=== PATIENT | female | born 1940 | race Caucasian/White ===

== ENCOUNTER 2018-07-10 13:00 | Outpatient (RCR) | payer MEDICARE, OTHER, SELFPAY ==
--- NOTE | 2018-06-11 13:40 | PT.OIE ---
Current Diagnoses Repeated falls (06/10/18) Provider Visit Care Team Role Provider Type Serena Dye MD Attending Provider Non-Staff Primary Care Provider Specialty: [facility] Practice Address: [address] [place] [address], [place], [address] Email: Physical Therapy Initial Evaluation PT-OP-A Visit Information Start: 06/10/18 16:43 Freq: Status: Active Protocol: Document 06/10/18 16:00 (Rec: 06/10/18 16:45 [email or web address]) Out-Patient Physical Therapy Visit Information Visit Information Visit Type Initial Evaluation Visit Note Pt just received fluid injections on B knees yesterday. Pt is unable to recall the type of injections Visit Start Time 16:00 Visit Stop Time 16:45 Total Visit Minutes 45 Visit Number 1 Number of INSULATION MACHINE OPERATOR Visits 0 Evaluation Information Evaluation Date 06/10/18 Precautions Precautions High fall risk PT-OP-B Current Condition Start: 06/10/18 16:43 Freq: Status: Active Protocol: Document 06/10/18 16:00 HH (Rec: 06/10/18 18:16 HH [email or web address]) Current Condition History of Current Condition Onset Date couple years ago Current Complaints frequent falls, Chronic B knee pain History of Current Condition Pt c/o onset of falling since couple years ago. Pt reports it is primarily due to her chronic low back pain and chronic B knee pain. Pt had multiple falls over the past few years. She had 5 falls within the past 5 months and she explained it has been getting worse primarily due to a fall on 08/02/17 who landed on her B knees. Pt started experiencing increased knee pain, weakness since then that this accident caused ongoing episodes of knee buckling. This increases her frequency of falls tremendously by tripping over obstacles or losing balance. Pt had received cortisone shots for pain management but it didnt help. Pt had 2 injections to increased joint fluid at her knees yesterday but she wasnt able to recall the name of it. Pt also stated she tends to feel dizzy or spinning while extending her head, and tends to lose balance if she is multitasking while walking. Pt's orthopedic MD from yesterday visit prescribed her to use 4WW for mobility for fall prevention. Prior Treatments and Tests antiimflammatory injections on B knees, fluid injections on B knees. Treatment Goals Patient/Caregiver Goals 1. To be able to walk her dog 2 miles a day without using AD 2. To strengthen her B knees 3. To be able to walk outside of the house on the uneven surface without AD 4. Not to have a fall again. Prior Functional Status Baseline Function- ADL's Independent Baseline Function- Mobility Independent Baseline Function- Gait pt was able to walk her dog 2 miles per day prior to last summer Baseline Function- Other Pt was able to amb in community without AD very often prior to last summer. Current Functional Impairments (Reported) Functional Limitations- Mobility/Gait Pt is mostly home bound at this point and is a home ambulator. Pt is afraid to walk outside of her house due to uneven ground. Pt still drives as needed. Pt also uses step to for stair negotiation with b rails due to knee pain and decreased balance. Personal Factors Other Personal Factors That May Effect Depression Therapy/Recovery B knee OA [place] memory loss possible vestibular impairment history of falls PT-OP-C Subjective Start: 06/10/18 16:43 Freq: Status: Active Protocol: Document 06/10/18 16:00 (Rec: 06/10/18 18:16 [email or web address]) OP-PT Subjective Patient Comments Patient Comments My balance is pretty bad at this point and often fall. Patient Questionnaires ABC- Activity Specific Balance Confidence Scale ABC Score 35 ABC Functional Impairment 60 to <80% Impaired (Score 21- 40) Dizziness Handicap Inventory DHI Score 80 DHI Functional Impairment 80 to 99% Impaired (Score 80- 99) OP-PT Pain Assessment Location Bilateral Knee Pain Location Details joint line Intensity 7 Scale Used Numeric (1 - 10) Description Acute Frequency Constant Pain Aggravating Factors Activity Exercise Standing Walking Stair Climbing Pain Alleviating Factors Inactivity PT-OP-D Balance Start: 06/10/18 16:43 Freq: Status: Active Protocol: Document 06/10/18 16:00 HH (Rec: 06/10/18 18:17 [email or web address]) OP-PT Balance Assessment Sitting Balance Static Sitting Balance Ability Normal Dynamic Sitting Balance Ability Normal Standing Balance Static Standing Balance Ability Good Dynamic Standing Balance Ability Fair Device Used none Standing Balance Comments Able to stand unsupported with EO/ EC. but excessive/ delayed sway with small perturbations Balance Tests Espino Balance Test Espino Balance Test Score 33 Espino Impairment Rating 40 to 59% Impaired (Score 23- 33) Single Limb Standing Single Limb- Right 5 Single Limb- Left 0 Delaney Fall Scale Copyright Permission Rhett JM, Rhett RM, Emre SJ. Development of a scale to identify the fall- prone patient. Can J Aging 1989;8;366-7. Shaye Delaney (2009). Preventing patient falls. (2nd ed). [place]: Akins. PT-OP-E Functional Tests Start: 06/10/18 16:43 Freq: Status: Active Protocol: Document 06/10/18 16:00 HH (Rec: 06/10/18 18:16 HH [email or web address]) Functional Tests 6 Minute Walk Test Distance 390 Comments pt stopped at 4 mins due to increased B knee pain Dynamic Gait Index (DGI) Score 12 DGI Impairment Rating 40 to <60% Impaired (Score 10- 14) PT-OP-G Mobility & Gait Start: 06/10/18 16:43 Freq: Status: Active Protocol: Document 06/10/18 16:00 HH (Rec: 06/11/18 13:32 HH [email or web address]) OP Gait Assessment Gait Gait Assistance Required: Independent Distance (Feet) 300 Able to Maintain Weight Bearing Status Yes During Gait Assistive Devices Assistive Device None Gait Deviations General Gait Pattern Antalgic Decreased Stride Length Decreased Feet Clearance Factors Limiting Gait Function Factors Limiting Gait Function Decreased Activity Tolerance Decreased Strength Limited Range of Motion Pain Poor Balance Comments Gait Comments Pt tends to stop for talking / multitasking during ambulation She also has uneven stride length with antaglic gait more on the R side due to B knee pain R>L. pt tends to take increased time and appear unsteady for turns. She often shows signs of LOB/ mis-stepping during amb with speed changes. PT-OP-J Posture/Palpation/Skin Start: 06/10/18 16:43 Freq: Status: Active Protocol: Document 06/10/18 16:00 HH (Rec: 06/11/18 13:32 HH [email or web address]) Posture Evaluation Position Standing Head/C-Spine Posture Forward Head Shoulder Posture (L) Rounded (R) Rounded Knee Posture (L) Genu Valgus (R) Genu Valgus (R) Excess Flexion Skin Assessment Other Assessments Skin Assessment Comments varicose veins on R knee laterally and medially PT-OP-M Strength Start: 06/10/18 16:43 Freq: Status: Active Protocol: Document 06/10/18 16:00 (Rec: 06/11/18 13:32 [email or web address]) Hip Strength Hip Manual Muscle Testing Right Flexion (L2) 4+ Good+ Extension (S1) 4+ Good+ Abduction 4 Good Adduction 4+ Good+ Left Flexion (L2) 4+ Good+ Extension (S1) 4+ Good+ Abduction 4 Good Adduction 4+ Good+ Knee Strength Knee Manual Muscle Testing Right Flexion (S2) 3+ Fair+ Extension (L3) 3 Fair Comments pain during resisted extension / flexion Left Flexion (S2) 3+ Fair+ Extension (L3) 3 Fair Comments pain during resisted extension / flexion PT-OP-T Assessment and Plan Start: 06/10/18 16:43 Freq: Status: Active Protocol: Document 06/10/18 16:00 (Rec: 06/11/18 13:32 [email or web address]) Physical Therapy Assessment Rehab Potential Rehabilitation Potential Good Evaluation Complexity Number of Personal Factors/Comorbidities 3 or More Number of Body Systems Impaired 4 or More Clinical Presentation at Evaluation Evolving Impairments Impairments Activity Tolerance Balance Functional Activities Functional Mobility Gait Pain Posture ROM Sensation Soft Tissue Mobility Strength Other Concerns Fall Risk high Barriers to Rehabilitation depression, OA in B knees, chronic back pain, [place], memory loss Goals stair negotiation Impairment use rails with step to pattern Nursing Home Goal (LTG) Pt will be able to use step through pattern to negotiate stairs effectively with / without handrails. LTG Duration 12 weeks Walking distance Impairment unable to walk in the community Presentation Team Member Goal (LTG) pt will be able to walk with her dog 1 mile a day without AD to improve her quality of life LTG Duration 12 weeks ABC balance scale Impairment low ABC balance scale (low confidence level) Presentation Team Member Goal (LTG) pt will increase her confidence regarding her balance for daily activites to 50% (currently at 35%) ESPINO balance Impairment low ESPINO balance score at 33 Presentation Team Member Goal (LTG) pt will be able to increase her ESPINO score to 45/56 to amb safely without assistive device and less likely to fall LTG Duration 12 weeks Assessment Summary Assessment Pt is high complexity with frequent falls and chronic back and bilateral knee pain. Upon assessment, pt has low ESPINO score 33/56, DGI 12/24, Dizziness questionnaire at 80 and ABC balance scale at 35%. She is also only able to amb 390 feet without AD for 6 min walk test who has to stop at 4th min due to increased B knee pain. Pt presents to clinic today with significant B knee pain R>L 6-09/02 post fluid injections as pt unable to recall the name, which makes balance assessment difficult. Pt states her balance issue started years ago but getting signficant worse after she fell on her knees last summer which caused her a lot of pain with buckling episodes. Pt tends to loss her balance with head turns, talking/ multitasking during amb, turning while walking and single leg stance. She also stated she tends to experience spinning sensation with cervical extension. Pt will need cont assessment for next visit for her vestibular system and B knee and trunk ROM. Pt will benefit from skilled physical therapy for B LE strengthening, flexibility training, gait training, and balance training, walking program and possible vestibular rehab. Physical Therapy Plan Frequency and Duration Frequency of Treatment 2x/Week Duration of Treatment 12 weeks Plan of Care Start Date 06/10/18 Plan of Care End Date 09/09/18 Therapeutic Interventions Therapeutic Interventions Aquatic Therapy Balance Training Coordination Training Gait Training Home Exercise Program Joint Mobilizations Manual Therapy Neuromuscular Re-education Patient/Caregiver Education Self-Care/Home Management Soft Tissue Mobilization Therapeutic Activities Therapeutic Exercises Vestibular Rehabilitation Next Visit Focus/Plan Next Note Type Treatment Note Next Visit Plan cont assess pt's overall mobility, vestibular assessment. check pt's knee pain start with gentle ROM/ strengthening as malaika on B LEs, static balance with head turns , multitasking, EO, EC
--- NOTE | 2018-06-11 13:40 | PT.OPPOC ---
Current Diagnoses Repeated falls (06/10/18) Provider Visit Care Team Role Provider Type Serena Dye MD Attending Provider Non-Staff Primary Care Provider Specialty: Family Practice Address: [address] [place] [address], [place], [place], [facility] Email: Plan Of Care PT-OP-T Assessment and Plan Start: 06/10/18 16:43 Freq: Status: Active Protocol: Document 06/10/18 16:00 HH (Rec: 06/11/18 13:32 HH [email or web address]) Physical Therapy Assessment Rehab Potential Rehabilitation Potential Good Evaluation Complexity Number of Personal Factors/Comorbidities 3 or More Number of Body Systems Impaired 4 or More Clinical Presentation at Evaluation Evolving Impairments Impairments Activity Tolerance Balance Functional Activities Functional Mobility Gait Pain Posture ROM Sensation Soft Tissue Mobility Strength Other Concerns Fall Risk high Barriers to Rehabilitation depression, OA in B knees, chronic back pain, [place], memory loss Goals stair negotiation Impairment use rails with step to pattern Half-Way Goal (LTG) Pt will be able to use step through pattern to negotiate stairs effectively with / without handrails. LTG Duration 12 weeks Walking distance Impairment unable to walk in the community Half-Way Goal (LTG) pt will be able to walk with her dog 1 mile a day without AD to improve her quality of life LTG Duration 12 weeks ABC balance scale Impairment low ABC balance scale (low confidence level) Half-Way Goal (LTG) pt will increase her confidence regarding her balance for daily activites to 50% (currently at 35%) ESPINO balance Impairment low ESPINO balance score at 33 Local Telephone Operator Goal (LTG) pt will be able to increase her ESPINO score to 45/56 to amb safely without assistive device and less likely to fall LTG Duration 12 weeks Assessment Summary Assessment Pt is high complexity with frequent falls and chronic back and bilateral knee pain. Upon assessment, pt has low ESPINO score 33/56, DGI 12/24, Dizziness questionnaire at 80 and ABC balance scale at 35%. She is also only able to amb 390 feet without AD for 6 min walk test who has to stop at 4th min due to increased B knee pain. Pt presents to clinic today with significant B knee pain R>L 6-7/10 post fluid injections as pt unable to recall the name, which makes balance assessment difficult. Pt states her balance issue started years ago but getting signficant worse after she fell on her knees last summer which caused her a lot of pain with buckling episodes. Pt tends to loss her balance with head turns, talking/ multitasking during amb, turning while walking and single leg stance. She also stated she tends to experience spinning sensation with cervical extension. Pt will need cont assessment for next visit for her vestibular system and B knee and trunk ROM. Pt will benefit from skilled physical therapy for B LE strengthening, flexibility training, gait training, and balance training, walking program and possible vestibular rehab. Physical Therapy Plan Frequency and Duration Frequency of Treatment 2x/Week Duration of Treatment 12 weeks Plan of Care Start Date 06/10/18 Plan of Care End Date 09/09/18 Therapeutic Interventions Therapeutic Interventions Aquatic Therapy Balance Training Coordination Training Gait Training Home Exercise Program Joint Mobilizations Manual Therapy Neuromuscular Re-education Patient/Caregiver Education Self-Care/Home Management Soft Tissue Mobilization Therapeutic Activities Therapeutic Exercises Vestibular Rehabilitation Next Visit Focus/Plan Next Note Type Treatment Note Next Visit Plan cont assess pt's overall mobility, vestibular assessment. check pt's knee pain start with gentle ROM/ strengthening as malaika on B LEs, static balance with head turns , multitasking, EO, EC Plan of Care Dates Plan of Care Start Date 06/10/18 Plan of Care End Date 09/09/18 Please Sign and Return: I have reviewed this Plan of Care and certify that the skilled therapy services above are required to meet the patient?s needs. Physician Signature Date Printed Name and Credentials Clinical Instructor Signature Printed Name and Credentials
--- NOTE | 2018-06-12 15:28 | PT.OTN ---
Current Diagnoses Repeated falls (06/12/18) Physical Therapy Treatment Note PT-OP-A Visit Information Start: 06/10/18 16:43 Freq: Status: Active Protocol: Document 06/12/18 15:11 SA (Rec: 06/12/18 15:28 SA [email or web address]) Out-Patient Physical Therapy Visit Information Visit Information Visit Type Treatment Note Visit Note Pt reports B knees are worse than back pain. Visit Start Time 13:45 Visit Stop Time 14:30 Total Visit Minutes 45 Visit Number 2 Number of CYTOTECHNOLOGIST SUPERVISOR Visits 1 PT-OP-B Current Condition Start: 06/10/18 16:43 Freq: Status: Active Protocol: Document 06/10/18 16:00 HH (Rec: 06/10/18 18:16 HH [email or web address]) Current Condition History of Current Condition Onset Date couple years ago Current Complaints frequent falls, Chronic B knee pain History of Current Condition Pt c/o onset of falling since couple years ago. Pt reports it is primarily due to her chronic low back pain and chronic B knee pain. Pt had multiple falls over the past few years. She had 5 falls within the past 5 months and she explained it has been getting worse primarily due to a fall on 08/02/17 who landed on her B knees. Pt started experiencing increased knee pain, weakness since then that this accident caused ongoing episodes of knee buckling. This increases her frequency of falls tremendously by tripping over obstacles or losing balance. Pt had received cortisone shots for pain management but it didnt help. Pt had 2 injections to increased joint fluid at her knees yesterday but she wasnt able to recall the name of it. Pt also stated she tends to feel dizzy or spinning while extending her head, and tends to lose balance if she is multitasking while walking. Pt's orthopedic MD from yesterday visit prescribed her to use 4WW for mobility for fall prevention. Prior Treatments and Tests antiimflammatory injections on B knees, fluid injections on B knees. Treatment Goals Patient/Caregiver Goals 1. To be able to walk her dog 2 miles a day without using AD 2. To strengthen her B knees 3. To be able to walk outside of the house on the uneven surface without AD 4. Not to have a fall again. Prior Functional Status Baseline Function- ADL's Independent Baseline Function- Mobility Independent Baseline Function- Gait pt was able to walk her dog 2 miles per day prior to last summer Baseline Function- Other Pt was able to amb in community without AD very often prior to last summer. Current Functional Impairments (Reported) Functional Limitations- Mobility/Gait Pt is mostly home bound at this point and is a home ambulator. Pt is afraid to walk outside of her house due to uneven ground. Pt still drives as needed. Pt also uses step to for stair negotiation with b rails due to knee pain and decreased balance. Personal Factors Other Personal Factors That May Effect Depression Therapy/Recovery B knee OA [place] memory loss possible vestibular impairment history of falls PT-OP-C Subjective Start: 06/10/18 16:43 Freq: Status: Active Protocol: Document 06/12/18 15:11 SA (Rec: 06/12/18 15:28 SA [email or web address]) OP-PT Subjective Patient Comments Patient Comments Pt states her DR perscribed her a walker d/t frequent falls but she has not got it yet, PT-OP-D Balance Start: 06/10/18 16:43 Freq: Status: Active Protocol: Document 06/10/18 16:00 HH (Rec: 06/10/18 18:17 HH [email or web address]) OP-PT Balance Assessment Sitting Balance Static Sitting Balance Ability Normal Dynamic Sitting Balance Ability Normal Standing Balance Static Standing Balance Ability Good Dynamic Standing Balance Ability Fair Device Used none Standing Balance Comments Able to stand unsupported with EO/ EC. but excessive/ delayed sway with small perturbations Balance Tests Barrientos Balance Test Barrientos Balance Test Score 33 Barrientos Impairment Rating 40 to 59% Impaired (Score 23- 33) Single Limb Standing Single Limb- Right 5 Single Limb- Left 0 Delaney Fall Scale Copyright Permission Rhett JM, Rhett RM, Emre SJ. Development of a scale to identify the fall- prone patient. Can J Aging 1989;8;366-7. Shaye Delaney (2009). Preventing patient falls. (2nd ed). [place]: Akins. PT-OP-E Functional Tests Start: 06/10/18 16:43 Freq: Status: Active Protocol: Document 06/10/18 16:00 HH (Rec: 06/10/18 18:16 HH [email or web address]) Functional Tests 6 Minute Walk Test Distance 390 Comments pt stopped at 4 mins due to increased B knee pain Dynamic Gait Index (DGI) Score 12 DGI Impairment Rating 40 to <60% Impaired (Score 10- 14) PT-OP-G Mobility & Gait Start: 06/10/18 16:43 Freq: Status: Active Protocol: Document 06/10/18 16:00 HH (Rec: 06/11/18 13:32 [email or web address]) OP Gait Assessment Gait Gait Assistance Required: Independent Distance (Feet) 300 Able to Maintain Weight Bearing Status Yes During Gait Assistive Devices Assistive Device None Gait Deviations General Gait Pattern Antalgic Decreased Stride Length Decreased Feet Clearance Factors Limiting Gait Function Factors Limiting Gait Function Decreased Activity Tolerance Decreased Strength Limited Range of Motion Pain Poor Balance Comments Gait Comments Pt tends to stop for talking / multitasking during ambulation She also has uneven stride length with antaglic gait more on the R side due to B knee pain R>L. pt tends to take increased time and appear unsteady for turns. She often shows signs of LOB/ mis-stepping during amb with speed changes. PT-OP-J Posture/Palpation/Skin Start: 06/10/18 16:43 Freq: Status: Active Protocol: Document 06/10/18 16:00 HH (Rec: 06/11/18 13:32 [email or web address]) Posture Evaluation Position Standing Head/C-Spine Posture Forward Head Shoulder Posture (L) Rounded (R) Rounded Knee Posture (L) Genu Valgus (R) Genu Valgus (R) Excess Flexion Skin Assessment Other Assessments Skin Assessment Comments varicose veins on R knee laterally and medially PT-OP-M Strength Start: 06/10/18 16:43 Freq: Status: Active Protocol: Document 06/10/18 16:00 HH (Rec: 06/11/18 13:32 [email or web address]) Hip Strength Hip Manual Muscle Testing Right Flexion (L2) 4+ Good+ Extension (S1) 4+ Good+ Abduction 4 Good Adduction 4+ Good+ Left Flexion (L2) 4+ Good+ Extension (S1) 4+ Good+ Abduction 4 Good Adduction 4+ Good+ Knee Strength Knee Manual Muscle Testing Right Flexion (S2) 3+ Fair+ Extension (L3) 3 Fair Comments pain during resisted extension / flexion Left Flexion (S2) 3+ Fair+ Extension (L3) 3 Fair Comments pain during resisted extension / flexion PT-OP-Q Treatments Start: 06/10/18 16:43 Freq: Status: Active Protocol: Document 06/12/18 15:11 SA (Rec: 04/19/19 15:28 [email or web address]) Cardio Equipment Recumbent Elliptical (Biodex) Duration (Minutes) 5 Resistance 2 Therapeutic Exercises Supine Exercises PPT with TrA activation Reps/Minutes 5 x 10 Comments Needs verbal/tactile cues, difficulty activating HS sets/heel digs Side bilateral Reps/Minutes 5 x 10 Gluteal sets Side bilateral Reps/Minutes 5 x 10 Supine SAQs Side bilateral Resistance 0# Equipment Used bolster Reps/Minutes 10x Neuro Re-Education Treatment Balance Activities Lateral stepping Details no resistance Surface level Equipment at bar Reps/Duration 2 lengths Slow march Surface level Equipment at bar Reps/Duration 4 lengths Comments focus on control and alignment SLS Surface level Reps/Duration 3-5 holds 3x each Heel/Toe walking Surface level Equipment at bar Reps/Duration 4 lengths PT-OP-R Modalities Start: 06/10/18 16:43 Freq: Status: Active Protocol: Document 06/12/18 15:11 SA (Rec: 06/12/18 15:28 [email or web address]) Hot Pack/Cold Pack Treatment Cold Pack Location B knees Patient Position Supine Treatment Duration (minutes) 10 Patient Tolerance Good PT-OP-T Assessment and Plan Start: 06/10/18 16:43 Freq: Status: Active Protocol: Document 06/12/18 15:11 SA (Rec: 06/12/18 15:28 [email or web address]) Physical Therapy Assessment Assessment Summary Assessment Initiated gentle LE strengthening and dynamic balance program to improve balance/stability and reduce risk of falls. Pt tolerated well, CP to finish. Physical Therapy Plan Next Visit Focus/Plan Next Note Type Treatment Note Next Visit Plan Assess response to increased activity/exercise, progress balance, gait and strength training as tolerated.
--- NOTE | 2018-06-24 19:12 | PT.OTN ---
Current Diagnoses Repeated falls (06/24/18) Physical Therapy Treatment Note PT-OP-A Visit Information Start: 06/10/18 16:43 Freq: Status: Active Protocol: Document 06/24/18 14:30 HH (Rec: 06/24/18 19:12 HH [email or web address]) Out-Patient Physical Therapy Visit Information Visit Information Visit Type Treatment Note Visit Note pt just had 3rd fluid injections on B knees. Will have her 4th one next week which is the final one as well . Visit Start Time 14:30 Visit Stop Time 15:15 Total Visit Minutes 45 Visit Number 3 Number of DEPUTY COMMISSIONER Visits 0 PT-OP-B Current Condition Start: 06/10/18 16:43 Freq: Status: Active Protocol: Document 06/10/18 16:00 HH (Rec: 06/10/18 18:16 HH [email or web address]) Current Condition History of Current Condition Onset Date couple years ago Current Complaints frequent falls, Chronic B knee pain History of Current Condition Pt c/o onset of falling since couple years ago. Pt reports it is primarily due to her chronic low back pain and chronic B knee pain. Pt had multiple falls over the past few years. She had 5 falls within the past 5 months and she explained it has been getting worse primarily due to a fall on 08/02/17 who landed on her B knees. Pt started experiencing increased knee pain, weakness since then that this accident caused ongoing episodes of knee buckling. This increases her frequency of falls tremendously by tripping over obstacles or losing balance. Pt had received cortisone shots for pain management but it didnt help. Pt had 2 injections to increased joint fluid at her knees yesterday but she wasnt able to recall the name of it. Pt also stated she tends to feel dizzy or spinning while extending her head, and tends to lose balance if she is multitasking while walking. Pt's orthopedic MD from yesterday visit prescribed her to use 4WW for mobility for fall prevention. Prior Treatments and Tests antiimflammatory injections on B knees, fluid injections on B knees. Treatment Goals Patient/Caregiver Goals 1. To be able to walk her dog 2 miles a day without using AD 2. To strengthen her B knees 3. To be able to walk outside of the house on the uneven surface without AD 4. Not to have a fall again. Prior Functional Status Baseline Function- ADL's Independent Baseline Function- Mobility Independent Baseline Function- Gait pt was able to walk her dog 2 miles per day prior to last summer Baseline Function- Other Pt was able to amb in community without AD very often prior to last summer. Current Functional Impairments (Reported) Functional Limitations- Mobility/Gait Pt is mostly home bound at this point and is a home ambulator. Pt is afraid to walk outside of her house due to uneven ground. Pt still drives as needed. Pt also uses step to for stair negotiation with b rails due to knee pain and decreased balance. Personal Factors Other Personal Factors That May Effect Depression Therapy/Recovery B knee OA [place] memory loss possible vestibular impairment history of falls PT-OP-C Subjective Start: 06/10/18 16:43 Freq: Status: Active Protocol: Document 06/24/18 14:30 HH (Rec: 06/24/18 19:12 HH [email or web address]) OP-PT Subjective Patient Comments Patient Comments My knee has been sore today after injection. I also got my walker but i dont think i really need it at this point. Im feeling less dizzy and slightly stronger lately. PT-OP-D Balance Start: 06/10/18 16:43 Freq: Status: Active Protocol: Document 06/10/18 16:00 HH (Rec: 06/10/18 18:17 HH [email or web address]) OP-PT Balance Assessment Sitting Balance Static Sitting Balance Ability Normal Dynamic Sitting Balance Ability Normal Standing Balance Static Standing Balance Ability Good Dynamic Standing Balance Ability Fair Device Used none Standing Balance Comments Able to stand unsupported with EO/ EC. but excessive/ delayed sway with small perturbations Balance Tests Barrientos Balance Test Barrientos Balance Test Score 33 Barrientos Impairment Rating 40 to 59% Impaired (Score 23- 33) Single Limb Standing Single Limb- Right 5 Single Limb- Left 0 Delaney Fall Scale Copyright Permission Rhett FREIRE, Rhett RM, Emre SJ. Development of a scale to identify the fall- prone patient. Can J Aging 1989;8;366-7. Shaye Delaney (2009). Preventing patient falls. (2nd ed). [place]: [employer]. PT-OP-E Functional Tests Start: 06/10/18 16:43 Freq: Status: Active Protocol: Document 06/10/18 16:00 HH (Rec: 06/10/18 18:16 HH [email or web address]) Functional Tests 6 Minute Walk Test Distance 390 Comments pt stopped at 4 mins due to increased B knee pain Dynamic Gait Index (DGI) Score 12 DGI Impairment Rating 40 to <60% Impaired (Score 10- 14) PT-OP-G Mobility & Gait Start: 06/10/18 16:43 Freq: Status: Active Protocol: Document 06/10/18 16:00 HH (Rec: 06/11/18 13:32 [email or web address]) OP Gait Assessment Gait Gait Assistance Required: Independent Distance (Feet) 300 Able to Maintain Weight Bearing Status Yes During Gait Assistive Devices Assistive Device None Gait Deviations General Gait Pattern Antalgic Decreased Stride Length Decreased Feet Clearance Factors Limiting Gait Function Factors Limiting Gait Function Decreased Activity Tolerance Decreased Strength Limited Range of Motion Pain Poor Balance Comments Gait Comments Pt tends to stop for talking / multitasking during ambulation She also has uneven stride length with antaglic gait more on the R side due to B knee pain R>L. pt tends to take increased time and appear unsteady for turns. She often shows signs of LOB/ mis-stepping during amb with speed changes. PT-OP-J Posture/Palpation/Skin Start: 06/10/18 16:43 Freq: Status: Active Protocol: Document 06/10/18 16:00 HH (Rec: 06/11/18 13:32 [email or web address]) Posture Evaluation Position Standing Head/C-Spine Posture Forward Head Shoulder Posture (L) Rounded (R) Rounded Knee Posture (L) Genu Valgus (R) Genu Valgus (R) Excess Flexion Skin Assessment Other Assessments Skin Assessment Comments varicose veins on R knee laterally and medially PT-OP-M Strength Start: 06/10/18 16:43 Freq: Status: Active Protocol: Document 06/10/18 16:00 HH (Rec: 06/11/18 13:32 [email or web address]) Hip Strength Hip Manual Muscle Testing Right Flexion (L2) 4+ Good+ Extension (S1) 4+ Good+ Abduction 4 Good Adduction 4+ Good+ Left Flexion (L2) 4+ Good+ Extension (S1) 4+ Good+ Abduction 4 Good Adduction 4+ Good+ Knee Strength Knee Manual Muscle Testing Right Flexion (S2) 3+ Fair+ Extension (L3) 3 Fair Comments pain during resisted extension / flexion Left Flexion (S2) 3+ Fair+ Extension (L3) 3 Fair Comments pain during resisted extension / flexion PT-OP-Q Treatments Start: 06/10/18 16:43 Freq: Status: Active Protocol: Document 06/24/18 14:30 HH (Rec: 06/24/18 19:12 HH [email or web address]) Cardio Equipment Recumbent Bicycle Duration (Minutes) 6 Resistance 5 Seat Position 5 Gym Equipment Shuttle Recovery B squat 2 Details forefoot push Resistance 35 Shuttle Recovery Platform Stable Reps/Time cues on slow squat, facilitate knee flexion B squat Details heel push off Resistance 50 Shuttle Recovery Platform Stable Reps/Time cues on slow squat Therapeutic Exercises Supine Exercises knee to chest Side bilateral Reps/Minutes 10 x3 Comments PT manual assistance HS sets/heel digs Side bilateral Reps/Minutes 5 x 10 Supine SAQs Side bilateral Resistance 0# Equipment Used towel Reps/Minutes 10 secs hold x 3 Neuro Re-Education Treatment Balance Activities Slow march Surface level Equipment at //bar, yoga warren on floor Reps/Duration 8 round trips Comments focus on control and alignment SLS Surface level Reps/Duration 3-5 holds 3x each PT-OP-R Modalities Start: 06/10/18 16:43 Freq: Status: Active Protocol: Document 06/12/18 15:11 SA (Rec: 06/12/18 15:28 SA [email or web address]) Hot Pack/Cold Pack Treatment Cold Pack Location B knees Patient Position Supine Treatment Duration (minutes) 10 Patient Tolerance Good PT-OP-T Assessment and Plan Start: 06/10/18 16:43 Freq: Status: Active Protocol: Document 06/24/18 14:30 HH (Rec: 06/24/18 19:12 HH [email or web address]) Physical Therapy Assessment Assessment Summary Assessment Pt showed improved B knee flexibility and reduced of symptoms possibly due to her knee injections. Tx focused on LE strengthening with leg press (slow control with heel/ forefoot to facilitate knee flexion end range strength). High knee walking, and marching for single leg balance. Physical Therapy Plan Next Visit Focus/Plan Next Note Type Treatment Note Next Visit Plan Assess response to increased recumbent bike, leg press to POC activity/exercise, progress balance, gait and strength training as tolerated. Single leg balance/ strengthening
--- NOTE | 2018-06-26 14:17 | PT.OTN ---
Current Diagnoses Repeated falls (06/26/18) Physical Therapy Treatment Note PT-OP-A Visit Information Start: 06/10/18 16:43 Freq: Status: Active Protocol: Document 06/26/18 14:11 SA (Rec: 06/26/18 14:17 SA [email or web address]) Out-Patient Physical Therapy Visit Information Visit Information Visit Type Treatment Note Visit Start Time 13:00 Visit Stop Time 13:45 Total Visit Minutes 45 Visit Number 4 Number of AUXILIARY POWERPLANT OPERATOR Visits 1 PT-OP-B Current Condition Start: 06/10/18 16:43 Freq: Status: Active Protocol: Document 06/10/18 16:00 HH (Rec: 06/10/18 18:16 HH [email or web address]) Current Condition History of Current Condition Onset Date couple years ago Current Complaints frequent falls, Chronic B knee pain History of Current Condition Pt c/o onset of falling since couple years ago. Pt reports it is primarily due to her chronic low back pain and chronic B knee pain. Pt had multiple falls over the past few years. She had 5 falls within the past 5 months and she explained it has been getting worse primarily due to a fall on 08/02/17 who landed on her B knees. Pt started experiencing increased knee pain, weakness since then that this accident caused ongoing episodes of knee buckling. This increases her frequency of falls tremendously by tripping over obstacles or losing balance. Pt had received cortisone shots for pain management but it didnt help. Pt had 2 injections to increased joint fluid at her knees yesterday but she wasnt able to recall the name of it. Pt also stated she tends to feel dizzy or spinning while extending her head, and tends to lose balance if she is multitasking while walking. Pt's orthopedic MD from yesterday visit prescribed her to use 4WW for mobility for fall prevention. Prior Treatments and Tests antiimflammatory injections on B knees, fluid injections on B knees. Treatment Goals Patient/Caregiver Goals 1. To be able to walk her dog 2 miles a day without using AD 2. To strengthen her B knees 3. To be able to walk outside of the house on the uneven surface without AD 4. Not to have a fall again. Prior Functional Status Baseline Function- ADL's Independent Baseline Function- Mobility Independent Baseline Function- Gait pt was able to walk her dog 2 miles per day prior to last summer Baseline Function- Other Pt was able to amb in community without AD very often prior to last summer. Current Functional Impairments (Reported) Functional Limitations- Mobility/Gait Pt is mostly home bound at this point and is a home ambulator. Pt is afraid to walk outside of her house due to uneven ground. Pt still drives as needed. Pt also uses step to for stair negotiation with b rails due to knee pain and decreased balance. Personal Factors Other Personal Factors That May Effect Depression Therapy/Recovery B knee OA [place] memory loss possible vestibular impairment history of falls PT-OP-C Subjective Start: 06/10/18 16:43 Freq: Status: Active Protocol: Document 06/26/18 14:11 SA (Rec: 06/26/18 14:17 SA [email or web address]) OP-PT Subjective Patient Comments Patient Comments Pt reports knees are painful today, has not had any benefit from knee injections yet. PT-OP-D Balance Start: 06/10/18 16:43 Freq: Status: Active Protocol: Document 06/10/18 16:00 HH (Rec: 06/10/18 18:17 HH [email or web address]) OP-PT Balance Assessment Sitting Balance Static Sitting Balance Ability Normal Dynamic Sitting Balance Ability Normal Standing Balance Static Standing Balance Ability Good Dynamic Standing Balance Ability Fair Device Used none Standing Balance Comments Able to stand unsupported with EO/ EC. but excessive/ delayed sway with small perturbations Balance Tests Barrientos Balance Test Barrientos Balance Test Score 33 Barrientos Impairment Rating 40 to 59% Impaired (Score 23- 33) Single Limb Standing Single Limb- Right 5 Single Limb- Left 0 Delaney Fall Scale Copyright Permission Rhett FREIRE, Rhett RM, Emre SJ. Development of a scale to identify the fall- prone patient. Can J Aging 1989;8;366-7. Shaye Delaney (2009). Preventing patient falls. (2nd ed). [place]: [employer]. PT-OP-E Functional Tests Start: 06/10/18 16:43 Freq: Status: Active Protocol: Document 06/10/18 16:00 HH (Rec: 06/10/18 18:16 HH [email or web address]) Functional Tests 6 Minute Walk Test Distance 390 Comments pt stopped at 4 mins due to increased B knee pain Dynamic Gait Index (DGI) Score 12 DGI Impairment Rating 40 to <60% Impaired (Score 10- 14) PT-OP-G Mobility & Gait Start: 06/10/18 16:43 Freq: Status: Active Protocol: Document 06/10/18 16:00 HH (Rec: 06/11/18 13:32 [email or web address]) OP Gait Assessment Gait Gait Assistance Required: Independent Distance (Feet) 300 Able to Maintain Weight Bearing Status Yes During Gait Assistive Devices Assistive Device None Gait Deviations General Gait Pattern Antalgic Decreased Stride Length Decreased Feet Clearance Factors Limiting Gait Function Factors Limiting Gait Function Decreased Activity Tolerance Decreased Strength Limited Range of Motion Pain Poor Balance Comments Gait Comments Pt tends to stop for talking / multitasking during ambulation She also has uneven stride length with antaglic gait more on the R side due to B knee pain R>L. pt tends to take increased time and appear unsteady for turns. She often shows signs of LOB/ mis-stepping during amb with speed changes. PT-OP-J Posture/Palpation/Skin Start: 06/10/18 16:43 Freq: Status: Active Protocol: Document 06/10/18 16:00 HH (Rec: 06/11/18 13:32 [email or web address]) Posture Evaluation Position Standing Head/C-Spine Posture Forward Head Shoulder Posture (L) Rounded (R) Rounded Knee Posture (L) Genu Valgus (R) Genu Valgus (R) Excess Flexion Skin Assessment Other Assessments Skin Assessment Comments varicose veins on R knee laterally and medially PT-OP-M Strength Start: 06/10/18 16:43 Freq: Status: Active Protocol: Document 06/10/18 16:00 HH (Rec: 06/11/18 13:32 [email or web address]) Hip Strength Hip Manual Muscle Testing Right Flexion (L2) 4+ Good+ Extension (S1) 4+ Good+ Abduction 4 Good Adduction 4+ Good+ Left Flexion (L2) 4+ Good+ Extension (S1) 4+ Good+ Abduction 4 Good Adduction 4+ Good+ Knee Strength Knee Manual Muscle Testing Right Flexion (S2) 3+ Fair+ Extension (L3) 3 Fair Comments pain during resisted extension / flexion Left Flexion (S2) 3+ Fair+ Extension (L3) 3 Fair Comments pain during resisted extension / flexion PT-OP-Q Treatments Start: 06/10/18 16:43 Freq: Status: Active Protocol: Document 06/26/18 14:11 SA (Rec: 06/26/18 14:17 SA [email or web address]) Cardio Equipment Recumbent Bicycle Duration (Minutes) 6 Resistance 4 Seat Position 5 Gym Equipment Shuttle Recovery B squat 2 Details forefoot push Resistance 35 Shuttle Recovery Platform Stable Reps/Time cues on slow squat, facilitate knee flexion B squat Details heel push off Resistance 50 Shuttle Recovery Platform Stable Reps/Time cues on slow squat Therapeutic Exercises Supine Exercises PPT with TrA activation Reps/Minutes 5 x 10 Comments Needs verbal/tactile cues, difficulty activating HS sets/heel digs Side bilateral Reps/Minutes 5 x 10 Gluteal sets Side bilateral Reps/Minutes 5 x 10 Supine SAQs Side bilateral Resistance 0# Equipment Used towel Reps/Minutes 10 secs hold x 3 Neuro Re-Education Treatment Balance Activities Lateral stepping Details no resistance Surface level Equipment //bars Reps/Duration 2 lengths Slow march Surface level Reps/Duration 8 round trips Comments focus on control and alignment SLS Surface level Reps/Duration 3-5 holds 3x each Heel/Toe walking Surface level Equipment at bar Reps/Duration 4 lengths PT-OP-R Modalities Start: 06/10/18 16:43 Freq: Status: Active Protocol: Document 06/12/18 15:11 (Rec: 06/12/18 15:28 [email or web address]) Hot Pack/Cold Pack Treatment Cold Pack Location B knees Patient Position Supine Treatment Duration (minutes) 10 Patient Tolerance Good PT-OP-T Assessment and Plan Start: 06/10/18 16:43 Freq: Status: Active Protocol: Document 06/26/18 14:11 (Rec: 06/26/18 14:17 [email or web address]) Physical Therapy Assessment Assessment Summary Assessment Pt with more knee pain today but able to complete exercise without increase in pain, somewhat unsteady with gait today, progressing balance training. Physical Therapy Plan Next Visit Focus/Plan Next Note Type Treatment Note Next Visit Plan Continue to progress strength and balance as tolerated.
--- NOTE | 2018-07-01 15:02 | PT.OTN ---
Current Diagnoses Repeated falls (07/01/18) Physical Therapy Treatment Note PT-OP-A Visit Information Start: 06/10/18 16:43 Freq: Status: Active Protocol: Document 07/01/18 13:45 HH (Rec: 07/01/18 15:02 [email or web address]) Out-Patient Physical Therapy Visit Information Visit Information Visit Type Treatment Note Visit Start Time 13:45 Visit Stop Time 14:35 Total Visit Minutes 50 Visit Number 5 Number of REFLESHER Visits 0 PT-OP-B Current Condition Start: 06/10/18 16:43 Freq: Status: Active Protocol: Document 06/10/18 16:00 HH (Rec: 06/10/18 18:16 HH [email or web address]) Current Condition History of Current Condition Onset Date couple years ago Current Complaints frequent falls, Chronic B knee pain History of Current Condition Pt c/o onset of falling since couple years ago. Pt reports it is primarily due to her chronic low back pain and chronic B knee pain. Pt had multiple falls over the past few years. She had 5 falls within the past 5 months and she explained it has been getting worse primarily due to a fall on 08/02/17 who landed on her B knees. Pt started experiencing increased knee pain, weakness since then that this accident caused ongoing episodes of knee buckling. This increases her frequency of falls tremendously by tripping over obstacles or losing balance. Pt had received cortisone shots for pain management but it didnt help. Pt had 2 injections to increased joint fluid at her knees yesterday but she wasnt able to recall the name of it. Pt also stated she tends to feel dizzy or spinning while extending her head, and tends to lose balance if she is multitasking while walking. Pt's orthopedic MD from yesterday visit prescribed her to use 4WW for mobility for fall prevention. Prior Treatments and Tests antiimflammatory injections on B knees, fluid injections on B knees. Treatment Goals Patient/Caregiver Goals 1. To be able to walk her dog 2 miles a day without using AD 2. To strengthen her B knees 3. To be able to walk outside of the house on the uneven surface without AD 4. Not to have a fall again. Prior Functional Status Baseline Function- ADL's Independent Baseline Function- Mobility Independent Baseline Function- Gait pt was able to walk her dog 2 miles per day prior to last summer Baseline Function- Other Pt was able to amb in community without AD very often prior to last summer. Current Functional Impairments (Reported) Functional Limitations- Mobility/Gait Pt is mostly home bound at this point and is a home ambulator. Pt is afraid to walk outside of her house due to uneven ground. Pt still drives as needed. Pt also uses step to for stair negotiation with b rails due to knee pain and decreased balance. Personal Factors Other Personal Factors That May Effect Depression Therapy/Recovery B knee OA [place] memory loss possible vestibular impairment history of falls PT-OP-C Subjective Start: 06/10/18 16:43 Freq: Status: Active Protocol: Document 07/01/18 13:45 HH (Rec: 07/01/18 15:02 HH [email or web address]) OP-PT Subjective Patient Comments Patient Comments soreness R>L. Pt had her last injections (4th) on Friday. Pt was told by MD that she could take it again 6 months as needed. PT-OP-D Balance Start: 06/10/18 16:43 Freq: Status: Active Protocol: Document 06/10/18 16:00 HH (Rec: 06/10/18 18:17 [email or web address]) OP-PT Balance Assessment Sitting Balance Static Sitting Balance Ability Normal Dynamic Sitting Balance Ability Normal Standing Balance Static Standing Balance Ability Good Dynamic Standing Balance Ability Fair Device Used none Standing Balance Comments Able to stand unsupported with EO/ EC. but excessive/ delayed sway with small perturbations Balance Tests Barrientos Balance Test Barrientos Balance Test Score 33 Barrientos Impairment Rating 40 to 59% Impaired (Score 23- 33) Single Limb Standing Single Limb- Right 5 Single Limb- Left 0 Delaney Fall Scale Copyright Permission Rhett JM, Rhett RM, Emre SJ. Development of a scale to identify the fall- prone patient. Can J Aging 1989;8;366-7. Shaye Delaney (2009). Preventing patient falls. (2nd ed). [place]: Akins. PT-OP-E Functional Tests Start: 06/10/18 16:43 Freq: Status: Active Protocol: Document 06/10/18 16:00 HH (Rec: 06/10/18 18:16 HH [email or web address]) Functional Tests 6 Minute Walk Test Distance 390 Comments pt stopped at 4 mins due to increased B knee pain Dynamic Gait Index (DGI) Score 12 DGI Impairment Rating 40 to <60% Impaired (Score 10- 14) PT-OP-G Mobility & Gait Start: 06/10/18 16:43 Freq: Status: Active Protocol: Document 06/10/18 16:00 HH (Rec: 06/11/18 13:32 [email or web address]) OP Gait Assessment Gait Gait Assistance Required: Independent Distance (Feet) 300 Able to Maintain Weight Bearing Status Yes During Gait Assistive Devices Assistive Device None Gait Deviations General Gait Pattern Antalgic Decreased Stride Length Decreased Feet Clearance Factors Limiting Gait Function Factors Limiting Gait Function Decreased Activity Tolerance Decreased Strength Limited Range of Motion Pain Poor Balance Comments Gait Comments Pt tends to stop for talking / multitasking during ambulation She also has uneven stride length with antaglic gait more on the R side due to B knee pain R>L. pt tends to take increased time and appear unsteady for turns. She often shows signs of LOB/ mis-stepping during amb with speed changes. PT-OP-J Posture/Palpation/Skin Start: 06/10/18 16:43 Freq: Status: Active Protocol: Document 06/10/18 16:00 HH (Rec: 06/11/18 13:32 [email or web address]) Posture Evaluation Position Standing Head/C-Spine Posture Forward Head Shoulder Posture (L) Rounded (R) Rounded Knee Posture (L) Genu Valgus (R) Genu Valgus (R) Excess Flexion Skin Assessment Other Assessments Skin Assessment Comments varicose veins on R knee laterally and medially PT-OP-M Strength Start: 06/10/18 16:43 Freq: Status: Active Protocol: Document 06/10/18 16:00 HH (Rec: 06/11/18 13:32 [email or web address]) Hip Strength Hip Manual Muscle Testing Right Flexion (L2) 4+ Good+ Extension (S1) 4+ Good+ Abduction 4 Good Adduction 4+ Good+ Left Flexion (L2) 4+ Good+ Extension (S1) 4+ Good+ Abduction 4 Good Adduction 4+ Good+ Knee Strength Knee Manual Muscle Testing Right Flexion (S2) 3+ Fair+ Extension (L3) 3 Fair Comments pain during resisted extension / flexion Left Flexion (S2) 3+ Fair+ Extension (L3) 3 Fair Comments pain during resisted extension / flexion PT-OP-Q Treatments Start: 06/10/18 16:43 Freq: Status: Active Protocol: Document 07/01/18 13:45 HH (Rec: 05/08/19 15:02 HH [email or web address]) Cardio Equipment Recumbent Bicycle Duration (Minutes) 8 Resistance 4 Seat Position 5 Gym Equipment Shuttle Recovery B squat 2 Details wide feet and hip ER Resistance 50-100# Shuttle Recovery Platform Stable Reps/Time cues on slow squat, facilitate knee flexion Therapeutic Exercises Supine Exercises Gluteal sets Side bilateral Reps/Minutes 5 x 10 Supine SAQs Side bilateral Resistance 0# Equipment Used bolster Reps/Minutes 10 secs hold x 6 x3 Neuro Re-Education Treatment Balance Activities slow marching Details high knee walking Surface level Equipment next to grab bar Reps/Duration 5 mins hurdles Details forward and lateral Equipment hurdles Reps/Duration 10 mins Comments step over taran Slow march Details CGA and without support Surface level Reps/Duration 4 round trips Comments focus on control and alignment PT-OP-R Modalities Start: 06/10/18 16:43 Freq: Status: Active Protocol: Document 06/12/18 15:11 SA (Rec: 06/12/18 15:28 SA [email or web address]) Hot Pack/Cold Pack Treatment Cold Pack Location B knees Patient Position Supine Treatment Duration (minutes) 10 Patient Tolerance Good PT-OP-T Assessment and Plan Start: 06/10/18 16:43 Freq: Status: Active Protocol: Document 07/01/18 13:45 (Rec: 07/01/18 15:02 [email or web address]) Physical Therapy Assessment Assessment Summary Assessment Pt malaika tx well todayu did not c/o increase of B knee pain. Forcused on B LE VMO strengthenging (attempted VMO leg press with WBOS) and single leg balance activities. Physical Therapy Plan Next Visit Focus/Plan Next Note Type Treatment Note Next Visit Plan Continue to progress strength and balance as tolerated. vmo strengthening
--- NOTE | 2018-07-03 15:48 | PT.OTN ---
Current Diagnoses Repeated falls (07/03/18) Physical Therapy Treatment Note PT-OP-A Visit Information Start: 06/10/18 16:43 Freq: Status: Active Protocol: Document 07/03/18 15:38 SA (Rec: 07/03/18 15:48 SA [email or web address]) Out-Patient Physical Therapy Visit Information Visit Information Visit Type Treatment Note Visit Start Time 13:00 Visit Stop Time 13:45 Total Visit Minutes 45 Visit Number 6 Number of ENGINEERING INSTRUCTOR Visits 1 PT-OP-B Current Condition Start: 06/10/18 16:43 Freq: Status: Active Protocol: Document 06/10/18 16:00 HH (Rec: 06/10/18 18:16 HH [email or web address]) Current Condition History of Current Condition Onset Date couple years ago Current Complaints frequent falls, Chronic B knee pain History of Current Condition Pt c/o onset of falling since couple years ago. Pt reports it is primarily due to her chronic low back pain and chronic B knee pain. Pt had multiple falls over the past few years. She had 5 falls within the past 5 months and she explained it has been getting worse primarily due to a fall on 08/02/17 who landed on her B knees. Pt started experiencing increased knee pain, weakness since then that this accident caused ongoing episodes of knee buckling. This increases her frequency of falls tremendously by tripping over obstacles or losing balance. Pt had received cortisone shots for pain management but it didnt help. Pt had 2 injections to increased joint fluid at her knees yesterday but she wasnt able to recall the name of it. Pt also stated she tends to feel dizzy or spinning while extending her head, and tends to lose balance if she is multitasking while walking. Pt's orthopedic MD from yesterday visit prescribed her to use 4WW for mobility for fall prevention. Prior Treatments and Tests antiimflammatory injections on B knees, fluid injections on B knees. Treatment Goals Patient/Caregiver Goals 1. To be able to walk her dog 2 miles a day without using AD 2. To strengthen her B knees 3. To be able to walk outside of the house on the uneven surface without AD 4. Not to have a fall again. Prior Functional Status Baseline Function- ADL's Independent Baseline Function- Mobility Independent Baseline Function- Gait pt was able to walk her dog 2 miles per day prior to last summer Baseline Function- Other Pt was able to amb in community without AD very often prior to last summer. Current Functional Impairments (Reported) Functional Limitations- Mobility/Gait Pt is mostly home bound at this point and is a home ambulator. Pt is afraid to walk outside of her house due to uneven ground. Pt still drives as needed. Pt also uses step to for stair negotiation with b rails due to knee pain and decreased balance. Personal Factors Other Personal Factors That May Effect Depression Therapy/Recovery B knee OA KOI memory loss possible vestibular impairment history of falls PT-OP-C Subjective Start: 06/10/18 16:43 Freq: Status: Active Protocol: Document 07/03/18 15:38 SA (Rec: 07/03/18 15:48 SA [email or web address]) OP-PT Subjective Patient Comments Patient Comments Pt reports being sore in LEs after last visit but understands that is part of strengthening. Still no pain relief from injections. PT-OP-D Balance Start: 06/10/18 16:43 Freq: Status: Active Protocol: Document 06/10/18 16:00 HH (Rec: 06/10/18 18:17 HH [email or web address]) OP-PT Balance Assessment Sitting Balance Static Sitting Balance Ability Normal Dynamic Sitting Balance Ability Normal Standing Balance Static Standing Balance Ability Good Dynamic Standing Balance Ability Fair Device Used none Standing Balance Comments Able to stand unsupported with EO/ EC. but excessive/ delayed sway with small perturbations Balance Tests Barrientos Balance Test Barrientos Balance Test Score 33 Barrientos Impairment Rating 40 to 59% Impaired (Score 23- 33) Single Limb Standing Single Limb- Right 5 Single Limb- Left 0 Delaney Fall Scale Copyright Permission Rhett JM, Rhett RM, Emre SJ. Development of a scale to identify the fall- prone patient. Can J Aging 1989;8;366-7. Shaye Delaney (2009). Preventing patient falls. (2nd ed). [place]: Akins. PT-OP-E Functional Tests Start: 06/10/18 16:43 Freq: Status: Active Protocol: Document 06/10/18 16:00 HH (Rec: 06/10/18 18:16 HH [email or web address]) Functional Tests 6 Minute Walk Test Distance 390 Comments pt stopped at 4 mins due to increased B knee pain Dynamic Gait Index (DGI) Score 12 DGI Impairment Rating 40 to <60% Impaired (Score 10- 14) PT-OP-G Mobility & Gait Start: 06/10/18 16:43 Freq: Status: Active Protocol: Document 06/10/18 16:00 HH (Rec: 06/11/18 13:32 [email or web address]) OP Gait Assessment Gait Gait Assistance Required: Independent Distance (Feet) 300 Able to Maintain Weight Bearing Status Yes During Gait Assistive Devices Assistive Device None Gait Deviations General Gait Pattern Antalgic Decreased Stride Length Decreased Feet Clearance Factors Limiting Gait Function Factors Limiting Gait Function Decreased Activity Tolerance Decreased Strength Limited Range of Motion Pain Poor Balance Comments Gait Comments Pt tends to stop for talking / multitasking during ambulation She also has uneven stride length with antaglic gait more on the R side due to B knee pain R>L. pt tends to take increased time and appear unsteady for turns. She often shows signs of LOB/ mis-stepping during amb with speed changes. PT-OP-J Posture/Palpation/Skin Start: 06/10/18 16:43 Freq: Status: Active Protocol: Document 06/10/18 16:00 HH (Rec: 06/11/18 13:32 [email or web address]) Posture Evaluation Position Standing Head/C-Spine Posture Forward Head Shoulder Posture (L) Rounded (R) Rounded Knee Posture (L) Genu Valgus (R) Genu Valgus (R) Excess Flexion Skin Assessment Other Assessments Skin Assessment Comments varicose veins on R knee laterally and medially PT-OP-M Strength Start: 06/10/18 16:43 Freq: Status: Active Protocol: Document 06/10/18 16:00 HH (Rec: 06/11/18 13:32 [email or web address]) Hip Strength Hip Manual Muscle Testing Right Flexion (L2) 4+ Good+ Extension (S1) 4+ Good+ Abduction 4 Good Adduction 4+ Good+ Left Flexion (L2) 4+ Good+ Extension (S1) 4+ Good+ Abduction 4 Good Adduction 4+ Good+ Knee Strength Knee Manual Muscle Testing Right Flexion (S2) 3+ Fair+ Extension (L3) 3 Fair Comments pain during resisted extension / flexion Left Flexion (S2) 3+ Fair+ Extension (L3) 3 Fair Comments pain during resisted extension / flexion PT-OP-Q Treatments Start: 06/10/18 16:43 Freq: Status: Active Protocol: Document 07/03/18 15:38 SA (Rec: 07/03/18 15:48 SA [email or web address]) Cardio Equipment Recumbent Bicycle Duration (Minutes) 8 Resistance 5 Seat Position 5 Gym Equipment Shuttle Recovery B squat 2 Details wide feet and hip ER Resistance 50-100# Shuttle Recovery Platform Stable Reps/Time cues on slow squat, facilitate knee flexion B squat Details heel push off Resistance 50 Shuttle Recovery Platform Stable Reps/Time cues on slow squat Therapeutic Exercises Supine Exercises HS sets/heel digs Side bilateral Reps/Minutes 5 x 10 Supine SAQs Side bilateral Resistance 0# Equipment Used bolster Reps/Minutes 10 secs hold x 6 x3 Neuro Re-Education Treatment Balance Activities slow marching Details high knee walking Surface level Equipment next to grab bar Reps/Duration 5 mins hurdles Details forward and lateral Equipment hurdles Reps/Duration 10 mins Comments step over taran Lateral stepping Details no resistance Surface level Equipment //bars Reps/Duration 2 lengths SLS Surface level Reps/Duration 3-5 holds 3x each Heel/Toe walking Surface level Equipment at bar Reps/Duration 4 lengths PT-OP-R Modalities Start: 06/10/18 16:43 Freq: Status: Active Protocol: Document 06/12/18 15:11 SA (Rec: 06/12/18 15:28 SA [email or web address]) Hot Pack/Cold Pack Treatment Cold Pack Location B knees Patient Position Supine Treatment Duration (minutes) 10 Patient Tolerance Good PT-OP-T Assessment and Plan Start: 06/10/18 16:43 Freq: Status: Active Protocol: Document 07/03/18 15:38 SA (Rec: 07/03/18 15:48 SA [email or web address]) Physical Therapy Assessment Assessment Summary Assessment Focus on balance and LE strengthening with some R intermittent knee pain that has been her basline. Physical Therapy Plan Next Visit Focus/Plan Next Note Type Treatment Note Next Visit Plan Cont to progress LE strength and dynamic balance as tolerated, VMO progression.
--- NOTE | 2018-07-08 17:58 | PT.OTN ---
Current Diagnoses Repeated falls (07/08/18) Physical Therapy Treatment Note PT-OP-A Visit Information Start: 06/10/18 16:43 Freq: Status: Active Protocol: Document 07/08/18 13:45 HH (Rec: 07/08/18 17:58 HH [email or web address]) Out-Patient Physical Therapy Visit Information Visit Information Visit Type Treatment Note Visit Start Time 13:45 Visit Stop Time 14:30 Total Visit Minutes 45 Visit Number 7 Number of MARKET ANALYST Visits 0 PT-OP-B Current Condition Start: 06/10/18 16:43 Freq: Status: Active Protocol: Document 06/10/18 16:00 HH (Rec: 06/10/18 18:16 HH [email or web address]) Current Condition History of Current Condition Onset Date couple years ago Current Complaints frequent falls, Chronic B knee pain History of Current Condition Pt c/o onset of falling since couple years ago. Pt reports it is primarily due to her chronic low back pain and chronic B knee pain. Pt had multiple falls over the past few years. She had 5 falls within the past 5 months and she explained it has been getting worse primarily due to a fall on 08/02/17 who landed on her B knees. Pt started experiencing increased knee pain, weakness since then that this accident caused ongoing episodes of knee buckling. This increases her frequency of falls tremendously by tripping over obstacles or losing balance. Pt had received cortisone shots for pain management but it didnt help. Pt had 2 injections to increased joint fluid at her knees yesterday but she wasnt able to recall the name of it. Pt also stated she tends to feel dizzy or spinning while extending her head, and tends to lose balance if she is multitasking while walking. Pt's orthopedic MD from yesterday visit prescribed her to use 4WW for mobility for fall prevention. Prior Treatments and Tests antiimflammatory injections on B knees, fluid injections on B knees. Treatment Goals Patient/Caregiver Goals 1. To be able to walk her dog 2 miles a day without using AD 2. To strengthen her B knees 3. To be able to walk outside of the house on the uneven surface without AD 4. Not to have a fall again. Prior Functional Status Baseline Function- ADL's Independent Baseline Function- Mobility Independent Baseline Function- Gait pt was able to walk her dog 2 miles per day prior to last summer Baseline Function- Other Pt was able to amb in community without AD very often prior to last summer. Current Functional Impairments (Reported) Functional Limitations- Mobility/Gait Pt is mostly home bound at this point and is a home ambulator. Pt is afraid to walk outside of her house due to uneven ground. Pt still drives as needed. Pt also uses step to for stair negotiation with b rails due to knee pain and decreased balance. Personal Factors Other Personal Factors That May Effect Depression Therapy/Recovery B knee OA [place] memory loss possible vestibular impairment history of falls PT-OP-C Subjective Start: 06/10/18 16:43 Freq: Status: Active Protocol: Document 07/08/18 13:45 HH (Rec: 07/08/18 17:58 HH [email or web address]) OP-PT Subjective Patient Comments Patient Comments c/o same soreness R knee >L. PT-OP-D Balance Start: 06/10/18 16:43 Freq: Status: Active Protocol: Document 06/10/18 16:00 HH (Rec: 06/10/18 18:17 HH [email or web address]) OP-PT Balance Assessment Sitting Balance Static Sitting Balance Ability Normal Dynamic Sitting Balance Ability Normal Standing Balance Static Standing Balance Ability Good Dynamic Standing Balance Ability Fair Device Used none Standing Balance Comments Able to stand unsupported with EO/ EC. but excessive/ delayed sway with small perturbations Balance Tests Barrientos Balance Test Barrientos Balance Test Score 33 Barrientos Impairment Rating 40 to 59% Impaired (Score 23- 33) Single Limb Standing Single Limb- Right 5 Single Limb- Left 0 Delaney Fall Scale Copyright Permission Rhett JM, Rhett RM, Emre SJ. Development of a scale to identify the fall- prone patient. Can J Aging 1989;8;366-7. Shaye Delaney (2009). Preventing patient falls. (2nd ed). [place]: Akins. PT-OP-E Functional Tests Start: 06/10/18 16:43 Freq: Status: Active Protocol: Document 06/10/18 16:00 HH (Rec: 06/10/18 18:16 HH [email or web address]) Functional Tests 6 Minute Walk Test Distance 390 Comments pt stopped at 4 mins due to increased B knee pain Dynamic Gait Index (DGI) Score 12 DGI Impairment Rating 40 to <60% Impaired (Score 10- 14) PT-OP-G Mobility & Gait Start: 06/10/18 16:43 Freq: Status: Active Protocol: Document 06/10/18 16:00 HH (Rec: 06/11/18 13:32 HH [email or web address]) OP Gait Assessment Gait Gait Assistance Required: Independent Distance (Feet) 300 Able to Maintain Weight Bearing Status Yes During Gait Assistive Devices Assistive Device None Gait Deviations General Gait Pattern Antalgic Decreased Stride Length Decreased Feet Clearance Factors Limiting Gait Function Factors Limiting Gait Function Decreased Activity Tolerance Decreased Strength Limited Range of Motion Pain Poor Balance Comments Gait Comments Pt tends to stop for talking / multitasking during ambulation She also has uneven stride length with antaglic gait more on the R side due to B knee pain R>L. pt tends to take increased time and appear unsteady for turns. She often shows signs of LOB/ mis-stepping during amb with speed changes. PT-OP-J Posture/Palpation/Skin Start: 06/10/18 16:43 Freq: Status: Active Protocol: Document 06/10/18 16:00 HH (Rec: 06/11/18 13:32 [email or web address]) Posture Evaluation Position Standing Head/C-Spine Posture Forward Head Shoulder Posture (L) Rounded (R) Rounded Knee Posture (L) Genu Valgus (R) Genu Valgus (R) Excess Flexion Skin Assessment Other Assessments Skin Assessment Comments varicose veins on R knee laterally and medially PT-OP-M Strength Start: 06/10/18 16:43 Freq: Status: Active Protocol: Document 06/10/18 16:00 HH (Rec: 06/11/18 13:32 [email or web address]) Hip Strength Hip Manual Muscle Testing Right Flexion (L2) 4+ Good+ Extension (S1) 4+ Good+ Abduction 4 Good Adduction 4+ Good+ Left Flexion (L2) 4+ Good+ Extension (S1) 4+ Good+ Abduction 4 Good Adduction 4+ Good+ Knee Strength Knee Manual Muscle Testing Right Flexion (S2) 3+ Fair+ Extension (L3) 3 Fair Comments pain during resisted extension / flexion Left Flexion (S2) 3+ Fair+ Extension (L3) 3 Fair Comments pain during resisted extension / flexion PT-OP-Q Treatments Start: 06/10/18 16:43 Freq: Status: Active Protocol: Document 07/08/18 13:45 HH (Rec: 07/08/18 17:58 HH [email or web address]) Cardio Equipment Recumbent Bicycle Duration (Minutes) 8 Resistance 5 Seat Position 5 Gym Equipment Shuttle Recovery B squat 2 Details feet at bottom of platform Resistance 50-100# Shuttle Recovery Platform Stable Reps/Time facilitate knee flexion B squat Details heel push off Resistance 50- 100# Shuttle Recovery Platform Stable Reps/Time cues on slow squat Therapeutic Exercises Sitting Exercises lateral lunges Side bilateral Equipment Used wall bar Reps/Minutes 5 mins Comments lateral lunge with wall bar lunge to wall Side bilateral Equipment Used 5 inch step and wall bar Reps/Minutes 10 mins Comments slow lunges Manual Therapy Treatment Soft Tissue Mobilization B knee Mobilization Type Cross-Friction Strumming Sustained Pressure Trigger Point Release Intensity/Depth Moderate Body Position Prone Comments distal to proximal direction. PT-OP-R Modalities Start: 06/10/18 16:43 Freq: Status: Active Protocol: Document 06/12/18 15:11 SA (Rec: 06/12/18 15:28 SA [email or web address]) Hot Pack/Cold Pack Treatment Cold Pack Location B knees Patient Position Supine Treatment Duration (minutes) 10 Patient Tolerance Good PT-OP-T Assessment and Plan Start: 06/10/18 16:43 Freq: Status: Active Protocol: Document 07/08/18 13:45 HH (Rec: 07/08/18 17:58 HH [email or web address]) Physical Therapy Assessment Assessment Summary Assessment Focused on single leg balance and strengthening today. Pt has improved end ranged knee strength from doing leg press with different feet position. Demonstration of floor recovery has shown to pt with pillow under knees. will attempt floor recovery and stair training next session. Physical Therapy Plan Next Visit Focus/Plan Next Note Type Progress Note Next Visit Plan will attempt floor recovery and stair training next session. progress LE stength and dynamic balance
--- NOTE | 2018-07-10 14:13 | PT.OTN ---
Current Diagnoses Repeated falls (07/10/18) Physical Therapy Treatment Note PT-OP-A Visit Information Start: 06/10/18 16:43 Freq: Status: Active Protocol: Document 07/10/18 14:00 SA (Rec: 07/10/18 14:13 SA [email or web address]) Out-Patient Physical Therapy Visit Information Visit Information Visit Type Treatment Note Visit Start Time 13:00 Visit Stop Time 13:46 Total Visit Minutes 46 Visit Number 8 Number of COOLING ROOM ATTENDANT Visits 1 PT-OP-B Current Condition Start: 06/10/18 16:43 Freq: Status: Active Protocol: Document 06/10/18 16:00 HH (Rec: 06/10/18 18:16 HH [email or web address]) Current Condition History of Current Condition Onset Date couple years ago Current Complaints frequent falls, Chronic B knee pain History of Current Condition Pt c/o onset of falling since couple years ago. Pt reports it is primarily due to her chronic low back pain and chronic B knee pain. Pt had multiple falls over the past few years. She had 5 falls within the past 5 months and she explained it has been getting worse primarily due to a fall on 08/02/17 who landed on her B knees. Pt started experiencing increased knee pain, weakness since then that this accident caused ongoing episodes of knee buckling. This increases her frequency of falls tremendously by tripping over obstacles or losing balance. Pt had received cortisone shots for pain management but it didnt help. Pt had 2 injections to increased joint fluid at her knees yesterday but she wasnt able to recall the name of it. Pt also stated she tends to feel dizzy or spinning while extending her head, and tends to lose balance if she is multitasking while walking. Pt's orthopedic MD from yesterday visit prescribed her to use 4WW for mobility for fall prevention. Prior Treatments and Tests antiimflammatory injections on B knees, fluid injections on B knees. Treatment Goals Patient/Caregiver Goals 1. To be able to walk her dog 2 miles a day without using AD 2. To strengthen her B knees 3. To be able to walk outside of the house on the uneven surface without AD 4. Not to have a fall again. Prior Functional Status Baseline Function- ADL's Independent Baseline Function- Mobility Independent Baseline Function- Gait pt was able to walk her dog 2 miles per day prior to last summer Baseline Function- Other Pt was able to amb in community without AD very often prior to last summer. Current Functional Impairments (Reported) Functional Limitations- Mobility/Gait Pt is mostly home bound at this point and is a home ambulator. Pt is afraid to walk outside of her house due to uneven ground. Pt still drives as needed. Pt also uses step to for stair negotiation with b rails due to knee pain and decreased balance. Personal Factors Other Personal Factors That May Effect Depression Therapy/Recovery B knee OA [place] memory loss possible vestibular impairment history of falls PT-OP-C Subjective Start: 06/10/18 16:43 Freq: Status: Active Protocol: Document 07/10/18 14:00 SA (Rec: 07/10/18 14:13 SA [email or web address]) OP-PT Subjective Patient Comments Patient Comments Pt with c/o B knee soreness/ pain R>L. Agreeable to attempt fall recovery today. PT-OP-D Balance Start: 06/10/18 16:43 Freq: Status: Active Protocol: Document 06/10/18 16:00 HH (Rec: 06/10/18 18:17 HH [email or web address]) OP-PT Balance Assessment Sitting Balance Static Sitting Balance Ability Normal Dynamic Sitting Balance Ability Normal Standing Balance Static Standing Balance Ability Good Dynamic Standing Balance Ability Fair Device Used none Standing Balance Comments Able to stand unsupported with EO/ EC. but excessive/ delayed sway with small perturbations Balance Tests Barrientos Balance Test Barrientos Balance Test Score 33 Barrientos Impairment Rating 40 to 59% Impaired (Score 23- 33) Single Limb Standing Single Limb- Right 5 Single Limb- Left 0 Delaney Fall Scale Copyright Permission Rhett JM, Rhett RM, Emre SJ. Development of a scale to identify the fall- prone patient. Can J Aging 1989;8;366-7. Shaye Delaney (2009). Preventing patient falls. (2nd ed). [place]: Akins. PT-OP-E Functional Tests Start: 06/10/18 16:43 Freq: Status: Active Protocol: Document 06/10/18 16:00 HH (Rec: 06/10/18 18:16 HH [email or web address]) Functional Tests 6 Minute Walk Test Distance 390 Comments pt stopped at 4 mins due to increased B knee pain Dynamic Gait Index (DGI) Score 12 DGI Impairment Rating 40 to <60% Impaired (Score 10- 14) PT-OP-G Mobility & Gait Start: 04/17/19 16:43 Freq: Status: Active Protocol: Document 06/10/18 16:00 HH (Rec: 06/11/18 13:32 [email or web address]) OP Gait Assessment Gait Gait Assistance Required: Independent Distance (Feet) 300 Able to Maintain Weight Bearing Status Yes During Gait Assistive Devices Assistive Device None Gait Deviations General Gait Pattern Antalgic Decreased Stride Length Decreased Feet Clearance Factors Limiting Gait Function Factors Limiting Gait Function Decreased Activity Tolerance Decreased Strength Limited Range of Motion Pain Poor Balance Comments Gait Comments Pt tends to stop for talking / multitasking during ambulation She also has uneven stride length with antaglic gait more on the R side due to B knee pain R>L. pt tends to take increased time and appear unsteady for turns. She often shows signs of LOB/ mis-stepping during amb with speed changes. PT-OP-J Posture/Palpation/Skin Start: 06/10/18 16:43 Freq: Status: Active Protocol: Document 06/10/18 16:00 HH (Rec: 06/11/18 13:32 [email or web address]) Posture Evaluation Position Standing Head/C-Spine Posture Forward Head Shoulder Posture (L) Rounded (R) Rounded Knee Posture (L) Genu Valgus (R) Genu Valgus (R) Excess Flexion Skin Assessment Other Assessments Skin Assessment Comments varicose veins on R knee laterally and medially PT-OP-M Strength Start: 06/10/18 16:43 Freq: Status: Active Protocol: Document 06/10/18 16:00 HH (Rec: 06/11/18 13:32 [email or web address]) Hip Strength Hip Manual Muscle Testing Right Flexion (L2) 4+ Good+ Extension (S1) 4+ Good+ Abduction 4 Good Adduction 4+ Good+ Left Flexion (L2) 4+ Good+ Extension (S1) 4+ Good+ Abduction 4 Good Adduction 4+ Good+ Knee Strength Knee Manual Muscle Testing Right Flexion (S2) 3+ Fair+ Extension (L3) 3 Fair Comments pain during resisted extension / flexion Left Flexion (S2) 3+ Fair+ Extension (L3) 3 Fair Comments pain during resisted extension / flexion PT-OP-Q Treatments Start: 06/10/18 16:43 Freq: Status: Active Protocol: Document 07/10/18 14:00 SA (Rec: 07/10/18 14:13 SA [email or web address]) Cardio Equipment Recumbent Elliptical (Biodex) Duration (Minutes) 7 Resistance 4 Gym Equipment Shuttle Recovery B squat 2 Details feet at bottom of platform Resistance 50-100# Reps/Time facilitate knee flexion B squat Details heel push off Shuttle Recovery Platform Stable Reps/Time cues on slow squat Therapeutic Exercises Supine Exercises Gluteal sets Side bilateral Reps/Minutes 5 x 10 Comments in standing Sitting Exercises lateral lunges Side bilateral Equipment Used wall bar Reps/Minutes 5 mins Comments lateral lunge with wall bar lunge to wall Side bilateral Equipment Used 5 inch step and wall bar Reps/Minutes 5 mins Comments slow lunges Therapeutic Activity Therapeutic Activity Stair training Name stair training Reps/Minutes 4x Comments Cues for leading up with stronger leg, glut contraction and TKE. Fall Recovery Name fall recovery on mat Comments Education/training for transition from supine position to standing with use of chair for support, pt able to complete with CGA-Min A and Mod cues with most difficulty with movement from half kneel to full stand. Needs stable object for UEs to pull up with .Completed 2x. PT-OP-R Modalities Start: 06/10/18 16:43 Freq: Status: Active Protocol: Document 06/12/18 15:11 SA (Rec: 06/12/18 15:28 SA [email or web address]) Hot Pack/Cold Pack Treatment Cold Pack Location B knees Patient Position Supine Treatment Duration (minutes) 10 Patient Tolerance Good PT-OP-T Assessment and Plan Start: 06/10/18 16:43 Freq: Status: Active Protocol: Document 07/10/18 14:00 SA (Rec: 07/10/18 14:13 [email or web address]) Physical Therapy Assessment Assessment Summary Assessment Focused on functional tasks today of stair climb and fall recovery, pt receptive to education and felt more confident with fall recovery after 2 successful transitions from supine to standing. Physical Therapy Plan Next Visit Focus/Plan Next Note Type Treatment Note Next Visit Plan Cont to progress LE strengthening and balance program, re-visit fall recovery and stair training as needed.
--- NOTE | 2018-07-13 13:28 | PT.OPDS ---
Current Diagnoses Repeated falls (07/10/18) Provider Visit Care Team Role Provider Type Serena Dye MD Attending Provider Non-Staff Primary Care Provider Specialty: Family Practice Address: [address] [place] [address], [place], [address] Email: Visit Number Visit Number 8 Discharge Summary PT-OP-B Current Condition Start: 06/10/18 16:43 Freq: Status: Active Protocol: Document 06/10/18 16:00 (Rec: 06/10/18 18:16 [email or web address]) Current Condition History of Current Condition Onset Date couple years ago Current Complaints frequent falls, Chronic B knee pain History of Current Condition Pt c/o onset of falling since couple years ago. Pt reports it is primarily due to her chronic low back pain and chronic B knee pain. Pt had multiple falls over the past few years. She had 5 falls within the past 5 months and she explained it has been getting worse primarily due to a fall on 08/02/17 who landed on her B knees. Pt started experiencing increased knee pain, weakness since then that this accident caused ongoing episodes of knee buckling. This increases her frequency of falls tremendously by tripping over obstacles or losing balance. Pt had received cortisone shots for pain management but it didnt help. Pt had 2 injections to increased joint fluid at her knees yesterday but she wasnt able to recall the name of it. Pt also stated she tends to feel dizzy or spinning while extending her head, and tends to lose balance if she is multitasking while walking. Pt's orthopedic MD from yesterday visit prescribed her to use 4WW for mobility for fall prevention. Prior Treatments and Tests antiimflammatory injections on B knees, fluid injections on B knees. Treatment Goals Patient/Caregiver Goals 1. To be able to walk her dog 2 miles a day without using AD 2. To strengthen her B knees 3. To be able to walk outside of the house on the uneven surface without AD 4. Not to have a fall again. Prior Functional Status Baseline Function- ADL's Independent Baseline Function- Mobility Independent Baseline Function- Gait pt was able to walk her dog 2 miles per day prior to last summer Baseline Function- Other Pt was able to amb in community without AD very often prior to last summer. Current Functional Impairments (Reported) Functional Limitations- Mobility/Gait Pt is mostly home bound at this point and is a home ambulator. Pt is afraid to walk outside of her house due to uneven ground. Pt still drives as needed. Pt also uses step to for stair negotiation with b rails due to knee pain and decreased balance. Personal Factors Other Personal Factors That May Effect Depression Therapy/Recovery B knee OA [place] memory loss possible vestibular impairment history of falls PT-OP-C Subjective Start: 06/10/18 16:43 Freq: Status: Active Protocol: Document 07/10/18 14:00 SA (Rec: 07/10/18 14:13 SA [email or web address]) OP-PT Subjective Patient Comments Patient Comments Pt with c/o B knee soreness/ pain R>L. Agreeable to attempt fall recovery today. PT-OP-D Balance Start: 06/10/18 16:43 Freq: Status: Active Protocol: Document 06/10/18 16:00 HH (Rec: 06/10/18 18:17 HH [email or web address]) OP-PT Balance Assessment Sitting Balance Static Sitting Balance Ability Normal Dynamic Sitting Balance Ability Normal Standing Balance Static Standing Balance Ability Good Dynamic Standing Balance Ability Fair Device Used none Standing Balance Comments Able to stand unsupported with EO/ EC. but excessive/ delayed sway with small perturbations Balance Tests Barrientos Balance Test Barrientos Balance Test Score 33 Barrientos Impairment Rating 40 to 59% Impaired (Score 23- 33) Single Limb Standing Single Limb- Right 5 Single Limb- Left 0 Delaney Fall Scale Copyright Permission Rhett FREIRE, Rhett RM, Emre SJ. Development of a scale to identify the fall- prone patient. Can J Aging 1989;8;366-7. Shaye Delaney (2009). Preventing patient falls. (2nd ed). [place]: Akins. PT-OP-E Functional Tests Start: 06/10/18 16:43 Freq: Status: Active Protocol: Document 06/10/18 16:00 HH (Rec: 06/10/18 18:16 HH [email or web address]) Functional Tests 6 Minute Walk Test Distance 390 Comments pt stopped at 4 mins due to increased B knee pain Dynamic Gait Index (DGI) Score 12 DGI Impairment Rating 40 to <60% Impaired (Score 10- 14) PT-OP-G Mobility & Gait Start: 06/10/18 16:43 Freq: Status: Active Protocol: Document 06/10/18 16:00 HH (Rec: 06/11/18 13:32 [email or web address]) OP Gait Assessment Gait Gait Assistance Required: Independent Distance (Feet) 300 Able to Maintain Weight Bearing Status Yes During Gait Assistive Devices Assistive Device None Gait Deviations General Gait Pattern Antalgic Decreased Stride Length Decreased Feet Clearance Factors Limiting Gait Function Factors Limiting Gait Function Decreased Activity Tolerance Decreased Strength Limited Range of Motion Pain Poor Balance Comments Gait Comments Pt tends to stop for talking / multitasking during ambulation She also has uneven stride length with antaglic gait more on the R side due to B knee pain R>L. pt tends to take increased time and appear unsteady for turns. She often shows signs of LOB/ mis-stepping during amb with speed changes. PT-OP-J Posture/Palpation/Skin Start: 06/10/18 16:43 Freq: Status: Active Protocol: Document 06/10/18 16:00 (Rec: 06/11/18 13:32 [email or web address]) Posture Evaluation Position Standing Head/C-Spine Posture Forward Head Shoulder Posture (L) Rounded (R) Rounded Knee Posture (L) Genu Valgus (R) Genu Valgus (R) Excess Flexion Skin Assessment Other Assessments Skin Assessment Comments varicose veins on R knee laterally and medially PT-OP-M Strength Start: 06/10/18 16:43 Freq: Status: Active Protocol: Document 06/10/18 16:00 HH (Rec: 06/11/18 13:32 [email or web address]) Hip Strength Hip Manual Muscle Testing Right Flexion (L2) 4+ Good+ Extension (S1) 4+ Good+ Abduction 4 Good Adduction 4+ Good+ Left Flexion (L2) 4+ Good+ Extension (S1) 4+ Good+ Abduction 4 Good Adduction 4+ Good+ Knee Strength Knee Manual Muscle Testing Right Flexion (S2) 3+ Fair+ Extension (L3) 3 Fair Comments pain during resisted extension / flexion Left Flexion (S2) 3+ Fair+ Extension (L3) 3 Fair Comments pain during resisted extension / flexion PT-OP-T Assessment and Plan Start: 06/10/18 16:43 Freq: Status: Active Protocol: Document 07/13/18 13:26 (Rec: 07/13/18 13:28 [email or web address]) Physical Therapy Plan Discharge Physical Therapy Discharge Reasons Patient Request Discharge Comments Pt requested to be d/c from PT via phone call today due to continous B knee pain with increased swelling. Pt states her injection has not been helping her at all.
== END 2018-07-13 17:37 | disposition home or self-care (01) ==
LOC: PHYS 13:00
PROVIDERS: PCP Family Medicine; Visit Provider Family Medicine
DX: R29.6 Repeated falls (principal)
CPT/HCPCS: 97110; 97112; 97140; 97163; 97530

== ENCOUNTER → 2019-03-02 09:07 | Outpatient (CLI) | payer MEDICARE, OTHER, SELFPAY ==
[2019-03-02 09:57] LABS: Add Manual Diff / Slide Review NO; Basophils Absolute Auto 100 /uL (0-100); Basophils Percent Auto 0.9 % (0-2); Eosinophils Absolute Auto 100 /uL (0-450); Eosinophils Percent Auto 0.9 % (2-4); Hematocrit 35.8 % (36-46); Hemoglobin 11.9 g/dL (12.0-16.0); Lymphocytes Absolute Auto 1700 /uL (1100-4500); Lymphocytes Percent Auto 21.8 % (25-40); Mean Corpuscular HGB Conc 33.3 % (30-36); Monocytes Absolute Auto 700 /uL (0-900); Monocytes Percent Auto 9.2 % (3-14); Neutrophils Absolute Auto 5100 /uL (1500-7000); Neutrophils Percent Auto 67.2 % (50-75); Platelet Count 498 X10^3/uL (150-400); Red Blood Cell Count 4.26 X10^6/uL (4.0-5.2); Red Cell Distribution Width 14.4 % (11.6-14.8); White Blood Cell Count 7.6 X10^3/uL (4.5-11.0)
[2019-03-02 10:03] LABS: Alanine Aminotransferase 17 IU/L (<35); Albumin 4.2 g/dL (3.5-5.0); Albumin Globulin Ratio 1.6 (1.0-2.8); Alkaline Phosphatase 68 U/L (38-126); Aspartate Aminotransferase 26 IU/L (14-36); BUN Creatinine Ratio 21.3 (6-22); Bilirubin Total 0.4 mg/dL (0.2-1.3); Blood Urea Nitrogen 17 mg/dL (7-17); Calcium 9.3 mg/dL (8.4-10.2); Carbon Dioxide 30 mmol/L (22-32); Chloride 102 mmol/L (98-107); Cholesterol 169 mg/dL (140-199); Estimated Glomerular Filt Rate > 60.0 mL/min (>60); Globulin 2.7 g/dL (1.7-4.1); Glucose 99 mg/dL (80-110); HDL Cholesterol 70 mg/dL (40-60); HEMOLYSIS < 15 (0-50); LDL Cholesterol Calculated 88 mg/dL (<100); Potassium 4.4 mmol/L (3.4-5.1); Sodium 138 mmol/L (137-145); Total Protein 6.9 g/dL (6.3-8.2); Triglycerides 54 mg/dL (35-150)
[2019-03-02 11:13] LABS: TSH w/ Reflex to FT4 0.54 uIU/mL (0.47-4.68)
== END ==
PROVIDERS: PCP Family Medicine; Visit Provider Physician Assistant
DX: E78.5 Hyperlipidemia, unspecified (principal); E03.9 Hypothyroidism, unspecified
CPT/HCPCS: 36415; 80053; 80061; 84443; 85025

== ENCOUNTER → 2019-08-18 09:11 | Outpatient (CLI) | payer MEDICARE, OTHER, SELFPAY ==
[2019-08-18 10:11] LABS: Add Manual Diff / Slide Review NO; Basophils Absolute Auto 100 /uL (0-100); Basophils Percent Auto 0.8 % (0-2); Eosinophils Absolute Auto 100 /uL (0-450); Eosinophils Percent Auto 1.9 % (2-4); Hematocrit 32.1 % (36-46); Hemoglobin 10.6 g/dL (12.0-16.0); Lymphocytes Absolute Auto 1700 /uL (1100-4500); Lymphocytes Percent Auto 26.8 % (25-40); Mean Corpuscular HGB Conc 33.1 % (30-36); Mean Corpuscular Hemoglobin 25.8 PG (26-34); Monocytes Absolute Auto 800 /uL (0-900); Monocytes Percent Auto 12.8 % (3-14); Neutrophils Absolute Auto 3800 /uL (1500-7000); Neutrophils Percent Auto 57.7 % (50-75); Platelet Count 464 X10^3/uL (150-400); Red Blood Cell Count 4.12 X10^6/uL (4.0-5.2); Red Cell Distribution Width 15.9 % (11.6-14.8); White Blood Cell Count 6.5 X10^3/uL (4.5-11.0)
[2019-08-18 10:37] LABS: Alanine Aminotransferase 14 IU/L (<35); Albumin 3.9 g/dL (3.5-5.0); Albumin Globulin Ratio 1.5 (1.0-2.8); Alkaline Phosphatase 70 U/L (38-126); Aspartate Aminotransferase 24 IU/L (14-36); BUN Creatinine Ratio 22.4 (6-22); Bilirubin Total 0.4 mg/dL (0.2-1.3); Blood Urea Nitrogen 17 mg/dL (7-17); Calcium 9.2 mg/dL (8.4-10.2); Carbon Dioxide 30 mmol/L (22-32); Chloride 98 mmol/L (98-107); Cholesterol 182 mg/dL (140-199); Estimated Glomerular Filt Rate > 60.0 mL/min (>60); Globulin 2.6 g/dL (1.7-4.1); Glucose 96 mg/dL (80-110); HDL Cholesterol 81 mg/dL (40-60); HEMOLYSIS < 15 (0-50); LDL Cholesterol Calculated 90 mg/dL (<100); Potassium 4.9 mmol/L (3.4-5.1); Sodium 133 mmol/L (137-145); Total Protein 6.5 g/dL (6.3-8.2); Triglycerides 54 mg/dL (35-150)
[2019-08-18 10:44] LABS: NT-proBNP (BNP-Adult 18+) 340 pg/mL (<450)
[2019-08-18 11:03] LABS: C-Reactive Protein Quant < 0.5 mg/dL (<1.0)
[2019-08-18 11:15] LABS: HEMOLYSIS < 15 (0-50); Iron 58 ug/dL (37-170)
[2019-08-18 11:25] LABS: Percent Iron Saturation 13 % (15-50); Total Iron Binding Capacity 430 ug/dL (265-497); Transferrin 349 mg/dL (206-381)
[2019-08-18 11:28] LABS: Ferritin 9 ng/mL (11-264)
[2019-08-18 11:46] LABS: TSH w/ Reflex to FT4 0.58 uIU/mL (0.47-4.68)
[2019-08-18 13:31] LABS: Erythrocyte Sedimentation Rate 8 MM/HR (0-20)
== END ==
PROVIDERS: PCP Physician Assistant; Referring Provider Physician Assistant; Visit Provider Physician Assistant
DX: M54.5 Low back pain (principal); K59.1 Functional diarrhea; R06.02 Shortness of breath; E03.9 Hypothyroidism, unspecified; G89.4 Chronic pain syndrome; D50.8 Other iron deficiency anemias; E78.5 Hyperlipidemia, unspecified
CPT/HCPCS: 36415; 80053; 80061; 82728; 83540; 83550; 83880; 84443; 85025; 85651; 86140

== ENCOUNTER → 2019-08-23 14:29 | Outpatient (CLI) | payer MEDICARE, OTHER, SELFPAY ==
--- NOTE | 2019-08-23 14:48 | DI.ECHO.S_ITS ---
Echocardiogram Report + + :Name: KIM OVERTON Study Date: 08/23/2019 Height: 64 in : :[facility] Weight: 154 lb : : Gender: Female BSA: 1.8 m2 : :: 1940 Age: 79 yrs BP: 170/74 mmHg: :Reason For Study: SOB, EDEMA : : Performed By: Shireen Wheat : :Referring: NII CRAMER : + + Interpretation Summary The ejection fraction is estimated to be 60-65%. There is trace tricuspid regurgitation. The right ventricular systolic pressure is estimated to be at least 35 mmHg based on an estimated right atrial pressure of 3 mm Hg. Procedure: A two-dimensional transthoracic echocardiogram with color flow and Doppler was performed. The study quality was technically adequate. There is no prior echocardiogram noted for this patient. The patient was in normal sinus rhythm during the exam. The patient had occasional PVCs during the exam. Left Ventricle: The left ventricle is normal in size, wall thickness, and systolic function without any focal wall motion abnormalities. There is no ventricular septal defect visualized. The ejection fraction is estimated to be 60-65%. Diastolic parameters suggest probable normal left ventricular diastolic function and normal filling pressures. Right Ventricle: The right ventricle is normal in size and function. Atria: The left atrium is mildly dilated. Right atrial size is normal. There is no Doppler evidence for an interatrial shunt. Mitral Valve: The mitral valve is normal in structure and function. There is trace mitral regurgitation. Aortic Valve: The aortic valve is trileaflet. The aortic valve opens well. No aortic regurgitation is present. Tricuspid Valve: The tricuspid valve is normal in structure and function. There is trace tricuspid regurgitation. The right ventricular systolic pressure is estimated to be at least 35 mmHg based on an estimated right atrial pressure of 3 mm Hg. Pulmonic Valve: The pulmonic valve is not well seen, but is grossly normal. There is a trace or physiologic amount of pulmonic regurgitation. Great Vessels: The aortic root is normal size. The ascending aorta is normal in size. The aortic arch is normal in size. The IVC is of normal diameter and collapses greater than 50% with a sniff. This suggests a low right atrial pressure of 3 mm Hg. Pericardium/ Pleura There is no pericardial effusion. MMode/2D Measurements & Calculations LVIDd: 4.6 cm LVOT diam: 2.0 cm LVIDs: 2.7 cm Ao root diam: 2.8 cm FS: 42.4 % Aortic Jxn: 2.4 cm EPSS: 0.18 cm asc Aorta Diam: 2.8 cm IVSd: 0.65 cm Ao Arch Diam (Prox Trans): 2.6 cm LVPWd: 0.93 cm LV perez. diameter/BSA (cm/m^2): 2.7 LV sys. diameter/BSA (cm/m^2): 1.5 LA A2 area: 20.3 cm2 RA long axis: 5.1 cm LA A4 area: 20.8 cm2 RA area: 15.6 cm2 LA length (vol): 5.2 cm RA vol: 40.3 ml LA vol: 69.8 ml RA : 23.0 ml/m2 LA vol index: 39.9 ml/m2 IVC diam: 1.7 cm RVD1 (basal): 3.4 cm RVD2 (mid): 2.1 cm TAPSE: 3.3 cm Doppler Measurements & Calculations Ao V2 max: 144.9 cm/sec LVOT Max Sixto: 120.0 cm/sec Ao V2 mean: 102.6 cm/sec LV V1 max P.8 mmHg Ao max P.4 mmHg LV V1 VTI: 29.0 cm Ao mean P.8 mmHg JENNIFER(I,D): 2.4 cm2 Ao V2 VTI: 37.2 cm JENNIFER(V,D): 2.5 cm2 sev ratio: 0.78 JENNIFER indexed to BSA (cm^2/m^2): 1.4 MV E max sixto: 92.0 cm/sec TR max sixto: 282.1 cm/sec MV A max sixto: 103.2 cm/sec TR max P.8 mmHg MV E/A: 0.89 PA V2 max: 77.0 cm/sec Med Peak E' Sixto: 7.3 cm/sec PA V2 mean: 56.8 cm/sec E/E' med: 12.6 PA mean P.4 mmHg Lat Peak E' Sixto: 8.7 cm/sec PA Accel Time: 0.12 sec E/E' lat: 10.5 E/e' average: 11.6 MV dec time: 0.26 sec MV P1/2t: 77.1 msec MV P1/2t max sixto: 92.2 cm/sec SV(LVOT): 88.9 ml MVA(P1/2t): 2.9 cm2 Reading Physician:12:01 PM
== END ==
PROVIDERS: PCP Physician Assistant; Referring Provider Physician Assistant; Visit Provider Physician Assistant
DX: R06.02 Shortness of breath (principal); R60.9 Edema, unspecified
CPT/HCPCS: 93306

== ENCOUNTER → 2019-09-07 11:01 | Outpatient (CLI) | payer MEDICARE, OTHER, SELFPAY ==
--- NOTE | 2019-09-07 | DI.MRI.S_ITS ---
PROCEDURE: MR LUMBAR SPINE WO CON INDICATIONS: Chronic pain syndrome TECHNIQUE: Noncontrast sagittal T1 spin echo and T2 fast echo, sagittal STIR, axial T1 and T2 fast spin echo through the lumbar spine. In cases with scoliosis, additional coronal T2 fast spin echo may be performed. COMPARISON: [facility], CR, XR LUMBAR SPINE 2-3V, 09/07/2019, 11:40. FINDINGS: Image quality: Excellent. Alignment and Curvature: There is mild L2-L3 and L3-L4 retrolisthesis. There is trace L1-L2 retrolisthesis. There is approximately 16? of convex left lower lumbar spine scoliosis. Bone Marrow: Reactive endplate changes noted adjacent to the L1-L2, L2-L3, L3-L4 and L4-L5 discs. No acute vertebral body compression fractures. Spinal Cord: Conus medullaris terminates at the L1 level. Visualized cord demonstrates normal signal and size. Paraspinous Soft Tissues: No paravertebral masses. L1-L2: Loss of disc signal and height. Moderate, diffuse disc bulge and mild bilateral facet hypertrophy. Mild narrowing of the central canal. Mild right and moderate left neural foraminal narrowing. No neural compression. L2-L3: Loss of disc signal and height. Moderate, diffuse disc bulge. Cqlg-qo-pzynrdir bilateral facet hypertrophy. Mild to moderate narrowing of the central canal. Moderate bilateral neural foraminal narrowing. No neural compression. L3-L4: Loss of disc signal and height. Mild, diffuse disc bulge and cmav-da-nrvqgnyb bilateral facet hypertrophy. Mild to moderate narrowing of the central canal. Severe right and mild left neural foraminal narrowing with compression of the exiting right L3 nerve root. L4-L5: Loss of disc signal and height. Mild, diffuse disc bulge. Moderate bilateral facet hypertrophy. Mild to moderate narrowing of the central canal. Dwte-xk-zghhabbw right and moderate left neural foraminal narrowing. No neural compression. L5-S1: Loss of disc signal and slight loss of disc height. Moderate, diffuse disc bulge. Moderate bilateral facet hypertrophy. Mild narrowing of the central canal. Moderate right and severe left neural foraminal narrowing with compression of the exiting left L5 nerve root. IMPRESSION: 1. Convex left scoliosis. 2. Grade 1 L1-L2, L2-L3 and L3-L4 degenerative spondylolisthesis. 3. Multilevel degenerative disc disease. 4. Multilevel facet arthropathy. 5. No significant central canal narrowing. 6. Severe right L3-L4 neural foraminal narrowing with compression of the exiting right L3 nerve root. Severe left L5-S1 neural foraminal narrowing with compression of the exiting left L5 nerve root. Dictated by: Estefania Piedra MD, PhD on 09/07/2019 at 14:19 Approved by: Estefania Piedra MD, PhD on 09/07/2019 at 14:30
--- NOTE | 2019-09-07 | DI.RAD.S_ITS ---
PROCEDURE: XR LUMBAR SPINE 2-3V INDICATIONS: LOW BACK PAIN/SI JOINT DYSFUNCTION/RADICULOPATHY TECHNIQUE: 3 views of the lumbar spine were acquired. COMPARISON: None. FINDINGS: Bones: 5 prh-tom-wakdxfz vertebrae are present. Convex right curvature of the thoracolumbar spine is noted. There is mild L1-L2, L2-L3 and L3-L4 retrolisthesis. No vertebral body compression fractures. No suspicious bony lesions. Severe L1-L2, L2-L3 and L3-L4 degenerative disc disease. Moderate L4-L5 and L5-S1 degenerative disc disease. Moderate L4-L5 and L5-S1 facet arthropathy. Soft tissues: Overlying bowel gas pattern is normal. No suspicious soft tissue calcifications. IMPRESSION: 1. Multilevel degenerative disease. 2. Multilevel facet arthropathy. 3. No fracture. No acute osseous lesion. If symptoms and/or clinical suspicion for pathology persists, evaluation with MRI may be helpful for further assessment. Dictated by: Estefania Piedra MD, PhD on 09/07/2019 at 17:58 Approved by: Estefania Piedra MD, PhD on 09/07/2019 at 18:00
--- NOTE | 2019-09-07 11:15 | DI.RAD.S_ITS ---
PROCEDURE: XR SACROILIAC JOINT MIN 3V INDICATIONS: SI JOINT DYSFUNCTION TECHNIQUE: 3 views of the sacroiliac joints were acquired. COMPARISON: None. FINDINGS: Bones: No bony erosions or ankylosis. Mild osteoarthritic degenerative changes noted in the inferior margins of the SI joints bilaterally. No suspicious bony lesions. No fractures. Soft tissues: Overlying bowel gas pattern is normal. No suspicious soft tissue densities. IMPRESSION: 1. Mild bilateral sacroiliac joint osteoarthritis. 2. No erosive changes or ankylosis. Dictated by: Estefania Piedra MD, PhD on 09/07/2019 at 17:58 Approved by: Estefania Piedra MD, PhD on 09/07/2019 at 17:58
== END ==
PROVIDERS: PCP Physician Assistant; Referring Provider Physician Assistant; Visit Provider Physician Assistant
DX: M51.16 Intervertebral disc disorders with radiculopathy, lumbar region (principal); M51.17 Intervertebral disc disorders with radiculopathy, lumbosacral region; M47.26 Other spondylosis with radiculopathy, lumbar region; M47.27 Other spondylosis with radiculopathy, lumbosacral region; M48.061 Spinal stenosis, lumbar region without neurogenic claudication; M48.07 Spinal stenosis, lumbosacral region; M54.5 Low back pain; M53.3 Sacrococcygeal disorders, not elsewhere classified; M43.16 Spondylolisthesis, lumbar region; M41.86 Other forms of scoliosis, lumbar region; G89.4 Chronic pain syndrome
CPT/HCPCS: 72100; 72148; 72202

== ENCOUNTER → 2020-01-24 15:13 | Outpatient (ROUT) | payer MEDICARE, OTHER, SELFPAY ==
[2020-01-24 15:38] LABS: Add Manual Diff / Slide Review NO; Basophils Absolute Auto 100 /uL (0-100); Basophils Percent Auto 0.7 % (0-2); Eosinophils Absolute Auto 100 /uL (0-450); Eosinophils Percent Auto 0.7 % (2-4); Hematocrit 33.5 % (36-46); Hemoglobin 10.8 g/dL (12.0-16.0); Lymphocytes Absolute Auto 2000 /uL (1100-4500); Lymphocytes Percent Auto 18.8 % (25-40); Mean Corpuscular HGB Conc 32.2 % (30-36); Mean Corpuscular Hemoglobin 25.3 PG (26-34); Mean Corpuscular Volume 78.6 fL (80-100); Monocytes Absolute Auto 1200 /uL (0-900); Monocytes Percent Auto 11.8 % (3-14); Neutrophils Absolute Auto 7100 /uL (1500-7000); Platelet Count 470 X10^3/uL (150-400); Red Blood Cell Count 4.26 X10^6/uL (4.0-5.2); Red Cell Distribution Width 16.5 % (11.6-14.8); White Blood Cell Count 10.5 X10^3/uL (4.5-11.0)
[2020-01-24 15:41] LABS: HEMOLYSIS < 15 (0-50); Iron 12 ug/dL (37-170)
[2020-01-24 15:45] LABS: Alanine Aminotransferase 19 IU/L (<35); Albumin Globulin Ratio 1.4 (1.0-2.8); Alkaline Phosphatase 81 U/L (38-126); Aspartate Aminotransferase 24 IU/L (14-36); BUN Creatinine Ratio 19.4 (6-22); Bilirubin Total 0.5 mg/dL (0.2-1.3); Blood Urea Nitrogen 12 mg/dL (7-17); C-Reactive Protein Quant 5.3 mg/dL (<1.0); Calcium 9.2 mg/dL (8.4-10.2); Carbon Dioxide 33 mmol/L (22-32); Chloride 99 mmol/L (98-107); Estimated Glomerular Filt Rate > 60.0 mL/min (>60); Globulin 2.8 g/dL (1.7-4.1); Glucose 153 mg/dL (80-110); HEMOLYSIS < 15 (0-50); Potassium 4.3 mmol/L (3.4-5.1); Sodium 136 mmol/L (137-145); Total Protein 6.8 g/dL (6.3-8.2)
[2020-01-24 15:53] LABS: Percent Iron Saturation 3 % (15-50); Total Iron Binding Capacity 383 ug/dL (265-497); Transferrin 302 mg/dL (206-381)
[2020-01-24 15:58] LABS: Erythrocyte Sedimentation Rate 30 MM/HR (0-20)
[2020-01-24 16:13] LABS: TSH w/ Reflex to FT4 3.85 uIU/mL (0.47-4.68)
[2020-01-24 23:18] LABS: Ferritin 19 ng/mL (11-264)
== END ==
PROVIDERS: PCP Physician Assistant; Visit Provider Physician Assistant
DX: K14.6 Glossodynia (principal); E03.9 Hypothyroidism, unspecified; R61 Generalized hyperhidrosis; R10.84 Generalized abdominal pain; E61.1 Iron deficiency
CPT/HCPCS: 80053; 82728; 83540; 83550; 84443; 85025; 85651; 86140

== ENCOUNTER → 2020-01-31 13:08 | Outpatient (CLI) | payer MEDICARE, OTHER, SELFPAY ==
--- NOTE | 2020-01-31 | DI.RAD.S_ITS ---
PROCEDURE: XR CHEST 2V INDICATIONS: ABNORMAL WEIGHT LOSS TECHNIQUE: 2 views of the chest were acquired. COMPARISON: [facility], CR, XR LUMBAR SPINE 2-3V, 09/07/2019, 11:40. FINDINGS: Surgical changes and devices: None. Lungs and pleura: Lungs are clear. No pleural effusions or pneumothorax. Mediastinum: Mediastinal contours are normal. Heart size is normal. Bones and chest wall: Lateral curvature of the spine and discogenic changes. IMPRESSION: No acute disease. Dictated by: Chilo Barrett M.D. on 01/31/2020 at 14:26 Approved by: Chilo Barrett M.D. on 01/31/2020 at 14:27
[2020-01-31 14:00] LABS: Add Manual Diff / Slide Review NO; Basophils Absolute Auto 100 /uL (0-100); Basophils Percent Auto 0.8 % (0-2); Eosinophils Absolute Auto 200 /uL (0-450); Hematocrit 32.7 % (36-46); Hemoglobin 10.3 g/dL (12.0-16.0); Lymphocytes Absolute Auto 2600 /uL (1100-4500); Lymphocytes Percent Auto 17.2 % (25-40); Mean Corpuscular HGB Conc 31.4 % (30-36); Mean Corpuscular Hemoglobin 24.4 PG (26-34); Mean Corpuscular Volume 77.8 fL (80-100); Monocytes Absolute Auto 1300 /uL (0-900); Monocytes Percent Auto 8.8 % (3-14); Neutrophils Absolute Auto 10900 /uL (1500-7000); Neutrophils Percent Auto 72.2 % (50-75); Platelet Count 582 X10^3/uL (150-400); Red Blood Cell Count 4.21 X10^6/uL (4.0-5.2); Red Cell Distribution Width 16.4 % (11.6-14.8); White Blood Cell Count 15.1 X10^3/uL (4.5-11.0)
[2020-01-31 14:36] LABS: HEMOLYSIS < 15 (0-50); Iron 23 ug/dL (37-170)
[2020-01-31 14:47] LABS: Percent Iron Saturation 6 % (15-50); Total Iron Binding Capacity 379 ug/dL (265-497); Transferrin 293 mg/dL (206-381)
[2020-01-31 15:12] LABS: Ferritin 9 ng/mL (11-264)
== END ==
PROVIDERS: PCP Physician Assistant; Referring Provider Physician Assistant; Visit Provider Physician Assistant
DX: R63.4 Abnormal weight loss (principal); E61.1 Iron deficiency
CPT/HCPCS: 36415; 71046; 82728; 83540; 83550; 85025

== ENCOUNTER → 2020-02-02 09:09 | Outpatient (CLI) | payer MEDICARE, OTHER, SELFPAY ==
[2020-02-02 11:55] LABS: Bacteria Urine None Seen; RBC Urine None Seen (0-5/HPF); WBC Urine None Seen (0-5/HPF)
[2020-02-02 12:08] LABS: Appearance Urine UA CLEAR; Bilirubin Urine UA NEGATIVE (NEGATIVE); Color Urine UA YELLOW; Glucose Urine UA NEGATIVE (Negative); Ketones Urine UA NEGATIVE (NEGATIVE); Leukocyte Esterase Urine UA NEGATIVE (NEGATIVE); Nitrite Urine UA NEGATIVE (Negative); Occult Blood Urine UA NEGATIVE (Negative); Protein Urine UA NEGATIVE (Negative); Specific Gravity Urine UA <=1.005 (1.000-1.035); Urobilinogen Urine UA 0.2 E.U./dL (0.2)
[2020-02-02 12:16] LABS: Culture Indicated Urine Cult Not Indicated; Urine Comments Microscopic Normal
== END ==
PROVIDERS: PCP Physician Assistant; Referring Provider Internal Medicine Hematology & Oncology; Visit Provider Internal Medicine Hematology & Oncology
DX: Z13.9 Encounter for screening, unspecified (principal)
CPT/HCPCS: 81001

== ENCOUNTER 2020-02-21 16:33 | Emergency (ER) | payer MEDICARE, OTHER, SELFPAY ==
[2020-02-21] VITALS (9 sets, daily range): BP systolic 185–226; BP diastolic 77–95; PULSE 76–91; RESP 16–31; TEMP 36.4; O2SAT 97–100
--- NOTE | 2020-02-21 17:00 | DI.RAD.S_ITS ---
PROCEDURE: XR CHEST 1V INDICATIONS: chest pain TECHNIQUE: One view of the chest was acquired. COMPARISON: None. FINDINGS: Surgical changes and devices: None. Lungs and pleura: Lungs are clear. No pleural effusions or pneumothorax. Mediastinum: Mediastinal contours appear normal. Heart size is normal. Bones and chest wall: No suspicious bony lesions. Overlying soft tissues appear unremarkable. IMPRESSION: No acute process demonstrated. Dictated by: Robel Wheeler M.D. on 02/21/2020 at 17:22 Approved by: Robel Wheeler M.D. on 02/21/2020 at 17:23
--- NOTE | 2020-02-21 17:22 | ED_ITS ---
HPI - General Adult General Chief complaint: Hypertension Stated complaint: High blood pressure post iron infusion Time Seen by Provider: 02/21/20 17:09 Source: patient Mode of arrival: Ambulatory Limitations: no limitations History of Present Illness HPI narrative: 80-year-old female nonsmoker with a history of hyperlipidemia and iron deficiency anemia presents with her sister and a chief complaint of elevated blood pressure since completing her iron infusion this afternoon. She was recently or for by Hematology for iron infusions and had no trouble with the previous 3 infusions but today developed blood pressure upon completion. Her pressures have been as high as 220s and are down to back to a 5 on her arrival. She denies any headache or blurred vision. She denies any chest pain shortness of breath. She denies any dizziness, weakness or lightheadedness. She is otherwise well and free of early Onset (ago): hour(s) Exacerbating factors: none Associated symptoms: denies other symptoms Related Data Home Medications Medication Instructions Recorded Confirmed aspirin 81 mg PO DAILY 02/14/20 02/14/20 atorvastatin 10 mg PO QPM 02/14/20 02/14/20 duloxetine 60 mg PO BID 02/14/20 02/14/20 gabapentin 600 mg PO BID 02/14/20 02/14/20 hydrocortisone 1 applic TOPICAL BID 02/14/20 02/14/20 levothyroxine 88 mcg PO DAILY 02/14/20 02/14/20 lidocaine HCl [Lidocaine Viscous] 02/14/20 methocarbamol 750 mg PO Q6HR 02/14/20 02/14/20 montelukast [Singulair] 10 mg PO DAILY 02/14/20 02/14/20 omeprazole 40 mg PO BID 02/14/20 02/14/20 oxycodone-acetaminophen 2 tab PO Q6H PRN 02/14/20 02/14/20 Previous Rx's Medication Instructions Recorded amlodipine 5 mg PO DAILY #7 tab 02/21/20 Allergies Allergy/AdvReac Type Severity Reaction Status Date / Time amitriptyline Allergy Verified 02/14/20 12:23 bupropion [From Wellbutrin] Allergy Verified 02/14/20 12:23 lisinopril Allergy Verified 02/14/20 12:23 nystatin Allergy Verified 02/10/20 11:49 Penicillins Allergy Verified 02/10/20 11:49 venlafaxine [From Effexor] Allergy Verified 02/14/20 12:23 Review of Systems Constitutional Constitutional: Denies chills, Denies fatigue, Denies fever(s), Denies frequent falls, Denies lethargy and Denies weakness Eyes Eyes: Denies change in vision, Denies eye discharge, Denies irritation and Denies loss of vision ENT Ears, Nose, Mouth, and Throat: Denies change in voice, Denies dizziness, Denies neck pain, Denies sore throat and Denies throat swelling Cardiovascular Cardiovascular: Denies chest pain, Denies irregular heart rhythm, Denies lightheadedness, Denies palpitations, Denies dyspnea, Denies dyspnea on exertion and Denies orthopnea Respiratory Respiratory: Denies cough, Denies dyspnea, Denies dyspnea on exertion and Denies wheezing Gastrointestinal Gastrointestinal: Denies abdominal pain, Denies change in bowel habits, Denies diarrhea, Denies nausea and Denies vomiting Musculoskeletal Musculoskeletal: Denies neck pain and Denies numbness Integumentary/Breasts Skin/Breast: Denies pruritus, Denies erythema, Denies rash and Denies wounds Neurologic Neurologic: Denies behavioral changes, Denies confusion, Denies dizziness, Denies frequent falls, Denies loss of vision, Denies numbness and Denies weakness Psychiatric Psychiatric: Denies anxiety, Denies behavioral changes, Denies confusion, Denies depression, Denies homicidal ideation and Denies suicidal ideation Endocrine Endocrine: Denies fatigue, Denies flushing and Denies palpitations Hematologic/Lymphatic Hematologic/Lymphatic: Denies easy bruising Allergic/Immunologic Allergic/Immunologic: Denies urticaria, Denies throat swelling and Denies wheezing Patient History Medical History Depression GERD (gastroesophageal reflux disease) Hyperlipidemia Hypothyroidism Surgical History H/O right knee surgery H/O tubal ligation Family History Unknown Breast cancer Social History Smoking Status: Former smoker substance use type: does not use Smoking Status: Former smoker alcohol intake frequency: other Exam Narrative Exam Narrative: GEN: AOx3 and in mild distress EYES: Pupils are equal, round, and reactive to light and accommodation. Extraocc ular muscles are intact bilaterally. There is no subconjunctival hemorrhage or exudate. CHEST: Lungs are clear to auscultation bilaterally and free of wheezes, rales, or rhonchi. Heart rate is regular rhythm, there are no murmurs, clicks, rubs, or gallops. There is no chest wall tenderness. ABD: Abdomen is soft and nontender. There is no guarding or rebound. Bowel sounds are normal in all 4 quadrants. There is no mass or organomegaly. EXT: Full painless ROM of all extremities with no loss of sensation or strength. SKIN: Warm, pink, and dry. No erythema or rash Initial Vital Signs Initial Vital Signs: Vital Signs Temperature 97.6 F 02/21/20 16:50 Pulse Rate 90 02/21/20 16:50 Respiratory Rate 22 02/21/20 16:50 Blood Pressure 226/95 H 02/21/20 16:50 Pulse Oximetry 97 02/21/20 16:50 Course Orders Ordered: ED Orders 02/21/20 17:00 XR chest 1V Stat 02/21/20 17:06 EKG-12 Lead Stat 02/21/20 17:25 Complete Blood Count AUTO DIFF Stat Comprehensive Metabolic Panel Stat Lipase Stat Partial Thromboplastin Time Stat Prothrombin Time INR Stat Troponin & CK Cardiac Panel Stat Discontinued Medications Amlodipine Besylate (Amlodipine 5 Mg Tablet) 5 mg PO NOW ONE Stop: 02/21/20 18:54 Last Admin: 02/21/20 19:02 Dose: 5 mg Documented by: TOÑA Consultations Consultation #1: discussed with Dr. Montes (operations research group manager for PCP). She recommends amlodipine 5 mg daily, close follow-up in the clinic. Vital Signs Vital signs: Vital Signs - 8 hr 02/21/20 16:50 02/21/20 17:18 02/21/20 17:29 Temperature 97.6 F Pulse Rate 90 82 82 Respiratory Rate 22 20 Blood Pressure 226/95 H 218/88 H Pulse Oximetry 97 02/21/20 17:30 02/21/20 18:00 02/21/20 18:06 Temperature Pulse Rate 82 81 90 Respiratory Rate 28 H Blood Pressure 208/87 H Pulse Oximetry 100 02/21/20 18:30 02/21/20 19:00 Temperature Pulse Rate 76 91 H Respiratory Rate 26 H 31 H Blood Pressure Pulse Oximetry Medical Decision Making Lab Data Result diagrams: 02/21/20 17:25 02/21/20 17:25 Labs: Lab Results 02/21/20 02/21/20 02/21/20 Range/Units 17:25 17:25 17:25 WBC 14.2 H (4.5-11.0) X10^3/uL RBC 4.24 (4.0-5.2) X10^6/uL Hgb 10.8 L (12.0-16.0) g/dL Hct 33.6 L (36-46) % MCV 79.3 L (80-100) fL MCH 25.6 L (26-34) PG MCHC 32.3 (30-36) % RDW 17.7 H (11.6-14.8) % Plt Count 516 H (150-400) X10^3/uL Neut % (Auto) 73.7 (50-75) % Lymph % (Auto) 16.0 L (25-40) % [place] % (Auto) 9.0 (3-14) % Eos % (Auto) 0.5 L (2-4) % Baso % (Auto) 0.8 (0-2) % Neut # (Auto) 34759 H (7710-5426) /uL Lymph # (Auto) 2300 (0923-9799) /uL [place] # (Auto) 1300 H (0-900) /uL Eos # (Auto) 100 (0-450) /uL Baso # (Auto) 100 (0-100) /uL PT 10.8 (10.1-12.7) SECONDS INR 0.9 (0.9-1.3) APTT 34 (26.4-36.2) SECONDS Sodium 136 L (137-145) mmol/L Potassium 3.6 (3.4-5.1) mmol/L Chloride 102 (98-107) mmol/L Carbon Dioxide 31 (22-32) mmol/L BUN 10 (7-17) mg/dL Creatinine 0.72 (0.52-1.04) mg/dL Estimated GFR > 60.0 (>60) mL/min BUN/Creatinine Ratio 13.9 (6-22) Glucose 100 (80-110) mg/dL Calcium 8.8 (8.4-10.2) mg/dL Total Bilirubin 0.3 (0.2-1.3) mg/dL AST 31 (14-36) IU/L ALT 18 (<35) IU/L Alkaline Phosphatase 88 (38-126) U/L Total Creatine Kinase 54 (30-135) U/L CK-MB (CK-2) TNP CK-MB (CK-2) Rel Index TNP Troponin I < 0.012 (0.01-0.034) ng/mL Total Protein 6.8 (6.3-8.2) g/dL Albumin 3.7 (3.5-5.0) g/dL Globulin 3.1 (1.7-4.1) g/dL Albumin/Globulin Ratio 1.2 (1.0-2.8) Lipase 49 (23-300) U/L Discharge Plan Departure Patient Disposition: Home Clinical Impression: Hypertension Qualifiers: Hypertension type: unspecified secondary hypertension Qualified Code(s): I15.9 - Secondary hypertension, unspecified Iron deficiency anemia Qualifiers: Iron deficiency anemia type: unspecified iron deficiency Qualified Code(s): D50.9 - Iron deficiency anemia, unspecified Instructions: DI for High Blood Pressure Activity Restrictions/Additional Instructions: *You have been diagnosed with [high blood pressure, likely a consequence of your iron infusion] *What to do: *Take medications as directed *Follow up with your primary care provider in 2-3 days, call for an appointment. Let them know you were seen in the Emergency Department and that we ask that you be seen in follow up *Return to ER if you should have any new, worsening or concerning symptoms Prescriptions: New amlodipine 5 mg tablet 5 mg PO DAILY Qty: 7 RF: 0 No Action atorvastatin 10 mg Tablet 10 mg PO QPM RF: 0 omeprazole 40 mg Capsule,Delayed Release(Dr/Ec) 40 mg PO BID RF: 0 levothyroxine 88 mcg Tablet 88 mcg PO DAILY RF: 0 methocarbamol 750 mg Tablet 750 mg PO Q6HR RF: 0 oxycodone-acetaminophen 10-325 mg Tablet 2 tab PO Q6H PRN (Reason: Pain (Scale Score 1-3)) RF: 0 Lidocaine Viscous 2 % Solution RF: 0 hydrocortisone 2.5 % Cream 1 applic TOPICAL BID RF: 0 montelukast [Singulair] 10 mg Tablet 10 mg PO DAILY RF: 0 aspirin 81 mg Tablet 81 mg PO DAILY RF: 0 duloxetine 60 mg Capsule,Delayed Release(Dr/Ec) 60 mg PO BID RF: 0 gabapentin 300 mg Tablet 600 mg PO BID RF: 0 Referrals: Bernie Swartz PA-C [Primary Care Provider] -
--- NOTE | 2020-02-21 17:32 | PC.NURSE ---
patient received 4th Iron infusion today. After infusion BP high, told to go home and monitor BP. Continued to climb at home. Patient denies chest pain, SOB. Patient reports due to other health issues she has not been eating or drinking well. Patient has multiple mouth sores that have prevented her from good intake.
[2020-02-21 17:38] LABS: Add Manual Diff / Slide Review NO; Basophils Absolute Auto 100 /uL (0-100); Basophils Percent Auto 0.8 % (0-2); Eosinophils Absolute Auto 100 /uL (0-450); Eosinophils Percent Auto 0.5 % (2-4); Hematocrit 33.6 % (36-46); Hemoglobin 10.8 g/dL (12.0-16.0); Lymphocytes Absolute Auto 2300 /uL (1100-4500); Mean Corpuscular HGB Conc 32.3 % (30-36); Mean Corpuscular Hemoglobin 25.6 PG (26-34); Mean Corpuscular Volume 79.3 fL (80-100); Monocytes Absolute Auto 1300 /uL (0-900); Neutrophils Absolute Auto 10500 /uL (1500-7000); Neutrophils Percent Auto 73.7 % (50-75); Platelet Count 516 X10^3/uL (150-400); Red Blood Cell Count 4.24 X10^6/uL (4.0-5.2); Red Cell Distribution Width 17.7 % (11.6-14.8); White Blood Cell Count 14.2 X10^3/uL (4.5-11.0)
[2020-02-21 17:43] LABS: INR 0.9 (0.9-1.3); Prothrombin Time 10.8 SECONDS (10.1-12.7)
[2020-02-21 17:46] LABS: PTT Partial Thromboplastin Tim 34 SECONDS (26.4-36.2)
[2020-02-21 17:51] LABS: Alanine Aminotransferase 18 IU/L (<35); Albumin 3.7 g/dL (3.5-5.0); Albumin Globulin Ratio 1.2 (1.0-2.8); Alkaline Phosphatase 88 U/L (38-126); Aspartate Aminotransferase 31 IU/L (14-36); BUN Creatinine Ratio 13.9 (6-22); Bilirubin Total 0.3 mg/dL (0.2-1.3); Blood Urea Nitrogen 10 mg/dL (7-17); Calcium 8.8 mg/dL (8.4-10.2); Carbon Dioxide 31 mmol/L (22-32); Chloride 102 mmol/L (98-107); Creatine Kinase 54 U/L (30-135); Estimated Glomerular Filt Rate > 60.0 mL/min (>60); Globulin 3.1 g/dL (1.7-4.1); Glucose 100 mg/dL (80-110); HEMOLYSIS < 15 (0-50); Lipase 49 U/L (23-300); Potassium 3.6 mmol/L (3.4-5.1); Sodium 136 mmol/L (137-145); Total Protein 6.8 g/dL (6.3-8.2)
[2020-02-21 18:02] LABS: Troponin I < 0.012 ng/mL (0.01-0.034)
[2020-02-21] MEDS: AMLODIPINE 5 MG TABLET PO (19:02)
== END 2020-02-21 19:43 | disposition home or self-care (01) ==
PROVIDERS: Emergency Provider Emergency Medicine; PCP Physician Assistant
DX: I10 Essential (primary) hypertension (principal); D50.9 Iron deficiency anemia, unspecified; R07.9 Chest pain, unspecified; E78.5 Hyperlipidemia, unspecified; E03.9 Hypothyroidism, unspecified
CPT/HCPCS: 36415; 71045; 80053; 82550; 83690; 84484; 85025; 85610; 85730; 93005; 96365; 99283; 99284; J1756

== ENCOUNTER → 2020-02-28 13:15 | Outpatient (CLI) | payer MEDICARE, OTHER, SELFPAY ==
[2020-02-28 14:31] LABS: COVID19 -Nasal RAPID Negative (Negative)
== END ==
PROVIDERS: PCP Physician Assistant; Visit Provider Physician Assistant
DX: Z01.812 Encounter for preprocedural laboratory examination (principal); Z20.822 Contact with and (suspected) exposure to COVID-19
CPT/HCPCS: 87635; C9803

== ENCOUNTER 2020-03-01 13:56 | Day surgery (SDC) | payer MEDICARE, OTHER, SELFPAY ==
--- NOTE | 2020-03-01 | PATH_ITS ---
[facility] Accession Number: [id number] . 01 Material submitted: . PART A: gastrointestinal site - BODY ANTRUM PART B: colon - RANDOM BIOPSIES PART C: colon - DESCENDING POLYP . 01 Clinical history: . A. H. PYLORI B. MICROSCOPIC COLITIS . 02 Diagnosis: A. Stomach, Antrum and Body, Biopsy: Antral and body-type mucosa with mild chronic gastritis. Negative for Helicobacter by immunohistochemistry. Negative for intestinal metaplasia. Negative for dysplasia and malignancy. . B. Random Colon, Biopsies: Colonic mucosa with no diagnostic abnormality. Negative for active, chronic, and microscopic colitis. Negative for dysplasia and malignancy. . C. Descending Colon, Polyp, Biopsy: Colonic mucosa with no diagnostic abnormality, consistent with polypoid redundancy. Additional levels were examined. Negative for dysplasia and malignancy. [facility] 03/06/2020 1353 Local . 02 Electronically signed: . Emma Dorantes MD, Pathologist NPI- [id number] . 01 Gross description: . Part A: BODY ANTRUM: Received in formalin are 3 fragment(s) of davis, soft tissue measuring 0.1 x 0.1 x 0.1 cm to 0.3 x 0.3 x 0.2 cm submitted entirely in 1 cassette(s) Part B: RANDOM BIOPSIES: Received in formalin are multiple fragment(s) of davis, soft tissue measuring 0.1 x 0.1 x 0.1 cm to 0.3 x 0.3 x 0.3 cm submitted entirely in 1 cassette(s) Part C: DESCENDING POLYP: Received in formalin is 1 fragment(s) of davis, soft tissue measuring 0.3 x 0.3 x 0.3 cm submitted entirely in 1 cassette(s) /[facility] 03/02/2020 1913 Local . 02 Microscopic: . A. An immunohistochemical stain was performed to evaluate for Helicobacter organisms and is negative. The control stain showed appropriate reactivity. . C. Additional levels were examined. . * This test was developed and its performance characteristics determined by [facility]. It has not been cleared or approved by the U.S. Food and Drug Administration. The FDA has determined that such clearance or approval is not necessary. This test is used for clinical purposes. It should not be regarded as investigational or for research. . 02 Pathologist provided ICD-10: R19.4 . 02 CPT . 593595, 535914, 260464, [id number] Performed at: 01 [facility] [address] [place] [address], [place], [place] [id number] MD Boaz Cornell MD Phone: [phone] Performed [facility]: 02 [facility] [address] [place], [place] [id number] MD Emma Dorantes MD Phone: [phone]
--- NOTE | 2020-03-01 10:03 | PM.HP.1 ---
History of Present Illness History of Present Illness [place] [facility] [place]: 72-year-old female seen on 01/06/2020 due to esophageal dysphagia and changes in bowel habit. Please refer to that office note for further details. She has no new changes in her symptoms since that office visit Patient History Medical History (Updated 03/01/20 @ 14:24 by Jagruti Uribe, RN) Abdominal pain Arthritis Back pain Change in bowel habits Constipation Depression Diarrhea Early satiety Edema Esophageal dysphagia GERD (gastroesophageal reflux disease) Heartburn Hyperlipidemia Hypothyroidism Joint stiffness Muscle pain Vaginal itching Surgical History (Updated 03/01/20 @ 14:12 by Jagruti Uribe, RN) H/O right knee surgery H/O tubal ligation History of bilateral tubal ligation History of colonoscopy History of esophagogastroduodenoscopy (EGD) Family & Social History Family History Unknown Breast cancer Meds Home Medications and Allergies Home Medications Medication Instructions Recorded Confirmed Type aspirin 81 mg PO DAILY 02/14/20 03/01/20 History atorvastatin 10 mg PO QPM 02/14/20 03/01/20 History duloxetine 60 mg PO BID 02/14/20 03/01/20 History gabapentin 600 mg PO BID 02/14/20 03/01/20 History hydrocortisone 1 applic TOPICAL BID 02/14/20 03/01/20 History levothyroxine 88 mcg PO DAILY 02/14/20 03/01/20 History lidocaine HCl [Lidocaine Viscous] See Rx Instructions .ROUTE .COMPLEX 02/14/20 03/01/20 History methocarbamol 750 mg PO Q6HR 02/14/20 03/01/20 History montelukast [Singulair] 10 mg PO DAILY 02/14/20 03/01/20 History omeprazole 40 mg PO BID 02/14/20 03/01/20 History oxycodone-acetaminophen 2 tab PO Q6H PRN 02/14/20 03/01/20 History amlodipine 5 mg PO DAILY #7 tab 02/21/20 03/01/20 Rx hyoscyamine sulfate 0.125 mg PO PRN PRN 03/01/20 03/01/20 History Allergies Allergy/AdvReac Type Severity Reaction Status Date / Time cyclobenzaprine Allergy Unknown Verified 03/01/20 14:25 [From Flexeril] amitriptyline Allergy Verified 03/01/20 14:25 bupropion [From Wellbutrin] Allergy Verified 03/01/20 14:25 lisinopril Allergy Verified 03/01/20 14:25 nystatin Allergy Verified 03/01/20 14:25 Penicillins Allergy Verified 03/01/20 14:25 venlafaxine [From Effexor] Allergy Verified 03/01/20 14:25 Exam Narrative Exam Narrative: General: Patient is well developed, not in apparent distress Cardiovascular: Regular rate and rhythm, no murmurs, rubs, or gallops; no evidence of edema; no palpable abdominal aortic aneurysm Gastrointestinal: Normoactive bowel sounds, soft, nontender, nondistended, no rebound tenderness, no hepatosplenomegaly, no evidence of hernia Assessment & Plan Assessment & Plan narrative: 72-year-old female with esophageal dysphagia and changes in bowel habits who is here for further evaluation by means of EGD and colonoscopy Regarding the procedure(s), the risks and potential complications, benefits, and alternatives (including not doing the procedure) were discussed with the patient. The risks include but are not limited to bleeding, splenic injury, infection, perforation which may require surgical intervention, missed lesions, and adverse reactions to sedative medicines. After a question and answer period, the patient agreed to proceed with the procedure(s) and gives informed consent.
[2020-03-01 14:32] VITALS: BP 173/81; PULSE 103; RESP 18; TEMP 36.2; O2SAT 98; BMI 28.8
[2020-03-01] MEDS: SODIUM CHLORIDE 0.9% 1,000 ML 70 ML IV (14:41)
--- NOTE | 2020-03-01 14:54 | P.OP.ENDO_ITS ---
Operative Date/Time/Diagnoses Date of procedure: 03/01/20 Procedure Notes Procedure in detail: Surgeon: Blaise Hale MD Procedure: Esophagogastroduodenoscopy with biopsy and colonoscopy with polypectomy and biopsies Preoperative diagnosis: Esophageal dysphagia, change in bowel habits Postoperative diagnosis: No etiology found for esophageal dysphagia; Gastric erythema; descending colon polyp; left-sided diverticulosis; grade 1 internal hemorrhoids Medications: Monitored anesthesia care due to history of chronic narcotic use Preanesthesia Assessment An H and P was performed/updated and the Px?s ASA class is 3. The procedure was discussed in detail with the patient. The potential risks and complications including infection, bleeding, missed lesions, perforation, need for surgery in case of perforation, prolonged hospital stay, and were explained. A brief question and answer period was allotted and once all questions were answered, informed consent was obtained. The patient was brought back to the procedure room and placed on standard monitoring. The patient?s vital signs were monitored continuously throughout the entire procedure. Prior to starting, a timeout was performed to confirm the patient?s identity, allergies, medications, and procedure. Procedure in detail The patient was placed in left lateral decubitus position and a bite block was inserted. The tip of the upper endoscope was placed into the mouth and advanced without difficulty under direct visualization into the esophagus. Esophagus: The esophageal mucosa appeared normal with no evidence of mechanical obstruction such as stenosis or mass. As such, no dilation was performed Stomach: Patchy erythema in the antrum, biopsies were taken for H pylori using cold forceps with minimal bleeding. Retroflexion in the stomach revealed no lesions in the cardia or fundus Duodenum: The visualized duodenal mucosa was normal up to the 2nd portion of the duodenum After the upper endoscopy, preparations were made for the colonoscopy. Once adequate sedation was obtained a AMITA was performed. The digital rectal examination did not reveal any palpable lesions. The tip of the colonoscope was placed in the anal canal and advanced without difficulty all the way to the cecum which was identified by the appendiceal orifice and the ileocecal valve. The terminal ileum was intubated to a distance of 5 cm from the ileocecal valve and the mucosa appeared normal. The colonoscope was then brought back to the cecum and careful examination of all meredith of the colon was performed with irrigation of any residual stool. The colonic mucosa appeared normal throughout the entire colon. Random colon biopsies were taken from the right left colon check for microscopic colitis. This was done by means of cold Jumbo forceps with minimal bleeding. In the descending colon, there was note of a 2 mm sessile polyp which was removed by cold Jumbo forceps. Resection retrieval was complete with minimal bleeding In the descending colon and sigmoid colon, there was note of multiple medium- sized diverticula Retroflexion was performed in the rectum which revealed grade 1 internal hemorrhoids The patient tolerated the procedure well and will be brought back to the recovery area to be discharged once criteria are met. The prep was judged to be good and adequate to identify polyps less than 5 mm. The withdrawal time was 9 minutes. Complications There were no complications and estimated blood loss was minimal. Recommendations Resume previous diet We will order an esophageal manometry and barium esophagram with 12.5 mm pill to further evaluate your esophageal symptoms Continue outpatient medications Follow-up pathology results Repeat colonoscopy in 5 or 7 years if the polyp is an adenoma Call our office ([facility] [place] [facility]) to schedule follow-up with An emergency contact number was given to the patient for any complications related to the procedure
[2020-03-01 15:21] VITALS: BP 127/58; PULSE 104; RESP 17; TEMP 36.6; O2SAT 100
[2020-03-01 15:26] VITALS: BP 148/69; PULSE 103; RESP 19; O2SAT 100
[2020-03-01] MEDS: OXYCODONE/ACETAMINOPHEN 5/325 TABLET 1 TAB PO ×2 (15:35→15:55)
[2020-03-01 15:36] VITALS: BP 187/87; PULSE 98; RESP 17; O2SAT 100
[2020-03-01 15:43] VITALS: BP 189/92; PULSE 98; RESP 16; TEMP 36.6; O2SAT 100
[2020-03-01 16:16] VITALS: BP 165/85; PULSE 87; RESP 16; TEMP 36.4; O2SAT 99
== END 2020-03-01 16:16 | disposition home or self-care (01) ==
PROVIDERS: PCP Physician Assistant; Referring Provider Internal Medicine Gastroenterology; Visit Provider Internal Medicine Gastroenterology
PROC: 0DJ08ZZ Inspection of Upper Intestinal Tract, Via Natural or Artificial Opening Endoscopic (ICD-10-PCS; CPT 43235; principal; 2020-03-01 14:00)
PROC: 0DJD8ZZ Inspection of Lower Intestinal Tract, Via Natural or Artificial Opening Endoscopic (ICD-10-PCS; CPT 45378; 2020-03-01 14:00)
DX: R19.4 Change in bowel habit (principal); R13.14 Dysphagia, pharyngoesophageal phase; K57.30 Diverticulosis of large intestine without perforation or abscess without bleeding; L53.8 Other specified erythematous conditions; K64.0 First degree hemorrhoids; K63.5 Polyp of colon; K29.50 Unspecified chronic gastritis without bleeding
CPT/HCPCS: 45380; 43239; J2405; J2704; J3010

== ENCOUNTER → 2020-04-26 09:06 | Outpatient (CLI) | payer MEDICARE, OTHER, SELFPAY ==
[2020-04-26 10:17] LABS: HEMOLYSIS < 15 (0-50); Iron 76 ug/dL (37-170)
[2020-04-26 10:18] LABS: Add Manual Diff / Slide Review NO; Basophils Absolute Auto 0 /uL (0-100); Basophils Percent Auto 0.3 % (0-2); Eosinophils Absolute Auto 100 /uL (0-450); Eosinophils Percent Auto 0.5 % (2-4); Hematocrit 35.2 % (36-46); Hemoglobin 11.3 g/dL (12.0-16.0); Lymphocytes Absolute Auto 2000 /uL (1100-4500); Lymphocytes Percent Auto 17.3 % (25-40); Mean Corpuscular HGB Conc 32.2 % (30-36); Mean Corpuscular Hemoglobin 26.3 PG (26-34); Mean Corpuscular Volume 81.9 fL (80-100); Monocytes Absolute Auto 800 /uL (0-900); Monocytes Percent Auto 6.7 % (3-14); Neutrophils Absolute Auto 8900 /uL (1500-7000); Neutrophils Percent Auto 75.2 % (50-75); Platelet Count 537 X10^3/uL (150-400); Red Cell Distribution Width 17.3 % (11.6-14.8); White Blood Cell Count 11.8 X10^3/uL (4.5-11.0)
[2020-04-26 10:21] LABS: Alanine Aminotransferase 19 IU/L (<35); Albumin Globulin Ratio 1.6 (1.0-2.8); Alkaline Phosphatase 99 U/L (38-126); Aspartate Aminotransferase 18 IU/L (14-36); BUN Creatinine Ratio 20.8 (6-22); Bilirubin Total 0.2 mg/dL (0.2-1.3); Blood Urea Nitrogen 15 mg/dL (7-17); C-Reactive Protein Quant 3.9 mg/dL (<1.0); Calcium 8.9 mg/dL (8.4-10.2); Carbon Dioxide 28 mmol/L (22-32); Chloride 93 mmol/L (98-107); Estimated Glomerular Filt Rate > 60.0 mL/min (>60); Globulin 2.5 g/dL (1.7-4.1); Glucose 108 mg/dL (80-110); HEMOLYSIS < 15 (0-50); Potassium 5.2 mmol/L (3.4-5.1); Sodium 128 mmol/L (137-145); Total Protein 6.5 g/dL (6.3-8.2)
[2020-04-26 10:28] LABS: Percent Iron Saturation 24 % (15-50); Total Iron Binding Capacity 313 ug/dL (265-497); Transferrin 230 mg/dL (206-381)
[2020-04-26 10:49] LABS: Erythrocyte Sedimentation Rate 13 MM/HR (0-20)
[2020-04-26 10:50] LABS: TSH w/ Reflex to FT4 0.26 uIU/mL (0.47-4.68)
[2020-04-26 10:54] LABS: Ferritin 76 ng/mL (11-264)
[2020-04-26 11:55] LABS: Free T4, Direct Thyroxine 1.71 ng/dL (0.78-2.19)
[2020-04-27 13:28] LABS: SS A Ro Sjogrens Antibody < 0.2 AI (0.0-0.9); SS B La Sjogrens Antibody < 0.2 AI (0.0-0.9)
[2020-04-27 17:36] LABS: DNA (DS) Antibody <1 IU/mL (0-9)
[2020-04-28 14:39] LABS: ANA Screen, IFA Negative (.)
[2020-05-10 13:50] LABS: Cardiolipin IgA Negative
== END ==
PROVIDERS: PCP Physician Assistant; Referring Provider Physician Assistant; Visit Provider Physician Assistant
DX: E03.9 Hypothyroidism, unspecified (principal); R61 Generalized hyperhidrosis; E61.1 Iron deficiency; D72.829 Elevated white blood cell count, unspecified; M25.50 Pain in unspecified joint; R68.83 Chills (without fever); G89.29 Other chronic pain
CPT/HCPCS: 36415; 80053; 82728; 83520; 83540; 83550; 84439; 84443; 85025; 85651; 86038; 86140; 86147; 86225; 86235

== ENCOUNTER → 2020-05-03 09:06 | Outpatient (CLI) | payer MEDICARE, OTHER, SELFPAY ==
[2020-05-03 11:12] LABS: BUN Creatinine Ratio 23.7 (6-22); Blood Urea Nitrogen 18 mg/dL (7-17); Carbon Dioxide 34 mmol/L (22-32); Chloride 96 mmol/L (98-107); Estimated Glomerular Filt Rate > 60.0 mL/min (>60); Glucose 104 mg/dL (80-110); HEMOLYSIS < 15 (0-50); Potassium 4.9 mmol/L (3.4-5.1); Sodium 133 mmol/L (137-145)
== END ==
PROVIDERS: PCP Physician Assistant; Referring Provider Physician Assistant; Visit Provider Physician Assistant
DX: E87.1 Hypo-osmolality and hyponatremia (principal)
CPT/HCPCS: 36415; 80048

== ENCOUNTER → 2020-05-22 18:29 | Outpatient (ROUT) | payer MEDICARE, OTHER, SELFPAY ==
[2020-05-22 19:06] LABS: Add Manual Diff / Slide Review NO; Basophils Absolute Auto 100 /uL (0-100); Basophils Percent Auto 0.5 % (0-2); Eosinophils Absolute Auto 100 /uL (0-450); Eosinophils Percent Auto 0.9 % (2-4); Hematocrit 34.5 % (36-46); Hemoglobin 11.4 g/dL (12.0-16.0); Lymphocytes Absolute Auto 1900 /uL (1100-4500); Lymphocytes Percent Auto 18.2 % (25-40); Mean Corpuscular HGB Conc 33.1 % (30-36); Mean Corpuscular Hemoglobin 27.5 PG (26-34); Mean Corpuscular Volume 83.3 fL (80-100); Monocytes Absolute Auto 900 /uL (0-900); Monocytes Percent Auto 8.6 % (3-14); Neutrophils Absolute Auto 7500 /uL (1500-7000); Neutrophils Percent Auto 71.8 % (50-75); Platelet Count 546 X10^3/uL (150-400); Red Blood Cell Count 4.14 X10^6/uL (4.0-5.2); Red Cell Distribution Width 15.7 % (11.6-14.8); White Blood Cell Count 10.5 X10^3/uL (4.5-11.0)
[2020-05-22 19:15] LABS: HEMOLYSIS < 15 (0-50); Iron 34 ug/dL (37-170)
[2020-05-22 19:20] LABS: Alanine Aminotransferase 20 IU/L (<35); Albumin 4.4 g/dL (3.5-5.0); Albumin Globulin Ratio 1.6 (1.0-2.8); Alkaline Phosphatase 102 U/L (38-126); Aspartate Aminotransferase 26 IU/L (14-36); Bilirubin Total 0.4 mg/dL (0.2-1.3); Blood Urea Nitrogen 17 mg/dL (7-17); C-Reactive Protein Quant 1.4 mg/dL (<1.0); Calcium 9.6 mg/dL (8.4-10.2); Carbon Dioxide 28 mmol/L (22-32); Chloride 93 mmol/L (98-107); Estimated Glomerular Filt Rate > 60.0 mL/min (>60); Globulin 2.7 g/dL (1.7-4.1); Glucose 98 mg/dL (80-110); HEMOLYSIS 15 (0-50); Potassium 4.7 mmol/L (3.4-5.1); Sodium 128 mmol/L (137-145); Total Protein 7.1 g/dL (6.3-8.2)
[2020-05-22 19:22] LABS: Erythrocyte Sedimentation Rate 13 MM/HR (0-20)
[2020-05-22 19:26] LABS: Percent Iron Saturation 11 % (15-50); Total Iron Binding Capacity 314 ug/dL (265-497); Transferrin 269 mg/dL (206-381)
[2020-05-22 19:48] LABS: TSH w/ Reflex to FT4 0.34 uIU/mL (0.47-4.68)
[2020-05-22 19:51] LABS: Ferritin 64 ng/mL (11-264)
[2020-05-22 20:35] LABS: Free T4, Direct Thyroxine 1.73 ng/dL (0.78-2.19)
[2020-05-24 12:39] LABS: Albumin 3.5 g/dL (2.9-4.4); Alpha-1-Globulin 0.3 g/dL (0.0-0.4); Alpha-2-Globulin 0.9 g/dL (0.4-1.0); Gamma Globulin 0.9 g/dL (0.4-1.8); Globulin Total 3.1 g/dL (2.2-3.9); Protein, Total 6.6 g/dL (6.0-8.5)
== END ==
PROVIDERS: PCP Physician Assistant; Visit Provider Physician Assistant
DX: E87.1 Hypo-osmolality and hyponatremia (principal); D72.829 Elevated white blood cell count, unspecified; R61 Generalized hyperhidrosis; R79.82 Elevated C-reactive protein (CRP)
CPT/HCPCS: 80053; 82728; 83540; 83550; 84155; 84165; 84439; 84443; 85025; 85651; 86140

== ENCOUNTER → 2020-06-01 09:00 | Outpatient (CLI) | payer MEDICARE, OTHER, SELFPAY ==
--- NOTE | 2020-06-01 09:23 | DI.CT.S_ITS ---
PROCEDURE: CT CHEST ABD PEL W CON INDICATIONS: generalized hyperhidrosis TECHNIQUE: After the administration of oral and intravenous contrast, 5 mm thick sections acquired from the lung apices to the symphysis. 5 mm coronal and sagittal reformats were performed, with additional 7 mm coronal MIP reformats through the lungs. For radiation dose reduction, the following was used: automated exposure control, adjustment of mA and/or kV according to patient size. COMPARISON: None. FINDINGS: Image quality: Excellent. CHEST: Lungs and pleura: There are right middle lobe scars and atelectasis. Mild subtle ground-glass infiltrates bilaterally. No pleural effusions or pneumothorax. Central and peripheral airways appear patent and normal in caliber. Mediastinum: Heart size is normal. Mild coronary artery calcification. No pericardial effusion. No mediastinal or hilar adenopathy by size criteria. Thoracic aorta and central pulmonary arteries are normal in size. Esophagus is mildly distended and filled with contrast. There is a moderate-sized hiatal hernia. Chest wall: No axillary or supraclavicular adenopathy by size criteria. Numerous small axillary lymph nodes are present bilaterally. Thyroid gland is normal. ABDOMEN: Solid organs: Tiny indeterminate hepatic hypodensities in segment 4 most likely liver cysts. Liver is normal in size and enhancement. Gallbladder is atrophic. Biliary system is non dilated. Pancreas enhances normally. Spleen is normal in size and enhancement. No adrenal nodules. Kidneys demonstrate normal size and enhancement, without hydronephrosis. Peritoneum and bowel: There are scattered colonic diverticula. There is mild segmental thickening of the sigmoid colon suggesting mild diverticulitis. Bowel loops demonstrate normal wall thickness and caliber. There is a large amount of stool in colon. Normal appendix. No free fluid or air. Nodes and vessels: No retroperitoneal or mesenteric adenopathy by size criteria. Aorta and inferior vena cava are normal in size. Miscellaneous: No ventral hernias. PELVIS: Genitourinary: Uterus is normal. Ovaries are not well seen. No pathological free-fluid in pelvis. Bladder wall thickness is normal. Miscellaneous: No inguinal hernias or adenopathy. Bones: No suspicious bony lesions. No vertebral body compression fractures. There is moderate levoscoliosis. 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 IMPRESSION: 1. Mild subtle ground-glass infiltrates are present bilaterally suggesting pneumonia or pneumonitis. There are right middle lobe scars and atelectasis. 2. Numerous small axillary lymph nodes are present bilaterally, most likely reactive. Recommend clinical correlation and follow-up. 3. Diverticulosis. There is mild segmental thickening of sigmoid colon suggesting mild diverticulitis. Recommend clinical correlation. 4. A large amount of stool in colon. 5. Moderate-sized hiatal hernia. The esophagus is mildly distended and filled with fluid, likely secondary to gastroesophageal reflux. 6. Scoliosis and severe degenerative changes in lumbar spine. Dictated by: Carolin Butler M.D. on 06/01/2020 at 14:32 Transcribed by: KIRBY on 06/01/2020 at 14:38 Approved by: Carolin Butler M.D. on 06/01/2020 at 17:40
== END ==
PROVIDERS: PCP Physician Assistant; Referring Provider Physician Assistant; Visit Provider Physician Assistant
DX: R61 Generalized hyperhidrosis (principal); K57.30 Diverticulosis of large intestine without perforation or abscess without bleeding; K44.9 Diaphragmatic hernia without obstruction or gangrene; M41.86 Other forms of scoliosis, lumbar region
CPT/HCPCS: 71260; 74177

== ENCOUNTER → 2020-06-22 13:11 | Outpatient (CLI) | payer MEDICARE, OTHER, SELFPAY ==
[2020-06-22 15:01] LABS: Add Manual Diff / Slide Review NO; Basophils Absolute Auto 100 /uL (0-100); Basophils Percent Auto 0.5 % (0-2); Eosinophils Absolute Auto 100 /uL (0-450); Eosinophils Percent Auto 0.5 % (2-4); Hematocrit 33.8 % (36-46); Hemoglobin 10.9 g/dL (12.0-16.0); Lymphocytes Absolute Auto 2100 /uL (1100-4500); Mean Corpuscular HGB Conc 32.2 % (30-36); Mean Corpuscular Hemoglobin 26.8 PG (26-34); Mean Corpuscular Volume 83.4 fL (80-100); Monocytes Absolute Auto 1000 /uL (0-900); Monocytes Percent Auto 7.5 % (3-14); Neutrophils Absolute Auto 9800 /uL (1500-7000); Neutrophils Percent Auto 75.5 % (50-75); Platelet Count 639 X10^3/uL (150-400); Red Blood Cell Count 4.06 X10^6/uL (4.0-5.2); Red Cell Distribution Width 15.5 % (11.6-14.8)
[2020-06-22 15:37] LABS: Alanine Aminotransferase 20 IU/L (<35); Aspartate Aminotransferase 34 IU/L (14-36)
== END ==
PROVIDERS: PCP Physician Assistant; Referring Provider Dentist; Visit Provider Dentist
DX: K13.4 Granuloma and granuloma-like lesions of oral mucosa (principal)
CPT/HCPCS: 36415; 84450; 84460; 85025

== ENCOUNTER → 2020-07-20 10:36 | Outpatient (CLI) | payer MEDICARE, OTHER, SELFPAY ==
[2020-07-20 11:16] LABS: Add Manual Diff / Slide Review NO; Basophils Absolute Auto 100 /uL (0-100); Basophils Percent Auto 0.5 % (0-2); Eosinophils Absolute Auto 200 /uL (0-450); Lymphocytes Absolute Auto 2100 /uL (1100-4500); Lymphocytes Percent Auto 13.3 % (25-40); Mean Corpuscular HGB Conc 32.4 % (30-36); Mean Corpuscular Hemoglobin 28.8 PG (26-34); Mean Corpuscular Volume 88.8 fL (80-100); Monocytes Absolute Auto 1000 /uL (0-900); Monocytes Percent Auto 6.2 % (3-14); Neutrophils Absolute Auto 12300 /uL (1500-7000); Platelet Count 660 X10^3/uL (150-400); Red Blood Cell Count 3.49 X10^6/uL (4.0-5.2); Red Cell Distribution Width 17.4 % (11.6-14.8); White Blood Cell Count 15.5 X10^3/uL (4.5-11.0)
[2020-07-20 11:28] LABS: Alanine Aminotransferase 14 IU/L (<35); Albumin 4.1 g/dL (3.5-5.0); Albumin Globulin Ratio 1.4 (1.0-2.8); Alkaline Phosphatase 93 U/L (38-126); Aspartate Aminotransferase 37 IU/L (14-36); BUN Creatinine Ratio 27.7 (6-22); Bilirubin Total 0.4 mg/dL (0.2-1.3); Blood Urea Nitrogen 18 mg/dL (7-17); Carbon Dioxide 26 mmol/L (22-32); Chloride 97 mmol/L (98-107); Estimated Glomerular Filt Rate > 60.0 mL/min (>60); Globulin 2.9 g/dL (1.7-4.1); Glucose 100 mg/dL (80-110); HEMOLYSIS < 15 (0-50); Potassium 4.5 mmol/L (3.4-5.1); Sodium 131 mmol/L (137-145)
[2020-07-20 11:33] LABS: Alanine Aminotransferase 14 IU/L (<35); Aspartate Aminotransferase 27 IU/L (14-36)
[2020-07-20 11:38] LABS: HEMOLYSIS < 15 (0-50); Iron 42 ug/dL (37-170)
[2020-07-20 11:48] LABS: Percent Iron Saturation 14 % (15-50); Total Iron Binding Capacity 304 ug/dL (265-497); Transferrin 249 mg/dL (206-381)
[2020-07-20 12:01] LABS: Ferritin 135 ng/mL (11-264)
[2020-07-20 12:12] LABS: TSH w/ Reflex to FT4 1.45 uIU/mL (0.47-4.68)
[2020-07-22 03:37] LABS: SS A Ro Sjogrens Antibody < 0.2 AI (0.0-0.9); SS B La Sjogrens Antibody < 0.2 AI (0.0-0.9)
[2020-07-22 23:37] LABS: Glucose-6-Phosphate Dehydrogen 378 (127-427)
== END ==
PROVIDERS: Internal Medicine Hematology & Oncology; PCP Physician Assistant; Referring Provider Physician Assistant; Visit Provider Physician Assistant
DX: I10 Essential (primary) hypertension (principal); K13.4 Granuloma and granuloma-like lesions of oral mucosa; E78.5 Hyperlipidemia, unspecified; E03.9 Hypothyroidism, unspecified; D50.9 Iron deficiency anemia, unspecified
CPT/HCPCS: 36415; 80053; 82728; 82955; 83540; 83550; 84443; 84450; 84460; 85025; 85041; 86235

== ENCOUNTER → 2020-09-05 13:24 | Outpatient (CLI) | payer MEDICARE, OTHER, SELFPAY ==
[2020-09-05 13:54] LABS: Add Manual Diff / Slide Review NO; Basophils Absolute Auto 100 /uL (0-100); Basophils Percent Auto 0.9 % (0-2); Eosinophils Absolute Auto 0 /uL (0-450); Eosinophils Percent Auto 0.4 % (2-4); Hematocrit 35.1 % (36-46); Hemoglobin 11.3 g/dL (12.0-16.0); Lymphocytes Absolute Auto 1900 /uL (1100-4500); Lymphocytes Percent Auto 18.2 % (25-40); Mean Corpuscular HGB Conc 32.2 % (30-36); Mean Corpuscular Hemoglobin 28.8 PG (26-34); Mean Corpuscular Volume 89.5 fL (80-100); Monocytes Absolute Auto 500 /uL (0-900); Monocytes Percent Auto 4.9 % (3-14); Neutrophils Absolute Auto 7900 /uL (1500-7000); Neutrophils Percent Auto 75.6 % (50-75); Platelet Count 551 X10^3/uL (150-400); Red Blood Cell Count 3.92 X10^6/uL (4.0-5.2); Red Cell Distribution Width 14.2 % (11.6-14.8); White Blood Cell Count 10.4 X10^3/uL (4.5-11.0)
[2020-09-05 14:10] LABS: Alanine Aminotransferase 16 IU/L (<35); Albumin 4.1 g/dL (3.5-5.0); Albumin Globulin Ratio 1.5 (1.0-2.8); Alkaline Phosphatase 76 U/L (38-126); Aspartate Aminotransferase 24 IU/L (14-36); BUN Creatinine Ratio 15.5 (6-22); Bilirubin Total 0.4 mg/dL (0.2-1.3); Blood Urea Nitrogen 9 mg/dL (7-17); Carbon Dioxide 25 mmol/L (22-32); Chloride 97 mmol/L (98-107); Estimated Glomerular Filt Rate > 60.0 mL/min (>60); Globulin 2.8 g/dL (1.7-4.1); Glucose 98 mg/dL (80-110); HEMOLYSIS < 15 (0-50); Potassium 4.1 mmol/L (3.4-5.1); Sodium 130 mmol/L (137-145); Total Protein 6.9 g/dL (6.3-8.2)
[2020-09-05 14:34] LABS: HEMOLYSIS < 15 (0-50); Iron 29 ug/dL (37-170)
[2020-09-05 14:45] LABS: Ferritin 85 ng/mL (11-264); Percent Iron Saturation 11 % (15-50); Total Iron Binding Capacity 262 ug/dL (265-497); Transferrin 209 mg/dL (206-381)
[2020-09-06 16:44] LABS: SS A Ro Sjogrens Antibody < 0.2 AI (0.0-0.9); SS B La Sjogrens Antibody < 0.2 AI (0.0-0.9)
[2020-09-08 12:07] LABS: Glucose-6-Phosphate Dehydrogen 417 (127-427)
== END ==
PROVIDERS: Internal Medicine Hematology & Oncology; PCP Physician Assistant; Referring Provider Dentist; Visit Provider Dentist
DX: K13.4 Granuloma and granuloma-like lesions of oral mucosa (principal); D50.9 Iron deficiency anemia, unspecified
CPT/HCPCS: 36415; 80053; 82728; 82955; 83540; 83550; 85025; 85041; 86235

== ENCOUNTER → 2020-10-04 10:06 | Outpatient (CLI) | payer MEDICARE, OTHER, SELFPAY ==
[2020-10-04 11:23] LABS: Add Manual Diff / Slide Review NO; Basophils Absolute Auto 0 /uL (0-100); Basophils Percent Auto 0.6 % (0-2); Eosinophils Absolute Auto 0 /uL (0-450); Eosinophils Percent Auto 0.6 % (2-4); Hematocrit 31.6 % (36-46); Hemoglobin 10.7 g/dL (12.0-16.0); Lymphocytes Absolute Auto 1600 /uL (1100-4500); Lymphocytes Percent Auto 18.9 % (25-40); Mean Corpuscular HGB Conc 33.9 % (30-36); Mean Corpuscular Hemoglobin 30.1 PG (26-34); Mean Corpuscular Volume 88.7 fL (80-100); Monocytes Absolute Auto 500 /uL (0-900); Monocytes Percent Auto 6.2 % (3-14); Neutrophils Absolute Auto 6400 /uL (1500-7000); Neutrophils Percent Auto 73.7 % (50-75); Platelet Count 531 X10^3/uL (150-400); Red Blood Cell Count 3.56 X10^6/uL (4.0-5.2); Red Cell Distribution Width 14.8 % (11.6-14.8); White Blood Cell Count 8.6 X10^3/uL (4.5-11.0)
[2020-10-04 11:53] LABS: Alanine Aminotransferase 13 IU/L (<35); Aspartate Aminotransferase 23 IU/L (14-36)
== END ==
PROVIDERS: PCP Physician Assistant; Referring Provider Dentist; Visit Provider Dentist
DX: K12.1 Other forms of stomatitis (principal); K13.4 Granuloma and granuloma-like lesions of oral mucosa; R68.2 Dry mouth, unspecified
CPT/HCPCS: 36415; 84450; 84460; 85025

== ENCOUNTER → 2020-12-20 08:26 | Outpatient (CLI) | payer MEDICARE, OTHER, SELFPAY | PROVIDERS: PCP Physician Assistant; Referring Provider Dentist; Visit Provider Dentist | DX: K13.29 Other disturbances of oral epithelium, including tongue (principal); R68.2 Dry mouth, unspecified | CPT/HCPCS: 36415; 83519; 86255 ==

== ENCOUNTER → 2021-04-13 13:30 | Outpatient (CLI) | payer MEDICARE, OTHER, SELFPAY ==
[2021-04-13 15:27] LABS: Add Manual Diff / Slide Review NO; Basophils Absolute Auto 0 /uL (0-100); Basophils Percent Auto 0.3 % (0-2); Eosinophils Absolute Auto 100 /uL (0-450); Eosinophils Percent Auto 0.7 % (2-4); Hematocrit 33.1 % (36-46); Hemoglobin 11.4 g/dL (12.0-16.0); Lymphocytes Absolute Auto 1300 /uL (1100-4500); Mean Corpuscular HGB Conc 34.4 % (30-36); Mean Corpuscular Hemoglobin 33.1 PG (26-34); Mean Corpuscular Volume 96.2 fL (80-100); Monocytes Absolute Auto 800 /uL (0-900); Monocytes Percent Auto 9.6 % (3-14); Neutrophils Absolute Auto 6400 /uL (1500-7000); Neutrophils Percent Auto 74.4 % (50-75); Platelet Count 376 X10^3/uL (150-400); Red Blood Cell Count 3.44 X10^6/uL (4.0-5.2); Red Cell Distribution Width 13.7 % (11.6-14.8); White Blood Cell Count 8.6 X10^3/uL (4.5-11.0)
[2021-04-13 15:30] LABS: Alanine Aminotransferase 18 IU/L (<35); Albumin Globulin Ratio 1.5 (1.0-2.8); Alkaline Phosphatase 58 U/L (38-126); Aspartate Aminotransferase 27 IU/L (14-36); BUN Creatinine Ratio 20.2 (6-22); Bilirubin Total 0.4 mg/dL (0.2-1.3); Bilirubin Unconjugated 0.2 mg/dL (0.0-1.1); Blood Urea Nitrogen 17 mg/dL (7-17); Calcium 8.8 mg/dL (8.4-10.2); Carbon Dioxide 30 mmol/L (22-32); Chloride 99 mmol/L (98-107); Cholesterol 151 mg/dL (140-199); Estimated Glomerular Filt Rate > 60.0 mL/min (>60); Globulin 2.6 g/dL (1.7-4.1); Glucose 104 mg/dL (80-110); HDL Cholesterol 66 mg/dL (40-60); HEMOLYSIS < 15 (0-50); LDL Cholesterol Calculated 72 mg/dL (<100); Sodium 134 mmol/L (137-145); Total Protein 6.6 g/dL (6.3-8.2); Triglycerides 63 mg/dL (35-150)
[2021-04-14 08:35] LABS: RPR Screen Non Reactive (Non Reactive); Rubeola Measles IgG < 13.5 AU/mL (Immune >16.4)
[2021-04-14 12:16] LABS: Mumps Virus IgG Antibody 17.2 AU/mL (Immune >10.9)
[2021-04-14 20:02] LABS: Deamidated Gliadin Ab IgA 2 units (0-19); Deamidated Gliadin Ab IgG 1 units (0-19); Immunoglobulin A,Qn 127 mg/dL (64-422); t-Transglutaminase IgA <2 U/mL (0-3)
[2021-04-16 17:56] LABS: HIV 1 & 2 Ab/Ag 4th Gen Combo NEGATIVE (NEGATIVE); Hepatitis B Surface Antigen NEGATIVE s/c (NEGATIVE); Rubella Antibody IgG 90.3 IU/mL (>15)
== END ==
PROVIDERS: PCP Physician Assistant; Referring Provider Dentist; Visit Provider Dentist
DX: K13.29 Other disturbances of oral epithelium, including tongue (principal); R68.2 Dry mouth, unspecified
CPT/HCPCS: 36415; 80053; 80061; 80076; 82784; 83516; 85025; 86592; 86735; 86762; 86765; 86850; 86900; 86901; 87340; 87389

== ENCOUNTER → 2021-07-11 08:39 | Outpatient (CLI) | payer MEDICARE, OTHER, SELFPAY ==
[2021-07-11 10:04] LABS: TSH w/ Reflex to FT4 4.22 uIU/mL (0.47-4.68)
== END ==
PROVIDERS: PCP Physician Assistant; Referring Provider Physician Assistant; Visit Provider Physician Assistant
DX: E03.9 Hypothyroidism, unspecified (principal)
CPT/HCPCS: 36415; 84443

== ENCOUNTER 2021-08-16 13:38 | Emergency (ER) | payer MEDICARE, OTHER, SELFPAY ==
[2021-08-16] VITALS (11 sets, daily range): BP systolic 147–167; BP diastolic 67–96; PULSE 90–103; RESP 17–38; TEMP 36; O2SAT 99–100; BMI 25.7
[2021-08-16 14:07] LABS: Add Manual Diff / Slide Review NO; Basophils Absolute Auto 0 /uL (0-100); Basophils Percent Auto 0.3 % (0-2); Eosinophils Absolute Auto 0 /uL (0-450); Hematocrit 37.8 % (36-46); Hemoglobin 12.7 g/dL (12.0-16.0); Lymphocytes Absolute Auto 1200 /uL (1100-4500); Mean Corpuscular HGB Conc 33.6 % (30-36); Mean Corpuscular Hemoglobin 30.5 PG (26-34); Mean Corpuscular Volume 90.6 fL (80-100); Monocytes Absolute Auto 800 /uL (0-900); Monocytes Percent Auto 6.5 % (3-14); Neutrophils Absolute Auto 10300 /uL (1500-7000); Neutrophils Percent Auto 83.2 % (50-75); Platelet Count 469 X10^3/uL (150-400); Red Blood Cell Count 4.17 X10^6/uL (4.0-5.2); White Blood Cell Count 12.3 X10^3/uL (4.5-11.0)
[2021-08-16 14:25] LABS: Alanine Aminotransferase 19 IU/L (<35); Albumin 4.4 g/dL (3.5-5.0); Albumin Globulin Ratio 1.5 (1.0-2.8); Alkaline Phosphatase 66 U/L (38-126); Aspartate Aminotransferase 30 IU/L (14-36); BUN Creatinine Ratio 15.4 (6-22); Bilirubin Total 0.5 mg/dL (0.2-1.3); Blood Urea Nitrogen 8 mg/dL (7-17); Carbon Dioxide 26 mmol/L (22-32); Chloride 100 mmol/L (98-107); Creatine Kinase 67 U/L (30-135); Estimated Glomerular Filt Rate > 60 mL/min (>60); Glucose 145 mg/dL (80-110); HEMOLYSIS 35 (0-50); Lipase 42 U/L (23-300); Potassium 3.9 mmol/L (3.4-5.1); Sodium 135 mmol/L (137-145); Total Protein 7.4 g/dL (6.3-8.2)
[2021-08-16 14:36] LABS: Troponin I < 0.012 ng/mL (0.01-0.034)
--- NOTE | 2021-08-16 14:46 | ED_ITS ---
HPI - General Adult General Chief complaint: Dizziness Stated complaint: Low sodium levels- sent by Bernie Swartz Time Seen by Provider: 08/16/21 13:49 Source: patient Mode of arrival: Wheelchair Limitations: no limitations History of Present Illness HPI narrative: 81-year-old female who 5 days ago started to not feel very well. She describes fatigue and weakness. She saw her primary doctor earlier this week. Was started on hydroxyzine to take at night. She had blood drawn at the time as well. Afterwards she thought that her symptoms have worsened. She has also had diarrhea since the end of last week. No blood in his stool. Has had a history of irritable bowel in the past. She has been taking all of her medications as directed. She denies chest pain, shortness of breath, abdominal pain, urinary symptoms, rashes. No falls. She received a phone call today from her primary doctor telling her that her labs resulted in that her sodium was low. Then the patient stated that she thought that she was told that may be her thyroid levels were low. She was instructed to come to the emergency department. Related Data Home Medications Medication Instructions Recorded Confirmed aspirin 81 mg tablet 81 mg PO DAILY 02/14/20 05/21/21 atorvastatin 10 mg tablet 10 mg PO QPM 02/14/20 05/21/21 duloxetine 60 mg capsule,delayed 60 mg PO BID 02/14/20 05/21/21 release gabapentin 300 mg tablet 300 mg PO BID 02/14/20 05/21/21 hydrocortisone 2.5 % topical cream 1 applic topical BID 02/14/20 05/21/21 levothyroxine 88 mcg tablet 75 mcg PO DAILY 02/14/20 05/21/21 methocarbamol 750 mg tablet 750 mg PO Q6HR 02/14/20 05/21/21 oxycodone-acetaminophen 10 mg-325 2 tab PO Q6H PRN Pain (Scale Score 02/14/20 05/21/21 mg tablet 1-3) hyoscyamine sulfate 0.125 mg tablet 0.125 mg PO PRN PRN Unlisted 03/01/20 05/21/21 cevimeline 30 mg capsule 1 cap PO TID 06/05/20 05/21/21 amlodipine 5 mg tablet 10 mg PO DAILY 09/18/20 05/21/21 losartan 25 mg tablet 25 mg PO DAILY 09/18/20 05/21/21 medroxyprogesterone 5 mg tablet 5 mg PO DAILY 09/18/20 05/21/21 (Provera) pantoprazole 40 mg tablet,delayed 40 mg PO DAILY 12/11/20 05/21/21 release hydroxychloroquine 100 mg tablet 100 mg PO BID 02/08/21 05/21/21 estradiol 0.5 mg tablet 0.5 mg PO DAILY 05/21/21 05/21/21 Allergies Allergy/AdvReac Type Severity Reaction Status Date / Time cyclobenzaprine Allergy Unknown Verified 08/16/21 13:41 [From Flexeril] amitriptyline Allergy Verified 08/16/21 13:41 bupropion [From Wellbutrin] Allergy Verified 08/16/21 13:41 lisinopril Allergy Verified 08/16/21 13:41 nystatin Allergy Verified 08/16/21 13:41 Penicillins Allergy Verified 08/16/21 13:41 venlafaxine [From Effexor] Allergy Verified 08/16/21 13:41 Review of Systems Review of Systems ROS Unobtainable: All systems reviewed & are unremarkable except as noted in HPI and below Patient History Medical History Abdominal pain Arthritis Back pain Change in bowel habits Constipation Depression Diarrhea Early satiety Edema Esophageal dysphagia GERD (gastroesophageal reflux disease) Heartburn Hyperlipidemia Hypothyroidism Joint stiffness Muscle pain Vaginal itching Surgical History (Updated 03/27/20 @ 11:01 by Zhang Romero MD) H/O right knee surgery H/O tubal ligation History of bilateral tubal ligation History of colonoscopy History of esophagogastroduodenoscopy (EGD) Family History Unknown Breast cancer Social History household members: other Smoking Status: Former smoker alcohol intake: never substance use type: does not use Smoking Status: Former smoker alcohol intake frequency: holidays/special occasions only Substance Use Type: does not use Exam Initial Vital Signs Initial Vital Signs: Vital Signs Temperature 96.8 F L 08/16/21 13:41 Pulse Rate 93 H 08/16/21 13:41 Respiratory Rate 17 08/16/21 13:41 Blood Pressure 148/67 H 08/16/21 13:41 Pulse Oximetry 100 08/16/21 13:41 Oxygen Delivery Method 08/16/21 13:41 Const General: cooperative and comfortable HENMT Head: normal to inspection and normocephalic Resp Effort & Inspection: normal respiratory effort Auscultation: clear to auscultation bilaterally Cardio Rate: regular rate Rhythm: regular rhythm GI Inspection: normal to inspection Palpation: soft and No tender Skin General: no rashes or lesions noted Neuro General: patient alert, patient awake, patient oriented x3 and moves all extremities Speech: speech normal Extrem General: normal to inspection and capillary refill normal Psych Appearance: grossly normal and well kempt Scores GCS [place] coma scale eye opening: Spontaneous [place] coma scale verbal response: Orientated [place] coma scale motor response: Obey commands [place] coma scale total score: 15 Course Orders Ordered: ED Orders 08/16/21 13:56 Complete Blood Count AUTO DIFF Stat Comprehensive Metabolic Panel Stat Lipase Stat TSH [Thyroid Stimulating Hormone] Stat Troponin & CK Cardiac Panel Stat EKG-12 Lead Stat 08/16/21 14:52 Covid-19 + FLU A/B by PCR Stat 08/16/21 15:50 Urine Culture Stat Urine Microscopic Stat Discontinued Medications Sodium Chloride (Normal Saline 0.9%) 1,000 mls @ 500 mls/hr IV BOLUS ONE Stop: 08/16/21 16:45 Last Admin: 08/16/21 14:55 Dose: 500 mls/hr Documented By: CAN Vital Signs Vital signs: Vital Signs - 8 hr 08/16/21 13:41 08/16/21 13:49 08/16/21 13:51 Temperature 96.8 F L Pulse Rate 93 H 103 H 96 H Respiratory Rate 17 38 H 31 H Blood Pressure 148/67 H Pulse Oximetry 100 100 Oxygen Delivery Method Room Air 08/16/21 13:51 08/16/21 14:00 08/16/21 14:00 Temperature Pulse Rate 90 Respiratory Rate 32 H Blood Pressure 147/74 H 157/69 H Pulse Oximetry 100 Oxygen Delivery Method 08/16/21 14:30 08/16/21 14:31 08/16/21 14:31 Temperature Pulse Rate 96 H 103 H Respiratory Rate Blood Pressure 164/75 H Pulse Oximetry 100 99 Oxygen Delivery Method 08/16/21 15:00 08/16/21 15:01 08/16/21 15:01 Temperature Pulse Rate 92 H 92 H Respiratory Rate Blood Pressure 156/96 H Pulse Oximetry 100 100 Oxygen Delivery Method 08/16/21 15:30 08/16/21 15:30 08/16/21 16:00 Temperature Pulse Rate 94 H 97 H Respiratory Rate Blood Pressure 167/85 H Pulse Oximetry 99 100 Oxygen Delivery Method 08/16/21 16:30 Temperature Pulse Rate 103 H Respiratory Rate Blood Pressure Pulse Oximetry 99 Oxygen Delivery Method Medical Decision Making Medical Records Medical records reviewed: Yes I reviewed the patient's medical records. Lab Data Lab results reviewed: Yes I reviewed the patient's lab results. Result diagrams: 08/16/21 13:56 08/16/21 13:56 Labs: Lab Results 08/16/21 08/16/21 08/16/21 Range/Units 13:56 13:56 13:56 WBC 12.3 H (4.5-11.0) X10^3/uL RBC 4.17 (4.0-5.2) X10^6/uL Hgb 12.7 (12.0-16.0) g/dL Hct 37.8 (36-46) % MCV 90.6 (80-100) fL MCH 30.5 (26-34) PG MCHC 33.6 (30-36) % RDW 13.0 (11.6-14.8) % Plt Count 469 H (150-400) X10^3/uL Neut % (Auto) 83.2 H (50-75) % Lymph % (Auto) 10.0 L (25-40) % Nance % (Auto) 6.5 (3-14) % Eos % (Auto) 0.0 L (2-4) % Baso % (Auto) 0.3 (0-2) % Neut # (Auto) 22155 H (1148-8758) /uL Lymph # (Auto) 1200 (1001-2398) /uL Nance # (Auto) 800 (0-900) /uL Eos # (Auto) 0 (0-450) /uL Baso # (Auto) 0 (0-100) /uL Sodium 135 L (137-145) mmol/L Potassium 3.9 (3.4-5.1) mmol/L Chloride 100 (98-107) mmol/L Carbon Dioxide 26 (22-32) mmol/L BUN 8 (7-17) mg/dL Creatinine 0.52 (0.52-1.04) mg/dL Estimated GFR > 60 (>60) mL/min BUN/Creatinine Ratio 15.4 (6-22) Glucose 145 H (80-110) mg/dL Calcium 9.0 (8.4-10.2) mg/dL Total Bilirubin 0.5 (0.2-1.3) mg/dL AST 30 (14-36) IU/L ALT 19 (<35) IU/L Alkaline Phosphatase 66 (38-126) U/L Total Creatine Kinase 67 (30-135) U/L CK-MB (CK-2) TNP CK-MB (CK-2) Rel Index TNP Troponin I < 0.012 (0.01-0.034) ng/mL Total Protein 7.4 (6.3-8.2) g/dL Albumin 4.4 (3.5-5.0) g/dL Globulin 3.0 (1.7-4.1) g/dL Albumin/Globulin Ratio 1.5 (1.0-2.8) Lipase 42 (23-300) U/L TSH 1.68 (0.47-4.68) uIU/mL Urine RBC (0-5/HPF) Urine WBC (0-5/HPF) Ur Squamous Epith Cells (0-5/HPF) Urine Bacteria (None) Ur Culture Indicated? SARS-CoV-2 (PCR) (Negative) Influenza A (RT-PCR) (NEGATIVE) Influenza B (RT-PCR) (NEGATIVE) 08/16/21 08/16/21 Range/Units 14:52 15:50 WBC (4.5-11.0) X10^3/uL RBC (4.0-5.2) X10^6/uL Hgb (12.0-16.0) g/dL Hct (36-46) % MCV (80-100) fL MCH (26-34) PG MCHC (30-36) % RDW (11.6-14.8) % Plt Count (150-400) X10^3/uL Neut % (Auto) (50-75) % Lymph % (Auto) (25-40) % Nance % (Auto) (3-14) % Eos % (Auto) (2-4) % Baso % (Auto) (0-2) % Neut # (Auto) (0619-8865) /uL Lymph # (Auto) (8617-5460) /uL Nance # (Auto) (0-900) /uL Eos # (Auto) (0-450) /uL Baso # (Auto) (0-100) /uL Sodium (137-145) mmol/L Potassium (3.4-5.1) mmol/L Chloride (98-107) mmol/L Carbon Dioxide (22-32) mmol/L BUN (7-17) mg/dL Creatinine (0.52-1.04) mg/dL Estimated GFR (>60) mL/min BUN/Creatinine Ratio (6-22) Glucose (80-110) mg/dL Calcium (8.4-10.2) mg/dL Total Bilirubin (0.2-1.3) mg/dL AST (14-36) IU/L ALT (<35) IU/L Alkaline Phosphatase (38-126) U/L Total Creatine Kinase (30-135) U/L CK-MB (CK-2) CK-MB (CK-2) Rel Index Troponin I (0.01-0.034) ng/mL Total Protein (6.3-8.2) g/dL Albumin (3.5-5.0) g/dL Globulin (1.7-4.1) g/dL Albumin/Globulin Ratio (1.0-2.8) Lipase (23-300) U/L TSH (0.47-4.68) uIU/mL Urine RBC 0-1/hpf (0-5/HPF) Urine WBC 5-10/hpf H (0-5/HPF) Ur Squamous Epith Cells 0-1 /hpf (0-5/HPF) Urine Bacteria None seen (None) Ur Culture Indicated? Specimen cultured SARS-CoV-2 (PCR) Negative (Negative) Influenza A (RT-PCR) Flu a negative (NEGATIVE) Influenza B (RT-PCR) Flu b negative (NEGATIVE) Urine Dip Bedside Urine Glucose Negative Bedside Urine Bilirubin - Negative Bedside Urine Ketone +/- 5 Urine Specific [place] 1.005 Bedside Urine Occult Blood - Negative Bedside Urine pH 8.5 Bedside Urine Protein +/- 15 Bedside Urine Urobilinogen - Negative Bedside Urine Nitrite - Negative Bedside Urine Leukocytes +/- 15 Esterase Point of care testing: Urine Dip Bedside Urine Glucose Negative Bedside Urine Bilirubin - Negative Bedside Urine Ketone +/- 5 Urine Specific [place] 1.005 Bedside Urine Occult Blood - Negative Bedside Urine pH 8.5 Bedside Urine Protein +/- 15 Bedside Urine Urobilinogen - Negative Bedside Urine Nitrite - Negative Bedside Urine Leukocytes +/- 15 Esterase ECG Data Attestation: I personally reviewed and interpreted this ECG as follows: Interpretation: Sinus rhythm Ventricular rate 94 Sinus rhythm at Frequent PVCs Normal QRS Normal QTC No ST T wave changes MDM Narrative Medical decision making narrative: Initially we did not have the patient's out patient's labs available to review. Her sodium today and her thyroid level today are unremarkable. There is no signs of any infection. She does have leukocytosis but she is also having diarrhea and there is no other indication of any infection. Her COVID is negative. Flu is negative. Low suspicion for pneumonia given her presentation. We were able to obtain her outpatient labs and her sodium was 129. It does appear that her symptoms have worsened after starting the Vistaril. This could potentially be some issues with her presenting symptoms. No indication for antibiotics. No indication for admission the hospital. Will have her stop the visceral and see if this does not improve. She is also feeling better after fluids. She was given return precautions and follow-up instructions. She expressed understanding and agreement. Discharge Plan Departure Patient Disposition: Home Clinical Impression: Fatigue Instructions: DI for Fatigue Activity Restrictions/Additional Instructions: I do recommend that you stop taking the hydroxyzine/Vistaril as this seems to be associated with a worsening of your symptoms and it certainly can make you very drowsy and fatigued. Continue the rest of your medications as directed. Contact your primary doctor for a follow-up. Return to the emergency department for any new or worsening symptoms. Prescriptions: No Action atorvastatin 10 mg Tablet 10 mg PO QPM levothyroxine 88 mcg Tablet 75 mcg PO DAILY methocarbamol 750 mg Tablet 750 mg PO Q6HR oxycodone-acetaminophen 10-325 mg Tablet 2 tab PO Q6H PRN (Reason: Pain (Scale Score 1-3)) hydrocortisone 2.5 % Cream 1 applic TOPICAL BID aspirin 81 mg Tablet 81 mg PO DAILY duloxetine 60 mg Capsule,Delayed Release(Dr/Ec) 60 mg PO BID gabapentin 300 mg Tablet 300 mg PO BID cevimeline 30 mg Capsule 1 cap PO TID medroxyprogesterone [Provera] 5 mg Tablet 5 mg PO DAILY losartan 25 mg Tablet 25 mg PO DAILY amlodipine 5 mg tablet 10 mg PO DAILY pantoprazole 40 mg Tablet,Delayed Release (Dr/Ec) 40 mg PO DAILY hydroxychloroquine 100 mg Tablet 100 mg PO BID estradiol 0.5 mg Tablet 0.5 mg PO DAILY Rx Instructions: off 5 days; repeat cycle hyoscyamine sulfate 0.125 mg Tablet 0.125 mg PO PRN PRN (Reason: Unlisted) Referrals: Bernie Swartz PA-C [Primary Care Provider] - Visit Report Forms: Patient Portal/API
[2021-08-16] MEDS: SODIUM CHLORIDE 0.9% 1,000 ML 500 ML IV (14:55)
[2021-08-16 15:28] LABS: Thyroid Stimulating Hormone 1.68 uIU/mL (0.47-4.68)
[2021-08-16 15:36] LABS: Influenza A - CEPHEID Flu A NEGATIVE (NEGATIVE); Influenza B - CEPHEID Flu B NEGATIVE (NEGATIVE)
[2021-08-16 15:44] LABS: COVID-19 CEPHEID PCR (VTM/NP) Negative (Negative)
[2021-08-16 16:24] LABS: Bacteria Urine None Seen; RBC Urine 0-1/HPF (0-5/HPF); Squamous Epithelial Cell Urine 0-1 /HPF (0-5/HPF); WBC Urine 5-10/HPF (0-5/HPF)
[2021-08-16 16:25] LABS: Culture Indicated Urine Specimen Cultured
== END 2021-08-16 16:58 | disposition home or self-care (01) ==
PROVIDERS: Emergency Provider Emergency Medicine; PCP Physician Assistant
DX: R53.83 Other fatigue (principal); R19.7 Diarrhea, unspecified; Z20.822 Contact with and (suspected) exposure to COVID-19
CPT/HCPCS: 36415; 80053; 81003; 81015; 82550; 83690; 84443; 84484; 85025; 87086; 87635; 93005; 99284; C9803

== ENCOUNTER 2021-08-17 11:21 | Emergency (ER) | payer MEDICARE, OTHER, SELFPAY ==
[2021-08-17] VITALS (10 sets, daily range): BP systolic 140–187; BP diastolic 60–80; PULSE 83–93; RESP 16–18; TEMP 36.4; O2SAT 96–100; BMI 25.2
--- NOTE | 2021-08-17 11:35 | DI.RAD.S_ITS ---
PROCEDURE: XR CHEST 1V INDICATIONS: chest pain TECHNIQUE: One view of the chest was acquired. COMPARISON: [facility], CR, XR CHEST 1V, 02/21/2020, 17:09. FINDINGS: Surgical changes and devices: None. Lungs and pleura: Lungs are clear. No pleural effusions or pneumothorax. Mediastinum: Mediastinal contours appear normal. Heart size is normal. Bones and chest wall: No suspicious bony lesions. Overlying soft tissues appear unremarkable. IMPRESSION: Stable radiographic evaluation of the chest without acute cardiopulmonary abnormalities or focal airspace disease. Dictated by: Austin Downey M.D. on 08/17/2021 at 12:01 Approved by: Austin Downey M.D. on 08/17/2021 at 12:02
[2021-08-17 11:56] LABS: Add Manual Diff / Slide Review NO; Basophils Absolute Auto 0 /uL (0-100); Basophils Percent Auto 0.3 % (0-2); Eosinophils Absolute Auto 0 /uL (0-450); Hematocrit 39.9 % (36-46); Hemoglobin 13.4 g/dL (12.0-16.0); Lymphocytes Absolute Auto 1400 /uL (1100-4500); Lymphocytes Percent Auto 21.2 % (25-40); Mean Corpuscular HGB Conc 33.7 % (30-36); Mean Corpuscular Hemoglobin 30.6 PG (26-34); Mean Corpuscular Volume 90.7 fL (80-100); Monocytes Absolute Auto 500 /uL (0-900); Monocytes Percent Auto 7.2 % (3-14); Neutrophils Absolute Auto 4900 /uL (1500-7000); Neutrophils Percent Auto 71.3 % (50-75); Platelet Count 500 X10^3/uL (150-400); Red Blood Cell Count 4.39 X10^6/uL (4.0-5.2); Red Cell Distribution Width 13.1 % (11.6-14.8); White Blood Cell Count 6.8 X10^3/uL (4.5-11.0)
[2021-08-17] MEDS: SODIUM CHLORIDE 0.9% 1,000 ML 1000 ML IV (12:04)
--- NOTE | 2021-08-17 12:07 | ED_ITS ---
HPI - Nausea/Vomiting/Diarrhea General Chief complaint: Nausea/Vomiting/Diarrhea Stated complaint: continued diarrhea seen here yesterday Time Seen by Provider: 08/17/21 11:25 Source: patient Mode of arrival: Wheelchair History of Present Illness HPI Narrative: Patient is a 81-year-old female who was seen here in the emergency department yesterday by myself for evaluation of fatigue and diarrhea. She received fluids. Was discharged home feeling better. States that overnight she continue to have multiple episodes of diarrhea. No fevers. Is having some abdominal pain but it is cramping. No urinary symptoms. No vomiting. She states she did feels very poorly overall. She does have a history of ulcerative colitis. Related Data Home Medications Medication Instructions Recorded Confirmed aspirin 81 mg tablet 81 mg PO DAILY 02/14/20 05/21/21 atorvastatin 10 mg tablet 10 mg PO QPM 02/14/20 05/21/21 duloxetine 60 mg capsule,delayed 60 mg PO BID 02/14/20 05/21/21 release gabapentin 300 mg tablet 300 mg PO BID 02/14/20 05/21/21 hydrocortisone 2.5 % topical cream 1 applic topical BID 02/14/20 05/21/21 levothyroxine 88 mcg tablet 75 mcg PO DAILY 02/14/20 05/21/21 methocarbamol 750 mg tablet 750 mg PO Q6HR 02/14/20 05/21/21 oxycodone-acetaminophen 10 mg-325 2 tab PO Q6H PRN Pain (Scale Score 02/14/20 05/21/21 mg tablet 1-3) hyoscyamine sulfate 0.125 mg tablet 0.125 mg PO PRN PRN Unlisted 03/01/20 05/21/21 cevimeline 30 mg capsule 1 cap PO TID 06/05/20 05/21/21 amlodipine 5 mg tablet 10 mg PO DAILY 09/18/20 05/21/21 losartan 25 mg tablet 25 mg PO DAILY 09/18/20 05/21/21 medroxyprogesterone 5 mg tablet 5 mg PO DAILY 09/18/20 05/21/21 (Provera) pantoprazole 40 mg tablet,delayed 40 mg PO DAILY 12/11/20 05/21/21 release hydroxychloroquine 100 mg tablet 100 mg PO BID 02/08/21 05/21/21 estradiol 0.5 mg tablet 0.5 mg PO DAILY 05/21/21 05/21/21 Previous Rx's Medication Instructions Recorded dicyclomine 10 mg capsule 10 mg PO BID #14 caps 08/17/21 vancomycin 125 mg capsule 125 mg PO QID 14 days #56 caps 08/17/21 Allergies Allergy/AdvReac Type Severity Reaction Status Date / Time cyclobenzaprine Allergy Unknown Verified 08/16/21 13:41 [From Flexeril] amitriptyline Allergy Verified 08/16/21 13:41 bupropion [From Wellbutrin] Allergy Verified 08/16/21 13:41 lisinopril Allergy Verified 08/16/21 13:41 nystatin Allergy Verified 08/16/21 13:41 Penicillins Allergy Verified 08/16/21 13:41 venlafaxine [From Effexor] Allergy Verified 08/16/21 13:41 Review of Systems Constitutional Constitutional: Denies fever(s) Cardiovascular Cardiovascular: Reports as per HPI and Reports system reviewed and no additional complaints, except as documented Respiratory Respiratory: Reports as per HPI and Reports system reviewed and no additional complaints, except as documented Gastrointestinal Gastrointestinal: Denies melena, Denies hematochezia, Reports cramping, Reports diarrhea, Denies nausea and Denies vomiting Genitourinary Genitourinary: Denies dysuria Integumentary/Breasts Skin/Breast: Reports system reviewed and no additional complaints, except as documented Neurologic Neurologic: Reports system reviewed and no additional complaints, except as documented Hematologic/Lymphatic On Anticoagulants: No Patient History Medical History Abdominal pain Arthritis Back pain Change in bowel habits Constipation Depression Diarrhea Early satiety Edema Esophageal dysphagia GERD (gastroesophageal reflux disease) Heartburn Hyperlipidemia Hypothyroidism Joint stiffness Muscle pain Vaginal itching Surgical History (Updated 03/27/20 @ 11:01 by Zhang Romero MD) H/O right knee surgery H/O tubal ligation History of bilateral tubal ligation History of colonoscopy History of esophagogastroduodenoscopy (EGD) Family History Unknown Breast cancer Social History household members: other Smoking Status: Former smoker alcohol intake: never substance use type: does not use Smoking Status: Former smoker alcohol intake frequency: holidays/special occasions only Substance Use Type: does not use Exam Initial Vital Signs Initial Vital Signs: Vital Signs Temperature 97.6 F 08/17/21 11:25 Pulse Rate 90 08/17/21 11:25 Respiratory Rate 18 08/17/21 11:25 Blood Pressure 151/71 H 08/17/21 11:25 Pulse Oximetry 99 08/17/21 11:25 Oxygen Delivery Method 08/17/21 11:25 Const General: cooperative and healthy appearing [facility] Head: normal to inspection and normocephalic Resp Effort & Inspection: normal respiratory effort Auscultation: clear to auscultation bilaterally Cardio Rate: regular rate Rhythm: regular rhythm GI Inspection: normal to inspection Palpation: soft and No guarding Skin General: no rashes or lesions noted Neuro General: patient alert, patient awake, patient oriented x3 and moves all extremities Extrem General: normal to inspection and capillary refill normal Psych Appearance: grossly normal and well kempt Course Orders Ordered: ED Orders 08/17/21 11:35 XR chest 1V Stat Complete Blood Count AUTO DIFF Stat Comprehensive Metabolic Panel Stat Lipase Stat Magnesium Stat Troponin & CK Cardiac Panel Stat EKG-12 Lead Stat 08/17/21 11:55 GI Panel (Film Array) Stat 08/17/21 12:22 Ictotest Urine Stat Urine Culture Stat Urine Microscopic Stat 08/17/21 16:20 GI Panel (Film Array) Stat Sodium Chloride (Normal Saline 0.9%) 1,000 mls @ 150 mls/hr IV CONT ANUPAM Last Admin: 08/17/21 17:00 Dose: 150 mls/hr Documented By: PASHA Discontinued Medications Sodium Chloride (Normal Saline 0.9%) 1,000 mls @ 1,000 mls/hr IV BOLUS ONE Stop: 08/17/21 12:42 Last Infusion: 08/17/21 13:16 Dose: 0 mls/hr Documented By: Admin: 08/17/21 12:04 Dose: 1,000 mls/hr Documented By: PASHA Vancomycin HCl (Vancomycin 125 Mg Capsule) 125 mg PO NOW ONE Stop: 08/17/21 18:11 Vital Signs Vital signs: Vital Signs - 8 hr 08/17/21 11:25 08/17/21 11:28 08/17/21 11:29 Temperature 97.6 F Pulse Rate 90 86 Respiratory Rate 18 Blood Pressure 151/71 H 151/71 H Pulse Oximetry 99 96 Oxygen Delivery Method Room Air 08/17/21 11:29 08/17/21 11:30 08/17/21 11:57 Temperature Pulse Rate 91 H 93 H Respiratory Rate Blood Pressure 164/70 H Pulse Oximetry 99 100 Oxygen Delivery Method 08/17/21 11:57 08/17/21 12:00 08/17/21 12:00 Temperature Pulse Rate 91 H 87 Respiratory Rate 18 18 Blood Pressure 146/67 H 146/60 H Pulse Oximetry 96 100 Oxygen Delivery Method 08/17/21 13:15 08/17/21 14:10 08/17/21 17:24 Temperature Pulse Rate 85 85 83 Respiratory Rate 18 18 18 Blood Pressure 140/60 187/80 H 151/69 H Pulse Oximetry 96 97 99 Oxygen Delivery Method Room Air MDM - Nausea/Vomiting/Diarrhea Lab Data Attestation: I reviewed the patient's lab results. Result diagrams: 08/17/21 11:35 08/17/21 11:35 Labs: Lab Results 08/17/21 08/17/21 08/17/21 Range/Units 11:35 11:35 11:55 WBC 6.8 (4.5-11.0) X10^3/uL RBC 4.39 (4.0-5.2) X10^6/uL Hgb 13.4 (12.0-16.0) g/dL Hct 39.9 (36-46) % MCV 90.7 (80-100) fL MCH 30.6 (26-34) PG MCHC 33.7 (30-36) % RDW 13.1 (11.6-14.8) % Plt Count 500 H (150-400) X10^3/uL Neut % (Auto) 71.3 (50-75) % Lymph % (Auto) 21.2 L (25-40) % [place] % (Auto) 7.2 (3-14) % Eos % (Auto) 0.0 L (2-4) % Baso % (Auto) 0.3 (0-2) % Neut # (Auto) 4900 (6486-6402) /uL Lymph # (Auto) 1400 (7141-9914) /uL [place] # (Auto) 500 (0-900) /uL Eos # (Auto) 0 (0-450) /uL Baso # (Auto) 0 (0-100) /uL Sodium 135 L (137-145) mmol/L Potassium 3.7 (3.4-5.1) mmol/L Chloride 102 (98-107) mmol/L Carbon Dioxide 23 (22-32) mmol/L BUN 5 L (7-17) mg/dL Creatinine 0.61 (0.52-1.04) mg/dL Estimated GFR > 60 (>60) mL/min BUN/Creatinine Ratio 8.2 (6-22) Glucose 165 H (80-110) mg/dL Calcium 9.1 (8.4-10.2) mg/dL Magnesium 1.8 (1.6-2.3) mg/dL Total Bilirubin 0.5 (0.2-1.3) mg/dL AST 25 (14-36) IU/L ALT 18 (<35) IU/L Alkaline Phosphatase 79 (38-126) U/L Total Creatine Kinase 70 (30-135) U/L CK-MB (CK-2) TNP CK-MB (CK-2) Rel Index TNP Troponin I < 0.012 (0.01-0.034) ng/mL Total Protein 7.6 (6.3-8.2) g/dL Albumin 4.5 (3.5-5.0) g/dL Globulin 3.1 (1.7-4.1) g/dL Albumin/Globulin Ratio 1.5 (1.0-2.8) Lipase 66 D (23-300) U/L Ur Bilirubin Confirm (Negative) Urine RBC (0-5/HPF) Urine WBC (0-5/HPF) Ur Squamous Epith Cells (0-5/HPF) Amorphous Sediment Urine Bacteria (None) Urine Mucus (Negative) Ur Culture Indicated? Stl C. cayetanensis PCR Not detected (Not Detect) Stool Rotavirus (PCR) Not detected (Not Detect) Stool Adenovirus (PCR) Not detected (Not Detect) Stool Astrovirus (PCR) Not detected (Not Detect) Stool Cryptosporidium PCR Not detected (Not Detect) Stl E.coli Shiga Tox PCR Detected H (Not Detect) St Sh/Enteroin Ecoli PCR Not detected (Not Detect) Stool E coli O157 PCR TNP Stl Enterotoxigenic E PCR Detected H (Not Detect) Stool EPEC (PCR) Detected H (Not Detect) Stl E. histolytica PCR Not detected (Not Detect) Stool Giardia Lamblia PCR Not detected (Not Detect) Stool Sapovirus (PCR) Not detected (Not Detect) Stl P. shigelloides PCR Detected H (Not Detect) St Y.enterocolitica PCR Detected H (Not Detect) Stool Vibrio (PCR) Detected H (Not Detect) Stl Vibrio cholerae PCR Detected H (Not Detect) Stl Enteroaggr Ecoli PCR Detected H (Not Detect) Stl Norovirus GI/GII PCR Detected H (Not Detect) Campylobacter (PCR) Not detected (Not Detect) C. difficile Tox (PCR) Detected H (Not Detect) Salmonella (PCR) Detected H (Not Detect) 08/17/21 08/17/21 Range/Units 12:22 16:20 WBC (4.5-11.0) X10^3/uL RBC (4.0-5.2) X10^6/uL Hgb (12.0-16.0) g/dL Hct (36-46) % MCV (80-100) fL MCH (26-34) PG MCHC (30-36) % RDW (11.6-14.8) % Plt Count (150-400) X10^3/uL Neut % (Auto) (50-75) % Lymph % (Auto) (25-40) % [place] % (Auto) (3-14) % Eos % (Auto) (2-4) % Baso % (Auto) (0-2) % Neut # (Auto) (7754-5154) /uL Lymph # (Auto) (5108-7640) /uL [place] # (Auto) (0-900) /uL Eos # (Auto) (0-450) /uL Baso # (Auto) (0-100) /uL Sodium (137-145) mmol/L Potassium (3.4-5.1) mmol/L Chloride (98-107) mmol/L Carbon Dioxide (22-32) mmol/L BUN (7-17) mg/dL Creatinine (0.52-1.04) mg/dL Estimated GFR (>60) mL/min BUN/Creatinine Ratio (6-22) Glucose (80-110) mg/dL Calcium (8.4-10.2) mg/dL Magnesium (1.6-2.3) mg/dL Total Bilirubin (0.2-1.3) mg/dL AST (14-36) IU/L ALT (<35) IU/L Alkaline Phosphatase (38-126) U/L Total Creatine Kinase (30-135) U/L CK-MB (CK-2) CK-MB (CK-2) Rel Index Troponin I (0.01-0.034) ng/mL Total Protein (6.3-8.2) g/dL Albumin (3.5-5.0) g/dL Globulin (1.7-4.1) g/dL Albumin/Globulin Ratio (1.0-2.8) Lipase (23-300) U/L Ur Bilirubin Confirm Negative (Negative) Urine RBC None seen (0-5/HPF) Urine WBC 30-100/hpf H D (0-5/HPF) Ur Squamous Epith Cells 5-10 /hpf H (0-5/HPF) Amorphous Sediment 1+ Urine Bacteria Many (>30) H D (None) Urine Mucus 2+ H (Negative) Ur Culture Indicated? Culture not indicate Stl C. cayetanensis PCR Not detected (Not Detect) Stool Rotavirus (PCR) Not detected (Not Detect) Stool Adenovirus (PCR) Not detected (Not Detect) Stool Astrovirus (PCR) Not detected (Not Detect) Stool Cryptosporidium PCR Not detected (Not Detect) Stl E.coli Shiga Tox PCR Not detected (Not Detect) St Sh/Enteroin Ecoli PCR Not detected (Not Detect) Stool E coli O157 PCR Not detected Stl Enterotoxigenic E PCR Not detected (Not Detect) Stool EPEC (PCR) Not detected (Not Detect) Stl E. histolytica PCR Not detected (Not Detect) Stool Giardia Lamblia PCR Not detected (Not Detect) Stool Sapovirus (PCR) Not detected (Not Detect) Stl P. shigelloides PCR Not detected (Not Detect) St Y.enterocolitica PCR Not detected (Not Detect) Stool Vibrio (PCR) Not detected (Not Detect) Stl Vibrio cholerae PCR Not detected (Not Detect) Stl Enteroaggr Ecoli PCR Not detected (Not Detect) Stl Norovirus GI/GII PCR Not detected (Not Detect) Campylobacter (PCR) Not detected (Not Detect) C. difficile Tox (PCR) Detected H (Not Detect) Salmonella (PCR) Not detected (Not Detect) Urine Dip Bedside Urine Glucose Negative Bedside Urine Bilirubin ++ 2 Bedside Urine Ketone +/- 5 Urine Specific [place] 1.010 Bedside Urine Occult Blood - Negative Bedside Urine pH 7.5 Bedside Urine Protein ++ 100 Bedside Urine Urobilinogen - Negative Bedside Urine Nitrite - Negative Bedside Urine Leukocytes +++ 500 Esterase Imaging Data Chest x-ray: Radiologist's Impression: [address] [address] XRay Report Signed Patient: Charlotte Romero MR#: [id number] : 1940 Acct:[id number] Age/Sex: 81 / F Date of Service: 08/17/21 Loc: ED Accession Number: [id number] ?? Procedure: XR chest 1V Ordering Provider: Leroy Morris D.O. PROCEDURE:? XR CHEST 1V ? INDICATIONS:? chest pain ? TECHNIQUE:? One view of the chest was acquired.? ? COMPARISON:? [facility], CR, XR CHEST 1V, 02/21/2020, 17:09. ? FINDINGS:? ? Surgical changes and devices:? None.? ? Lungs and pleura:? Lungs are clear.? No pleural effusions or pneumothorax.? ? Mediastinum:? Mediastinal contours appear normal.? Heart size is normal.? ? Bones and chest wall:? No suspicious bony lesions.? Overlying soft tissues appear unremarkable.? ? IMPRESSION:? Stable radiographic evaluation of the chest without acute cardiopulmonary abnormalities or focal airspace disease. ? ? ? Dictated by: Austin Downey M.D. on 08/17/2021 at 12:01 ? ? Approved by: Austin Downey M.D. on 08/17/2021 at 12:02 ECG Data Attestation: I personally reviewed and interpreted this ECG as follows: Interpretation: Sinus rhythm Ventricular rate 82 PVCs Normal QRS Normal QTC No ST T wave changes MDM Narrative Medical decision making narrative: Patient is nontoxic appearing. Is afebrile. No leukocytosis. Initial stool sample had multiple positive results however upon further evaluation it was found that the sample was taken directly from the bedside commode but it did not from a collection hat. A repeat sample was collected and was positive for C diff which is more consistent with her presentation. I do feel that we can hold any radiologic studies for now. Will start her on oral vancomycin and she was given a 1st dose here in the ER. And a prescription was sent to the pharmacy of her choice. No indication for admission the hospital. She was given strict return precautions. She expressed understanding and agreement. Discharge Plan Departure Patient Disposition: Home Clinical Impression: Clostridium difficile infection Instructions: Clostridium difficile Infection Activity Restrictions/Additional Instructions: It is important that you take the antibiotics as directed. Contact your primary doctor for a follow-up. Be sure to increase your fluid intake. Return to the emergency department for any new or worsening symptoms. Prescriptions: New vancomycin 125 mg capsule 125 mg PO QID 14 Days Qty: 56 0RF dicyclomine 10 mg capsule 10 mg PO BID Qty: 14 0RF No Action atorvastatin 10 mg Tablet 10 mg PO QPM levothyroxine 88 mcg Tablet 75 mcg PO DAILY methocarbamol 750 mg Tablet 750 mg PO Q6HR oxycodone-acetaminophen 10-325 mg Tablet 2 tab PO Q6H PRN (Reason: Pain (Scale Score 1-3)) hydrocortisone 2.5 % Cream 1 applic TOPICAL BID aspirin 81 mg Tablet 81 mg PO DAILY duloxetine 60 mg Capsule,Delayed Release(Dr/Ec) 60 mg PO BID gabapentin 300 mg Tablet 300 mg PO BID cevimeline 30 mg Capsule 1 cap PO TID medroxyprogesterone [Provera] 5 mg Tablet 5 mg PO DAILY losartan 25 mg Tablet 25 mg PO DAILY amlodipine 5 mg tablet 10 mg PO DAILY pantoprazole 40 mg Tablet,Delayed Release (Dr/Ec) 40 mg PO DAILY hydroxychloroquine 100 mg Tablet 100 mg PO BID estradiol 0.5 mg Tablet 0.5 mg PO DAILY Rx Instructions: off 5 days; repeat cycle hyoscyamine sulfate 0.125 mg Tablet 0.125 mg PO PRN PRN (Reason: Unlisted) Referrals: Bernie Swartz PA-C [Primary Care Provider] -
[2021-08-17 12:09] LABS: Alanine Aminotransferase 18 IU/L (<35); Albumin 4.5 g/dL (3.5-5.0); Albumin Globulin Ratio 1.5 (1.0-2.8); Alkaline Phosphatase 79 U/L (38-126); Aspartate Aminotransferase 25 IU/L (14-36); BUN Creatinine Ratio 8.2 (6-22); Bilirubin Total 0.5 mg/dL (0.2-1.3); Blood Urea Nitrogen 5 mg/dL (7-17); Calcium 9.1 mg/dL (8.4-10.2); Carbon Dioxide 23 mmol/L (22-32); Chloride 102 mmol/L (98-107); Creatine Kinase 70 U/L (30-135); Estimated Glomerular Filt Rate > 60 mL/min (>60); Globulin 3.1 g/dL (1.7-4.1); Glucose 165 mg/dL (80-110); HEMOLYSIS < 15 (0-50); Lipase 66 U/L (23-300); Magnesium 1.8 mg/dL (1.6-2.3); Potassium 3.7 mmol/L (3.4-5.1); Sodium 135 mmol/L (137-145); Total Protein 7.6 g/dL (6.3-8.2)
[2021-08-17 12:20] LABS: Troponin I < 0.012 ng/mL (0.01-0.034)
[2021-08-17 15:20] LABS: Campylobacter Not Detected (Not Detect); Clostridium difficile toxin AB Detected (Not Detect)
[2021-08-17 15:21] LABS: Adenovirus F 40/41 Not Detected (Not Detect); Astrovirus Not Detected (Not Detect); Cryptosporidium Not Detected (Not Detect); Cyclospora cayetanensis Not Detected (Not Detect); Entamoeba histolytica Not Detected (Not Detect); Giardia lamblia Not Detected (Not Detect); Norovirus GI/GII Detected (Not Detect); Rotavirus A Not Detected (Not Detect); Sapovirus Not Detected (Not Detect); Shigella/Enteroinvasive E.coli Not Detected (Not Detect)
--- NOTE | 2021-08-17 16:03 | PC.NURSE ---
small formed stool collected for repeat stool sample
[2021-08-17] MEDS: SODIUM CHLORIDE 0.9% 1,000 ML 150 ML IV (17:00)
[2021-08-17 17:27] LABS: Ictotest Urine Negative (Negative)
[2021-08-17 17:28] LABS: Amorphous Sediment Urine 1+; Bacteria Urine Many (>30); RBC Urine None Seen (0-5/HPF); Squamous Epithelial Cell Urine 5-10 /HPF (0-5/HPF); WBC Urine 30-100/HPF (0-5/HPF)
[2021-08-17 17:29] LABS: Mucus Urine 2+ (Negative)
[2021-08-17 17:46] LABS: Adenovirus F 40/41 Not Detected (Not Detect); Astrovirus Not Detected (Not Detect); Campylobacter Not Detected (Not Detect); Clostridium difficile toxin AB Detected (Not Detect); Cryptosporidium Not Detected (Not Detect); Cyclospora cayetanensis Not Detected (Not Detect); Entamoeba histolytica Not Detected (Not Detect); Enteroaggregative E.coli Not Detected (Not Detect); Enteropathogenic E.coli Not Detected (Not Detect); Enterotoxigenic E.coli It/st Not Detected (Not Detect); Giardia lamblia Not Detected (Not Detect); Norovirus GI/GII Not Detected (Not Detect); Plesiomonsa shigelloides Not Detected (Not Detect); Rotavirus A Not Detected (Not Detect); Salmonella Not Detected (Not Detect); Sapovirus Not Detected (Not Detect); Shiga-like toxin-prod E.coli Not Detected (Not Detect); Shigella/Enteroinvasive E.coli Not Detected (Not Detect); Vibrio Not Detected (Not Detect); Vibrio cholerae Not Detected (Not Detect); Yersinia enterocolitica Not Detected (Not Detect)
[2021-08-17] MEDS: VANCOMYCIN 125 MG CAPSULE PO (18:51)
[2021-08-18 11:09] LABS: C difficie Toxins A and B, EIA Negative (Negative)
[2021-08-29 13:53] LABS: Salmonella Not Detected (Not Detect); Vibrio Not Detected (Not Detect); Vibrio cholerae Not Detected (Not Detect); Yersinia enterocolitica Not Detected (Not Detect)
[2021-08-29 13:54] LABS: Enteroaggregative E.coli Not Detected (Not Detect); Enteropathogenic E.coli Not Detected (Not Detect); Enterotoxigenic E.coli It/st Not Detected (Not Detect); Shiga-like toxin-prod E.coli Not Detected (Not Detect)
[2021-08-29 14:05] LABS: Plesiomonsa shigelloides Not Detected (Not Detect)
== END 2021-08-17 19:53 | disposition home or self-care (01) ==
PROVIDERS: Emergency Provider Emergency Medicine; PCP Physician Assistant
DX: A04.72 Enterocolitis due to Clostridium difficile, not specified as recurrent (principal); R07.9 Chest pain, unspecified
CPT/HCPCS: 36415; 71045; 80053; 81003; 81015; 82550; 83690; 83735; 84484; 85025; 87086; 87324; 87507; 93005; 96360; 96361; 99284

== ENCOUNTER 2021-09-13 12:58 | Emergency (ER) | payer MEDICARE, OTHER, SELFPAY ==
[2021-09-13] VITALS (11 sets, daily range): BP systolic 163–165; BP diastolic 72–95; PULSE 74–111; RESP 20–41; TEMP 36.9; O2SAT 92–100; BMI 25.7
[2021-09-13 13:36] LABS: Add Manual Diff / Slide Review NO; Basophils Absolute Auto 0 /uL (0-100); Basophils Percent Auto 0.3 % (0-2); Eosinophils Absolute Auto 0 /uL (0-450); Eosinophils Percent Auto 0.2 % (2-4); Hematocrit 36.9 % (36-46); Lymphocytes Absolute Auto 1100 /uL (1100-4500); Lymphocytes Percent Auto 18.6 % (25-40); Mean Corpuscular HGB Conc 32.6 % (30-36); Mean Corpuscular Hemoglobin 29.6 PG (26-34); Mean Corpuscular Volume 90.9 fL (80-100); Monocytes Absolute Auto 400 /uL (0-900); Monocytes Percent Auto 6.9 % (3-14); Neutrophils Absolute Auto 4500 /uL (1500-7000); Platelet Count 567 X10^3/uL (150-400); Red Blood Cell Count 4.06 X10^6/uL (4.0-5.2); Red Cell Distribution Width 13.3 % (11.6-14.8)
[2021-09-13 13:45] LABS: Troponin I < 0.012 ng/mL (0.01-0.034)
--- NOTE | 2021-09-13 14:27 | ED_ITS ---
HPI - Dizziness General Chief Complaint: Dizziness Stated Complaint: sob/weak/dizzy Time Seen by Provider: 09/13/21 13:45 Source: patient Mode of arrival: Wheelchair History of Present Illness HPI Narrative: This is a 81-year-old female history of C diff, hypertension, hypothyroidism, chronic pain, dry mouth, dyslipidemia and depression who comes to the emergency department with persistent loose stools after every episode of ingesting food patient states she had C diff in of 2021. She states she completed her oral antibiotics which included oral vancomycin she states she is still having persistent symptoms she states it is always when she eats food and then she will immediately afterwards have very loose stools. Patient denies any melena or hematochezia. She denies fevers but has felt sweaty or cold. She denies any chest pain or pressure, no new shortness of breath. She denies any swelling in extremities. She states she does have some with exertion but states this has not changed in any way. She is felt generally weak all over no lateralizing symptoms. No nausea, no vomiting. She states her appetite is okay but she is afraid to eat because she always has loose stools. She denies dysuria, urgency or frequency. She has a history of chronic back pain which has not changed she is on her typical medications. Patient states she has had a prior knee replacement denies any other surgeries. She does get iron infusions with Dr. Romero from hem/onc. Patient states she is allergic to penicillin, nystatin and medications with [place]. No tobacco, no alcohol or illicit. Her primary care is Bernie Swartz. She states she was told to avoid Imodium while having an active C Diff infection. Related Data Home Medications Medication Instructions Recorded Confirmed aspirin 81 mg tablet 81 mg PO DAILY 02/14/20 09/03/21 atorvastatin 10 mg tablet 10 mg PO QPM 02/14/20 09/03/21 duloxetine 60 mg capsule,delayed 60 mg PO BID 02/14/20 09/03/21 release hydrocortisone 2.5 % topical cream 1 applic topical BID 02/14/20 09/03/21 levothyroxine 88 mcg tablet 75 mcg PO DAILY 02/14/20 09/03/21 methocarbamol 750 mg tablet 750 mg PO Q6HR 02/14/20 09/03/21 oxycodone-acetaminophen 10 mg-325 2 tab PO Q6H PRN Pain (Scale Score 02/14/20 09/03/21 mg tablet 1-3) hyoscyamine sulfate 0.125 mg tablet 0.125 mg PO PRN PRN Unlisted 03/01/20 0 09/03/21 cevimeline 30 mg capsule 1 cap PO TID 06/05/20 09/03/21 amlodipine 5 mg tablet 10 mg PO DAILY 09/18/20 09/03/21 losartan 25 mg tablet 25 mg PO DAILY 09/18/20 09/03/21 medroxyprogesterone 5 mg tablet 5 mg PO DAILY 09/18/20 09/03/21 (Provera) pantoprazole 40 mg tablet,delayed 40 mg PO DAILY 12/11/20 09/03/21 release estradiol 0.5 mg tablet 0.5 mg PO DAILY 05/21/21 09/03/21 Previous Rx's Medication Instructions Recorded dicyclomine 10 mg capsule 10 mg PO BID #14 caps 08/17/21 Allergies Allergy/AdvReac Type Severity Reaction Status Date / Time cyclobenzaprine Allergy Unknown Verified 08/16/21 13:41 [From Flexeril] amitriptyline Allergy Verified 08/16/21 13:41 bupropion [From Wellbutrin] Allergy Verified 08/16/21 13:41 lisinopril Allergy Verified 08/16/21 13:41 nystatin Allergy Verified 08/16/21 13:41 Penicillins Allergy Verified 08/16/21 13:41 venlafaxine [From Effexor] Allergy Verified 08/16/21 13:41 Review of Systems Review of Systems ROS Unobtainable: All systems reviewed & are unremarkable except as noted in HPI and below Patient History Medical History Abdominal pain Arthritis Back pain Change in bowel habits Constipation Depression Diarrhea Early satiety Edema Esophageal dysphagia GERD (gastroesophageal reflux disease) Heartburn Hyperlipidemia Hypothyroidism Joint stiffness Muscle pain Vaginal itching Surgical History H/O right knee surgery H/O tubal ligation History of bilateral tubal ligation History of colonoscopy History of esophagogastroduodenoscopy (EGD) Family History Unknown Breast cancer Social History household members: other Smoking Status: Former smoker alcohol intake: never substance use type: does not use Smoking Status: Former smoker alcohol intake frequency: holidays/special occasions only Substance Use Type: does not use Exam Narrative Exam Narrative: GENERAL: Alert and oriented x three, elderly female in mild distress HEENT: Head normocephalic, atraumatic, EOMI, pupils reactive, face symmetric, moist mucous membranes NECK: Supple, full range of motion CARDIOVASCULAR: Regular rate and rhythm without murmurs, rubs or gallops. RESPIRATORY: Breath sounds equal bilaterally, no wheezes rales or rhonchi. ABDOMEN: Soft, nontender. Normoactive bowel sounds all 4 quadrants. No guarding or rebound, rigidity, no mass : No CVA tenderness EXTREMITIES: Normal range of motion, no clubbing or edema. Neurovascularly intact NEUROLOGICAL: Cranial nerves II through XII grossly intact. Moving all extremities SKIN: Warm, dry, no petechiae, no rashes or lesions. Initial Vital Signs Initial Vital Signs: Vital Signs Pulse Rate 94 H 09/13/21 13:07 Respiratory Rate 41 H 09/13/21 13:07 Blood Pressure 163/72 H 09/13/21 13:07 Pulse Oximetry 100 09/13/21 13:07 Course Orders Ordered: ED Orders 09/13/21 13:12 CMP [Comprehensive Metabolic Panel] Stat Complete Blood Count AUTO DIFF Stat Lipase Stat Troponin I Stat 09/13/21 13:33 EKG-12 Lead Stat 09/13/21 14:56 CT abdomen pelvis w con Stat 09/13/21 14:58 COVID19 -Nasal RAPID/Pre-Proc Stat 09/13/21 15:03 C Diff [Clostridium Difficile Tox PCR] Stat Urinalysis and Microscopic Stat Discontinued Medications Sodium Chloride (Normal Saline 0.9%) 1,000 mls @ 150 mls/hr IV CONT ANUPAM Last Admin: 09/13/21 13:46 Dose: Not Given Documented By: SARBJIT Sodium Chloride (Normal Saline 0.9%) 1,000 mls @ 1,000 mls/hr IV BOLUS ONE Stop: 09/13/21 15:54 Last Infusion: 09/13/21 16:48 Dose: 0 mls/hr Documented By: Admin: 09/13/21 15:30 Dose: 1,000 mls/hr Documented By: SARBJIT Reevaluation(s) Reevaluation #1: Reviewed patient's findings today. She received fluids, her labs show no acute change. Her stool was too formed for C diff testing, urine culture showed quite a few epithelial cells. Discussed with patient at this time I would recommend if she feels probiotics or to strong, cultured yogurt, Imodium as needed is she is 2 weeks out from completing her antibiotics and retesting of her stool. Patient is agreeable with this plan we discussed return precautions particularly if she is having persisting or worsening symptoms. Time: 17:12 Vital Signs Vital signs: Vital Signs - 8 hr 09/13/21 13:08 09/13/21 13:07 09/13/21 13:30 Temperature 98.4 F Pulse Rate 74 94 H 90 Respiratory Rate 20 41 H Blood Pressure 163/72 H 163/72 H Pulse Oximetry 92 100 100 Oxygen Delivery Method Room Air 09/13/21 14:00 09/13/21 14:30 09/13/21 15:00 Temperature Pulse Rate 92 H 97 H 111 H Respiratory Rate 24 24 Blood Pressure Pulse Oximetry 99 100 Oxygen Delivery Method 09/13/21 15:30 09/13/21 16:04 09/13/21 16:31 Temperature Pulse Rate 102 H 101 H 102 H Respiratory Rate 24 24 29 H Blood Pressure Pulse Oximetry 99 Oxygen Delivery Method 09/13/21 17:04 09/13/21 17:20 Temperature Pulse Rate 100 H 94 H Respiratory Rate 22 Blood Pressure 165/95 H Pulse Oximetry 96 Oxygen Delivery Method Room Air MDM - Dizziness Lab Data Result diagrams: 09/13/21 13:12 09/13/21 13:12 Labs: Lab Results 09/13/21 09/13/21 09/13/21 Range/Units 13:12 13:12 13:12 WBC 6.0 (4.5-11.0) X10^3/uL RBC 4.06 (4.0-5.2) X10^6/uL Hgb 12.0 (12.0-16.0) g/dL Hct 36.9 (36-46) % MCV 90.9 (80-100) fL MCH 29.6 (26-34) PG MCHC 32.6 (30-36) % RDW 13.3 (11.6-14.8) % Plt Count 567 H (150-400) X10^3/uL Neut % (Auto) 74.0 (50-75) % Lymph % (Auto) 18.6 L (25-40) % Jennings % (Auto) 6.9 (3-14) % Eos % (Auto) 0.2 L (2-4) % Baso % (Auto) 0.3 (0-2) % Neut # (Auto) 4500 (5807-3361) /uL Lymph # (Auto) 1100 (8194-0987) /uL Jennings # (Auto) 400 (0-900) /uL Eos # (Auto) 0 (0-450) /uL Baso # (Auto) 0 (0-100) /uL Sodium Cancelled 135 L Potassium Cancelled 4.3 Chloride Cancelled 99 Carbon Dioxide Cancelled 28 BUN Cancelled 5 L Creatinine Cancelled 0.53 Estimated GFR Cancelled > 60 BUN/Creatinine Ratio Cancelled 9.4 Glucose Cancelled 126 H Calcium Cancelled 9.1 Total Bilirubin 0.5 (0.2-1.3) mg/dL AST 29 (14-36) IU/L ALT 16 (<35) IU/L Alkaline Phosphatase 69 (38-126) U/L Troponin I < 0.012 (0.01-0.034) ng/mL Total Protein 6.9 (6.3-8.2) g/dL Albumin 4.2 (3.5-5.0) g/dL Globulin 2.7 (1.7-4.1) g/dL Albumin/Globulin Ratio 1.6 (1.0-2.8) Lipase 24 (23-300) U/L Urine Color Urine Appearance Urine pH (4.5-8.0) Ur Specific [place] (1.000-1.035) Urine Protein (Negative) Urine Glucose (UA) (Negative) g/dL Urine Ketones (NEGATIVE) Urine Occult Blood (Negative) Urine Nitrate (Negative) Urine Bilirubin (NEGATIVE) Urine Urobilinogen (0.2) E.U./dL Ur Leukocyte Esterase (NEGATIVE) Urine RBC (0-5/HPF) Urine WBC (0-5/HPF) Ur Squamous Epith Cells (0-5/HPF) Urine Bacteria (None) Ur Culture Indicated? C. difficile Tox (PCR) SARS-CoV-2 (PCR) (Negative) 09/13/21 09/13/21 09/13/21 Range/Units 14:58 15:03 15:03 WBC (4.5-11.0) X10^3/uL RBC (4.0-5.2) X10^6/uL Hgb (12.0-16.0) g/dL Hct (36-46) % MCV (80-100) fL MCH (26-34) PG MCHC (30-36) % RDW (11.6-14.8) % Plt Count (150-400) X10^3/uL Neut % (Auto) (50-75) % Lymph % (Auto) (25-40) % Jennings % (Auto) (3-14) % Eos % (Auto) (2-4) % Baso % (Auto) (0-2) % Neut # (Auto) (3849-1515) /uL Lymph # (Auto) (6616-8120) /uL Jennings # (Auto) (0-900) /uL Eos # (Auto) (0-450) /uL Baso # (Auto) (0-100) /uL Sodium Potassium Chloride Carbon Dioxide BUN Creatinine Estimated GFR BUN/Creatinine Ratio Glucose Calcium Total Bilirubin (0.2-1.3) mg/dL AST (14-36) IU/L ALT (<35) IU/L Alkaline Phosphatase (38-126) U/L Troponin I (0.01-0.034) ng/mL Total Protein (6.3-8.2) g/dL Albumin (3.5-5.0) g/dL Globulin (1.7-4.1) g/dL Albumin/Globulin Ratio (1.0-2.8) Lipase (23-300) U/L Urine Color Yellow Urine Appearance Cloudy Urine pH 8.0 (4.5-8.0) Ur Specific [place] 1.010 (1.000-1.035) Urine Protein Trace H (Negative) Urine Glucose (UA) Negative (Negative) g/dL Urine Ketones 1+ H (NEGATIVE) Urine Occult Blood Trace-lysed (Negative) Urine Nitrate Negative (Negative) Urine Bilirubin Negative (NEGATIVE) Urine Urobilinogen 0.2 (0.2) E.U./dL Ur Leukocyte Esterase 3+ H (NEGATIVE) Urine RBC None seen (0-5/HPF) Urine WBC 10-30/hpf H (0-5/HPF) Ur Squamous Epith Cells 10-30 /hpf H (0-5/HPF) Urine Bacteria None seen (None) Ur Culture Indicated? Cult not indicated C. difficile Tox (PCR) TNP SARS-CoV-2 (PCR) Negative (Negative) Imaging Data CT scan - abdomen/pelvis: Radiologist's Impression: [address] [address] [address] Scan Report Signed Patient: Charlotte Romero MR#: [id number] : 1940 Acct:[id number] Age/Sex: 81 / F Date of Service: 09/13/21 Loc: ED Accession Number: [id number] ?? Procedure: CT abdomen pelvis w con Ordering Provider: Yelena Beckford D.O. PROCEDURE:? CT ABDOMEN PELVIS W CON ? INDICATIONS:? diarrhea persists had C diff pancho ? TECHNIQUE:? After the administration of intravenous contrast, axial sections acquired from the lung bases to the pubic symphysis.? Coronal and sagittal reformats were performed.? For radiation dose reduction, the following was used:? automated exposure control, adjustment of mA and/or kV according to patient size.? ? COMPARISON:? [facility], CT, CT ABDOMEN PELVIS WITH CONTRAST ENTEROGRAPHY, 11/07/2020, 11:36. ? FINDINGS:? Image quality:? Excellent.? ? Lung bases:? Unremarkable. Heart:? No significant findings. ? ABDOMEN: Liver:? Unremarkable.? ? Gallbladder:? Unremarkable.? ? Biliary ducts:? Unremarkable.? ? Pancreas:? Unremarkable.? ? Spleen:? Unremarkable.? ? Adrenal Glands:? Unremarkable.? ? Kidneys and Ureters:? Unremarkable.? ? ? Stomach and Bowel:? Stomach, small bowel loops, and colon are unremarkable.? There is a small hiatal hernia. The appendix is thin walled and gas filled. There are extensive sigmoid diverticula. No evidence for diverticulitis. Peritoneum:? No abnormal intraperitoneal fluid.? No free air.? ? Ventral Wall: ? No hernias.? Abdominal Nodes:? No retroperitoneal or mesenteric adenopathy by size criteria.? Vessels:? Aorta and inferior vena cava are normal in size.? ? PELVIS: Pelvic Organs:? Unremarkable.? ? Bladder:? Unremarkable.? ? Pelvic Nodes: No enlarged lymph nodes.? Miscellaneous: No hernias are seen. ? ? ? Bones:? Severe degenerative changes are redemonstrated throughout the lumbar spine.? No compression deformities.? ? ? IMPRESSION:? ? 1. No acute intra-abdominal findings.? Normal appendix. ? 2. Extensive colonic diverticulosis.? No findings to suggest acute diverticulitis.? Additionally, no distention of the bowel or mucosal thickening to suggest colitis.? ? ? Dictated by: Narda Arora M.D. on 09/13/2021 at 16:17 ? ? Approved by: Narda Arora M.D. on 09/13/2021 at 16:20?? ECG Data Attestation: I personally reviewed and interpreted this ECG as follows: Interpretation: Sinus rhythm rate of 90 TN 160 QRS was 72 and QTC 462. No acute ST changes. Patient has prior from 08/17/2021 with no acute changes. MDM Narrative Medical decision making narrative: This is a 81-year-old female who comes emergency department with complaint of just feeling, slightly dizzy having recurrent loose stools after every ingestion of food. Patient's slightly hypertensive. Initial respiratory rate was read at 41 but patient appears quite comfortable without any tachypnea on exam. Patient EKG shows no acute changes, CBC shows slightly elevated platelets but have been persistently elevated she does receive iron infusions and is following with Hematology. Electrolytes and renal function are normal, troponin is negative with no acute chest pain or symptoms consistent with ACS in terms of shortness of breath. LFTs and lipase show no acute change. Patient was able to give a stool sample today but was formed and test not performed by lab secondary to solid form. Discussed with patient, CT does not show any major changes. Urine had squamous epithelials and likely was not a good sample for urine collection offered to obtain a 2nd 1. Recommended to retested as an outpatient with her stool if she is having persistent symptoms. Live culture yogurt if she is concerned that probiotics will be too strong. And follow-up in the short term. Discharge Plan Departure Patient Disposition: Home Clinical Impression: Weakness, Frequent bowel movements Activity Restrictions/Additional Instructions: Follow-up with your physician for recheck. Your labs do not show major abnormalities. I would follow up to have your stool re-tested for C Diff if you have persistent loose or watery stools. Continue your home medications as prescribed. If you find probiotics problematic it may be helpful to have yogurt with live culture daily this may be a little bit less extreme for your system. You can try adding a dose of Imodium once or twice daily to see if this is helpful. Please return for fevers, increasing weakness, passing out, new chest pain or shortness of breath, black or bloody stools, or other new or concerning symptoms. Prescriptions: No Action atorvastatin 10 mg Tablet 10 mg PO QPM levothyroxine 88 mcg Tablet 75 mcg PO DAILY methocarbamol 750 mg Tablet 750 mg PO Q6HR oxycodone-acetaminophen 10-325 mg Tablet 2 tab PO Q6H PRN (Reason: Pain (Scale Score 1-3)) hydrocortisone 2.5 % Cream 1 applic TOPICAL BID aspirin 81 mg Tablet 81 mg PO DAILY duloxetine 60 mg Capsule,Delayed Release(Dr/Ec) 60 mg PO BID cevimeline 30 mg Capsule 1 cap PO TID medroxyprogesterone [Provera] 5 mg Tablet 5 mg PO DAILY losartan 25 mg Tablet 25 mg PO DAILY amlodipine 5 mg tablet 10 mg PO DAILY pantoprazole 40 mg Tablet,Delayed Release (Dr/Ec) 40 mg PO DAILY estradiol 0.5 mg Tablet 0.5 mg PO DAILY Rx Instructions: off 5 days; repeat cycle hyoscyamine sulfate 0.125 mg Tablet 0.125 mg PO PRN PRN (Reason: Unlisted) dicyclomine 10 mg capsule 10 mg PO BID Qty: 14 0RF Referrals: Bernie Swartz PA-C [Primary Care Provider] - Visit Report Forms: Patient Portal/API
--- NOTE | 2021-09-13 14:56 | DI.CT.S_ITS ---
PROCEDURE: CT ABDOMEN PELVIS W CON INDICATIONS: diarrhea persists had C diff july TECHNIQUE: After the administration of intravenous contrast, axial sections acquired from the lung bases to the pubic symphysis. Coronal and sagittal reformats were performed. For radiation dose reduction, the following was used: automated exposure control, adjustment of mA and/or kV according to patient size. COMPARISON: [facility], CT, CT ABDOMEN PELVIS WITH CONTRAST ENTEROGRAPHY, 11/07/2020, 11:36. FINDINGS: Image quality: Excellent. Lung bases: Unremarkable. Heart: No significant findings. ABDOMEN: Liver: Unremarkable. Gallbladder: Unremarkable. Biliary ducts: Unremarkable. Pancreas: Unremarkable. Spleen: Unremarkable. Adrenal Glands: Unremarkable. Kidneys and Ureters: Unremarkable. Stomach and Bowel: Stomach, small bowel loops, and colon are unremarkable. There is a small hiatal hernia. The appendix is thin walled and gas filled. There are extensive sigmoid diverticula. No evidence for diverticulitis. Peritoneum: No abnormal intraperitoneal fluid. No free air. Ventral Wall: No hernias. Abdominal Nodes: No retroperitoneal or mesenteric adenopathy by size criteria. Vessels: Aorta and inferior vena cava are normal in size. PELVIS: Pelvic Organs: Unremarkable. Bladder: Unremarkable. Pelvic Nodes: No enlarged lymph nodes. Miscellaneous: No hernias are seen. Bones: Severe degenerative changes are redemonstrated throughout the lumbar spine. No compression deformities. IMPRESSION: 1. No acute intra-abdominal findings. Normal appendix. 2. Extensive colonic diverticulosis. No findings to suggest acute diverticulitis. Additionally, no distention of the bowel or mucosal thickening to suggest colitis. Dictated by: Narda Arora M.D. on 09/13/2021 at 16:17 Approved by: Narda Arora M.D. on 09/13/2021 at 16:20
[2021-09-13 15:09] LABS: Alanine Aminotransferase 16 IU/L (<35); Albumin 4.2 g/dL (3.5-5.0); Albumin Globulin Ratio 1.6 (1.0-2.8); Alkaline Phosphatase 69 U/L (38-126); Aspartate Aminotransferase 29 IU/L (14-36); BUN Creatinine Ratio 9.4 (6-22); Bilirubin Total 0.5 mg/dL (0.2-1.3); Blood Urea Nitrogen 5 mg/dL (7-17); Calcium 9.1 mg/dL (8.4-10.2); Carbon Dioxide 28 mmol/L (22-32); Chloride 99 mmol/L (98-107); Estimated Glomerular Filt Rate > 60 mL/min (>60); Globulin 2.7 g/dL (1.7-4.1); Glucose 126 mg/dL (80-110); HEMOLYSIS < 15 (0-50); Lipase 24 U/L (23-300); Potassium 4.3 mmol/L (3.4-5.1); Sodium 135 mmol/L (137-145); Total Protein 6.9 g/dL (6.3-8.2)
[2021-09-13 15:16] LABS: COVID19 -Nasal RAPID Negative (Negative)
[2021-09-13 15:20] LABS: Appearance Urine UA CLOUDY; Bilirubin Urine UA NEGATIVE (NEGATIVE); Color Urine UA YELLOW; Glucose Urine UA NEGATIVE (Negative); Ketones Urine UA 1+ (NEGATIVE); Leukocyte Esterase Urine UA 3+ (NEGATIVE); Nitrite Urine UA NEGATIVE (Negative); Occult Blood Urine UA TRACE-LYSED (Negative); Protein Urine UA TRACE (Negative); Urobilinogen Urine UA 0.2 E.U./dL (0.2)
[2021-09-13 15:29] LABS: Bacteria Urine None Seen; Culture Indicated Urine Cult Not Indicated; RBC Urine None Seen (0-5/HPF); Squamous Epithelial Cell Urine 10-30 /HPF (0-5/HPF); WBC Urine 10-30/HPF (0-5/HPF)
[2021-09-13] MEDS: SODIUM CHLORIDE 0.9% 1,000 ML 1000 ML IV (15:30)
--- NOTE | 2021-09-13 16:37 | PC.NURSE ---
pt customer service receptionist light repeatedly for help up to BSC. family at bedside. pt stand by assist to BSC. pt denies further needs at this time.
== END 2021-09-13 17:51 | disposition home or self-care (01) ==
PROVIDERS: Emergency Provider Emergency Medicine; PCP Physician Assistant
DX: R53.1 Weakness (principal); I10 Essential (primary) hypertension; R19.4 Change in bowel habit; R07.9 Chest pain, unspecified; Z20.822 Contact with and (suspected) exposure to COVID-19
CPT/HCPCS: 74177; 80053; 81001; 83690; 84484; 85025; 87635; 93005; 93010; 96360; 99284; C9803; Q9967

== ENCOUNTER → 2022-12-16 14:11 | Outpatient (CLI) | payer MEDICARE, OTHER, SELFPAY ==
[2022-12-16 16:13] LABS: Hematocrit 37.8 % (36-46); Hemoglobin 12.8 g/dL (12.0-16.0); Mean Corpuscular HGB Conc 33.7 % (30-36); Mean Corpuscular Hemoglobin 29.8 PG (26-34); Mean Corpuscular Volume 88.2 fL (80-100); Platelet Count 449 X10^3/uL (150-400); Red Blood Cell Count 4.29 X10^6/uL (4.0-5.2); Red Cell Distribution Width 13.9 % (11.6-14.8); White Blood Cell Count 8.2 X10^3/uL (4.5-11.0)
[2022-12-16 16:30] LABS: HEMOLYSIS 50 (0-50); Iron 93 ug/dL (37-170)
[2022-12-16 16:32] LABS: Alanine Aminotransferase 17 IU/L (<35); Albumin 4.4 g/dL (3.5-5.0); Albumin Globulin Ratio 1.5 (1.0-2.8); Alkaline Phosphatase 55 U/L (38-126); Aspartate Aminotransferase 25 IU/L (14-36); BUN Creatinine Ratio 19.4 (6-22); Bilirubin Total 0.4 mg/dL (0.2-1.3); Blood Urea Nitrogen 12 mg/dL (7-17); Calcium 9.4 mg/dL (8.4-10.2); Carbon Dioxide 28 mmol/L (22-32); Chloride 98 mmol/L (98-107); Cholesterol 192 mg/dL (140-199); Estimated Glomerular Filt Rate > 60 mL/min (>60); Glucose 92 mg/dL (80-110); HDL Cholesterol 81 mg/dL (40-60); HEMOLYSIS < 15 (0-50); LDL Cholesterol Calculated 95 mg/dL (<100); Potassium 4.3 mmol/L (3.4-5.1); Sodium 132 mmol/L (137-145); Total Protein 7.4 g/dL (6.3-8.2); Triglycerides 81 mg/dL (35-150)
[2022-12-16 16:40] LABS: Percent Iron Saturation 33 % (15-50); Total Iron Binding Capacity 285 ug/dL (265-497); Transferrin 232 mg/dL (206-381)
[2022-12-16 17:04] LABS: TSH w/ Reflex to FT4 1.52 uIU/mL (0.47-4.68)
[2022-12-16 17:06] LABS: Ferritin 120 ng/mL (11-264)
== END ==
PROVIDERS: PCP Internal Medicine; Referring Provider Internal Medicine; Visit Provider Internal Medicine
DX: E78.2 Mixed hyperlipidemia (principal); D50.9 Iron deficiency anemia, unspecified; I10 Essential (primary) hypertension; E03.9 Hypothyroidism, unspecified
CPT/HCPCS: 36415; 80053; 80061; 82728; 83540; 83550; 84443; 85027

== ENCOUNTER → 2024-01-10 08:03 | Outpatient (CLI) | payer MEDICARE, OTHER, SELFPAY ==
[2024-01-10 09:05] LABS: Hematocrit 40.4 % (36-46); Hemoglobin 13.3 g/dL (12.0-16.0); Mean Corpuscular HGB Conc 32.8 % (30-36); Mean Corpuscular Hemoglobin 28.6 PG (26-34); Mean Corpuscular Volume 87.2 fL (80-100); Platelet Count 506 X10^3/uL (150-400); Red Blood Cell Count 4.64 X10^6/uL (4.0-5.2); Red Cell Distribution Width 13.9 % (11.6-14.8); White Blood Cell Count 12.7 X10^3/uL (4.5-11.0)
[2024-01-10 09:27] LABS: BUN Creatinine Ratio 22.8 (6-22); Blood Urea Nitrogen 23 mg/dL (7-17); Calcium 9.3 mg/dL (8.4-10.2); Carbon Dioxide 29 mmol/L (22-32); Chloride 99 mmol/L (98-107); Estimated Glomerular Filt Rate 56 mL/min (>60); Glucose 106 mg/dL (80-110); HEMOLYSIS < 15 (0-50); Iron 197 ug/dL (37-170); Sodium 133 mmol/L (137-145)
[2024-01-10 09:38] LABS: Percent Iron Saturation 59 % (15-50); Total Iron Binding Capacity 334 ug/dL (265-497); Transferrin 287 mg/dL (206-381)
[2024-01-10 09:53] LABS: Potassium 5.8 mmol/L (3.4-5.1)
== END ==
PROVIDERS: PCP Internal Medicine; Referring Provider Internal Medicine; Visit Provider Internal Medicine
DX: D64.9 Anemia, unspecified (principal); D50.9 Iron deficiency anemia, unspecified; I10 Essential (primary) hypertension
CPT/HCPCS: 36415; 80048; 83540; 83550; 85027

== ENCOUNTER → 2024-02-07 11:37 | Outpatient (CLI) | payer MEDICARE, OTHER, SELFPAY ==
--- NOTE | 2024-02-07 11:41 | DI.RAD.S_ITS ---
PROCEDURE: XR LUMBAR SPINE 6V W BENDING INDICATIONS: back pain, no trauma TECHNIQUE: 5 views of the lumbar spine acquired, including flexion and extension views. COMPARISON: [facility], , XR LUMBAR SPINE 2-3V, 09/07/2019, 11:40. FINDINGS: Bones: 5 nonrib-bearing vertebrae are present. There is moderate levocurvature of the mid lumbar spine. Moderate progression of severe multilevel lumbar spondylosis from L1-2 through L5-S1. Interval progression of severe mid and lower lumbar facet arthropathy. Significant disc space loss and prominent endplate osteophyte formation.. No acute vertebral body compression fractures. No suspicious bony lesions. Soft tissues: Overlying bowel gas pattern is normal. No suspicious soft tissue calcifications. Flexion/extension: There is decreased/limited range of motion, with preserved bony alignment. IMPRESSION: No acute bony abnormality. Levoscoliosis of the lumbar spine with interval progression of now severe multilevel lumbar spondylosis. Limited range of motion between flexion and extension with preservation of bony alignment. Dictated by: Austin Downey M.D. on 02/07/2024 at 16:52 Approved by: Austin Downey M.D. on 02/07/2024 at 16:55
== END ==
PROVIDERS: PCP Internal Medicine; Referring Provider Internal Medicine; Visit Provider Internal Medicine
DX: M47.816 Spondylosis without myelopathy or radiculopathy, lumbar region (principal); M47.817 Spondylosis without myelopathy or radiculopathy, lumbosacral region; M41.9 Scoliosis, unspecified; M54.50 Low back pain, unspecified; G89.29 Other chronic pain
CPT/HCPCS: 72114

== ENCOUNTER → 2024-02-16 12:18 | Outpatient (CLI) | payer MEDICARE, OTHER, SELFPAY ==
--- NOTE | 2024-02-16 12:19 | DI.MRI.S_ITS ---
PROCEDURE: MR LUMBAR SPINE WO CON INDICATIONS: Lumbar spinal stenosis TECHNIQUE: Noncontrast sagittal T1 spin echo and T2 fast echo, sagittal STIR, and T2 fast spin echo through the lumbar spine. In cases with scoliosis, additional coronal T2 fast spin echo may be performed. COMPARISON: [facility], MR, MR LUMBAR SPINE WO CON, 09/07/2019, 11:20. FINDINGS: Image quality: Excellent. Alignment and Curvature: Levo scoliotic curvature. Mild retrolisthesis of L2 on L3 and L3 on L4. Bone Marrow: Multilevel degenerative endplate changes. Marrow is of normal overall signal. No acute vertebral body compression fractures. Spinal Cord: Conus medullaris terminates at the L1 level. Visualized cord demonstrates normal signal and size. Paraspinous Soft Tissues: No paravertebral masses. T12-L1: Disc desiccation and mild height loss. Mild diffuse disc bulge. Facet arthropathy. No central canal or neural foraminal stenosis. L1-L2: Disc desiccation and moderate height loss. Diffuse disc bulge. Facet arthropathy and thickening of ligamentum flavum. Mild central canal stenosis. Mild bilateral neural foraminal stenosis. L2-L3: Disc desiccation and moderate height loss. Posterior disc bulge. Facet arthropathy and thickening of ligamentum flavum. Mild central canal stenosis. Moderate right and mild left neural foraminal stenosis. L3-L4: Disc desiccation and moderate height loss. Posterior disc bulge. Facet arthropathy and thickening of ligamentum flavum. Mild central canal stenosis. Severe right and mild left neural foraminal stenosis. L4-L5: Disc desiccation and moderate height loss. Mild disc bulge. Facet arthropathy. No central canal stenosis. Mild bilateral neural foraminal stenosis. L5-S1: Disc desiccation and mild height loss. Diffuse disc bulge with small superimposed central disc protrusion. Facet arthropathy. No central canal stenosis. Severe bilateral neural foraminal stenosis. IMPRESSION: 1. Multilevel degenerative changes of the lumbar spine with levo scoliotic curvature. 2. Mild multilevel central canal stenosis. 3. Severe neural foraminal stenosis on the right at L3-L4 and bilaterally at L5-S1. Dictated by: Clemente Lamb M.D. on 02/16/2024 at 16:20 Approved by: Cleemnte Lamb M.D. on 02/16/2024 at 16:42
== END ==
PROVIDERS: PCP Internal Medicine; Referring Provider Internal Medicine; Visit Provider Internal Medicine
DX: M48.061 Spinal stenosis, lumbar region without neurogenic claudication (principal); M48.07 Spinal stenosis, lumbosacral region; M47.816 Spondylosis without myelopathy or radiculopathy, lumbar region; M47.817 Spondylosis without myelopathy or radiculopathy, lumbosacral region
CPT/HCPCS: 72148

== ENCOUNTER 2025-01-28 19:55 | Emergency (ER) | payer MEDICARE, OTHER, SELFPAY ==
[2024-10-03 18:57] VITALS: BMI 28.3
[2025-01-28] VITALS (11 sets, daily range): BP systolic 116–160; BP diastolic 61–68; PULSE 96–103; RESP 14–23; O2SAT 93–99; BMI 28.3
[2025-01-28 20:32] LABS: Add Manual Diff / Slide Review NO; Hematocrit 33.7 % (36-46); Hemoglobin 11.1 g/dL (12.0-16.0); Lymphocytes Absolute Auto 900 /uL (1100-4500); Mean Corpuscular HGB Conc 32.8 % (30-36); Mean Corpuscular Hemoglobin 26.5 PG (26-34); Mean Corpuscular Volume 80.7 fL (80-100); Platelet Count 480 X10^3/uL (150-400)
[2025-01-28 20:36] LABS: Lactate (Lactic Acid) 1.3 mmol/L (0.7-2.1)
[2025-01-28 20:37] LABS: Alanine Aminotransferase 10 IU/L (<35); Albumin 4.2 g/dL (3.5-5.0); Albumin Globulin Ratio 1.3 (1.0-2.8); Alkaline Phosphatase 86 U/L (38-126); Blood Urea Nitrogen 10 mg/dL (7-17); Calcium 8.9 mg/dL (8.4-10.2); Carbon Dioxide 17 mmol/L (22-32); Chloride 101 mmol/L (98-107); Estimated Glomerular Filt Rate > 60 mL/min (>60); Globulin 3.2 g/dL (1.7-4.1); Glucose 109 mg/dL (70-99); HEMOLYSIS 38 (0-50); Magnesium 1.7 mg/dL (1.6-2.3); Potassium 4.1 mmol/L (3.4-5.1); Sodium 132 mmol/L (137-145); Total Protein 7.4 g/dL (6.3-8.2)
[2025-01-28] MEDS: SODIUM CHLORIDE 0.9% 1,000 ML 1000 ML IV (20:43)
[2025-01-28 20:54] LABS: Procalcitonin 0.607 ng/mL (<0.5)
[2025-01-28 21:44] LABS: Coronavirus NL 63 Not Detected (Not Detect); SARS- CoV-2 Not Detected (Not Detecte)
--- NOTE | 2025-01-28 21:52 | ED.WEAKNESS ---
HPI - Weakness <Ken Marinelli MD - Last Filed: 01/28/25 23:30> General Chief complaint: Weakness Stated complaint: Cough with weakness Time Seen by Provider: 01/28/25 20:17 Source: patient and EMS Mode of arrival: EMS History of Present Illness HPI Narrative: 84-year-old female patient with a history of hypertension, dyslipidemia, hypothyroidism,chronic pain issues, GERD and anxiety/depression who presents complaining of generalized weakness worsening over the last week or 2 although she can ambulate but she is getting weaker and weaker. She admits to not eating and drinking as much as she thinks she ought to. She does live alone and take care of herself. She also reports a cough for About 2 months that has been both dry and productive with no shortness of breath or fevers. She did not mentioned this to her doctor when she saw him 2 weeks ago. Related Data Home Medications ?Medication ?Instructions ?Recorded ?Confirmed cevimeline 30 mg capsule 1 cap PO TID 06/05/20 01/05/25 naloxone 4 mg/actuation nasal spray 4 mg intranasal Q3M 11/13/22 01/05/25 Previous Rx's ?Medication ?Instructions ?Recorded dicyclomine 10 mg capsule 10 mg PO BID PRN GI sx #15 caps 07/22/23 Parking Permit... #1 ea 11/05/23 levothyroxine 75 mcg tablet 75 mcg PO DAILY #270 tabs 02/02/24 pantoprazole 40 mg tablet,delayed 40 mg PO BID #180 tabs 02/03/24 release hyoscyamine sulfate 0.125 mg tablet 0.125 mg PO DAILY PRN dyspepsia 03/01/24 #90 tabs losartan 100 mg tablet 100 mg PO DAILY #90 tabs 04/28/24 celecoxib 100 mg capsule 100 mg PO BID PRN pain #180 caps 05/10/24 estradiol 1 mg tablet 1 mg PO DAILY #90 tabs 08/17/24 medroxyprogesterone 5 mg tablet 5 mg PO DAILY #90 tabs 08/17/24 (Provera) methocarbamol 750 mg tablet 750 - 1,500 mg (1 - 2 x 750 mg) PO 09/07/24 Q6H PRN muscle spasm #120 tabs amlodipine 10 mg tablet 10 mg PO DAILY #90 tabs 10/26/24 methadone 5 mg tablet 5 mg PO QID #180 tabs 12/09/24 methadone 5 mg tablet 5 mg PO QID #180 tabs 12/09/24 pregabalin 100 mg capsule 100 mg PO TID #90 caps 12/09/24 methadone 5 mg tablet 7.5 mg (1.5 x 5 mg) PO QID #180 01/05/25 tabs atorvastatin 10 mg tablet 10 mg PO QPM #90 tabs 01/22/25 duloxetine 60 mg capsule,delayed 60 mg PO DAILY #90 caps 01/22/25 release amoxicillin 875 mg-potassium 1 tab PO BID #20 tabs 01/29/25 clavulanate 125 mg tablet azithromycin 250 mg tablet See Rx Instructions PO .COMPLEX #6 01/29/25 tabs Allergies Allergy/AdvReac Type Severity Reaction Status Date / Time lidocaine Allergy Severe swelling Verified 01/28/25 20:17 amitriptyline Allergy Mild Rash Verified 01/28/25 20:17 bupropion (From Wellbutrin) Allergy Mild Rash Verified 01/28/25 20:17 hydroxychloroquine (From Allergy Mild Rash Verified 01/28/25 20:17 Plaquenil) lisinopril Allergy Mild Rash Verified 01/28/25 20:17 nystatin Allergy Mild Rash Verified 01/28/25 20:17 venlafaxine (From Effexor) Allergy Mild Rash Verified 01/28/25 20:17 cyclobenzaprine (From Allergy Unknown Verified 01/28/25 20:17 Flexeril) Penicillins Allergy Verified 01/28/25 20:17 fluoride AdvReac Severe Vomiting Verified 01/28/25 20:17 hyoscyamine AdvReac Severe stomach Verified 01/28/25 20:17 cramps gabapentin AdvReac Intermediate dysphoria Verified 01/28/25 20:17 metronidazole AdvReac Intermediate GI upset Verified 01/28/25 20:17 tizanidine AdvReac Mild dry mouth Verified 01/28/25 20:17 hyoscyamine AdvReac Intermediate Uncoded 01/28/25 20:17 iron sucrose AdvReac Unknown Uncoded 01/28/25 20:17 Review of Systems <Ken Marinelli MD - Last Filed: 01/28/25 23:30> Review of Systems ROS Unobtainable: All systems reviewed & are unremarkable except as noted in HPI and below Constitutional Constitutional: Reports as per HPI Respiratory Respiratory: Reports as per HPI Neurologic Neurologic: Reports as per HPI Psychiatric Psychiatric: Reports as per HPI Patient History <Ken Marinelli MD - Last Filed: 01/28/25 23:30> Medical History Abdominal pain Acquired hypothyroidism Anemia (~2017) Anxiety Arthritis Back pain Change in bowel habits Chicken pox Chronic low back pain Chronic, continuous use of opioids Constipation Curvature of spine DDD (degenerative disc disease) Depression Depression, major, recurrent Diarrhea Do not resuscitate Early satiety Edema Esophageal dysphagia Essential hypertension Foot pain (~2019) GERD without esophagitis Irritable bowel syndrome with diarrhea Measles Menopausal syndrome Mixed hyperlipidemia Muscle pain Polyneuropathy, unspecified Primary osteoarthritis involving multiple joints Right rotator cuff tendonitis Vaginal itching Surgical History Anesthesia H/O right knee surgery (~2019) H/O tubal ligation History of bilateral tubal ligation History of cataract removal with insertion of prosthetic lens History of colonoscopy (~2018) History of esophagogastroduodenoscopy (EGD) Family History Unknown Breast cancer Father Diabetes mellitus Stroke Alcoholism Smoker Mother Diabetes mellitus History of heart disease Arthritis Brother Mental health problem Alcoholism Smoker Sister Arthritis Social History household members: none alcohol intake: never substance use type: does not use alcohol intake frequency: holidays/special occasions only Exam <Ken Marinelli MD - Last Filed: 01/28/25 23:30> Narrative Exam Narrative: General: Alert and conversant. No distress. appears slightly thin and dehydrated. Craniofacial: No evidence of trauma. Nontender and no swelling. Eyes: PERRLA EOMI conjunctiva clear HEENT: Oropharynx clear with no swelling, exudate or asymmetry of the pharynx. Nares clear. No sinus tenderness Neck: No tenderness or adenopathy. No meningismus. No JVD Lungs: Clear to auscultation with good air movement. No wheezing, rales or rhonchi. No respiratory distress Cardiac: Regular rate and rhythm with no appreciable murmur or gallop Abdomen: Soft, nontender with no distention or masses. Normal bowel sounds. No rebound or guarding Musculoskeletal: Exam of the extremities, axial spine and ribcage reveals no deformity, bony tenderness or swelling. Range of motion intact Neuro: Alert and oriented. Cranial nerves, motor, sensory and cerebellar all grossly intact. No focal deficit Skin: Warm and normal color. No rashes Psychological: Normal affect and interaction. No evidence of delusion or psychosis. Normal mood. Initial Vital Signs Initial Vital Signs: Vital Signs Pulse Rate 103 H 01/28/25 19:59 Respiratory Rate 20 01/28/25 19:59 Blood Pressure 151/67 H 01/28/25 19:59 Pulse Oximetry 97 01/28/25 19:59 Oxygen Delivery Method Room Air 01/28/25 19:59 <Yelena Beckford DO - Last Filed: 01/29/25 02:01> Initial Vital Signs Initial Vital Signs: Vital Signs Pulse Rate 103 H 01/28/25 19:59 Respiratory Rate 20 01/28/25 19:59 Blood Pressure 151/67 H 01/28/25 19:59 Pulse Oximetry 97 01/28/25 19:59 Oxygen Delivery Method Room Air 01/28/25 19:59 Course <Ken Marinelli MD - Last Filed: 01/28/25 23:30> Orders Ordered: ED Orders 01/28/25 20:10 CBC Auto Diff [Complete Blood Count AUTO DIFF] Stat CMP [Comprehensive Metabolic Panel] Stat Lactate (Lactic Acid) Stat Magnesium Stat Procalcitonin Stat 01/28/25 20:30 Respiratory Panel (Film Array) Stat 01/28/25 23:15 Urinalysis and Microscopic Stat 01/28/25 23:37 Chest [XR chest 1V] Stat Discontinued Medications Amoxicillin/Clavulanate Potassium (Amoxicillin/Clav 875/125 Mg) 1 tab PO NOW ONE Stop: 01/29/25 01:09 Last Admin: 01/29/25 01:11 Dose: 1 tab Documented By: KIMI Azithromycin (Azithromycin 250 Mg Tablet) 500 mg PO NOW ONE Stop: 01/29/25 01:09 Last Admin: 01/29/25 01:11 Dose: 500 mg Documented By: KIMI Sodium Chloride (Normal Saline 0.9%) 1,000 mls @ 1,000 mls/hr IV BOLUS ONE Stop: 01/28/25 21:22 Last Infusion: 01/28/25 21:40 Dose: Infused Documented By: Admin: 01/28/25 20:43 Dose: 1,000 mls/hr Documented By: CHRISTIAN Vital Signs Vital signs: Vital Signs - 8 hr 01/28/25 19:59 01/28/25 19:59 01/28/25 20:00 Pulse Rate 103 H 101 H Respiratory Rate 20 14 Blood Pressure 151/67 H Pulse Oximetry 97 97 Oxygen Delivery Method Room Air 01/28/25 20:00 01/28/25 20:30 01/28/25 20:31 Pulse Rate 100 H 103 H Respiratory Rate 22 22 Blood Pressure 146/66 H Pulse Oximetry 94 Oxygen Delivery Method 01/28/25 20:31 01/28/25 21:00 01/28/25 21:00 Pulse Rate 97 H Respiratory Rate 21 Blood Pressure 116/61 149/65 H Pulse Oximetry 93 Oxygen Delivery Method 01/28/25 21:30 01/28/25 21:30 01/28/25 22:00 Pulse Rate 97 H Respiratory Rate 18 Blood Pressure 147/68 H 144/63 H Pulse Oximetry 99 Oxygen Delivery Method 01/28/25 22:00 01/28/25 22:30 01/28/25 22:30 Pulse Rate 99 H 101 H Respiratory Rate 16 19 Blood Pressure 150/65 H Pulse Oximetry 97 96 Oxygen Delivery Method 01/28/25 23:00 01/28/25 23:00 01/28/25 23:30 Pulse Rate 98 H 96 H Respiratory Rate 23 20 Blood Pressure 137/62 Pulse Oximetry 95 95 Oxygen Delivery Method 01/28/25 23:31 01/28/25 23:31 01/29/25 00:00 Pulse Rate 96 H 91 H Respiratory Rate 22 20 Blood Pressure 160/68 H Pulse Oximetry 96 96 Oxygen Delivery Method Room Air Room Air 01/29/25 00:00 01/29/25 00:30 01/29/25 00:31 Pulse Rate 97 H 99 H Respiratory Rate 34 H 30 H Blood Pressure 145/65 H Pulse Oximetry 95 95 Oxygen Delivery Method Room Air Room Air 01/29/25 00:31 01/29/25 01:00 01/29/25 01:00 Pulse Rate 87 Respiratory Rate 21 Blood Pressure 142/65 H 142/66 H Pulse Oximetry 96 Oxygen Delivery Method Room Air <Yelnea Beckford, DO - Last Filed: 01/29/25 02:01> Orders Ordered: ED Orders 01/28/25 20:10 CBC Auto Diff [Complete Blood Count AUTO DIFF] Stat CMP [Comprehensive Metabolic Panel] Stat Lactate (Lactic Acid) Stat Magnesium Stat Procalcitonin Stat 01/28/25 20:30 Respiratory Panel (Film Array) Stat 01/28/25 23:15 Urinalysis and Microscopic Stat 01/28/25 23:37 Chest [XR chest 1V] Stat Discontinued Medications Amoxicillin/Clavulanate Potassium (Amoxicillin/Clav 875/125 Mg) 1 tab PO NOW ONE Stop: 01/29/25 01:09 Last Admin: 01/29/25 01:11 Dose: 1 tab Documented By: KIMI Azithromycin (Azithromycin 250 Mg Tablet) 500 mg PO NOW ONE Stop: 01/29/25 01:09 Last Admin: 01/29/25 01:11 Dose: 500 mg Documented By: KIMI Sodium Chloride (Normal Saline 0.9%) 1,000 mls @ 1,000 mls/hr IV BOLUS ONE Stop: 01/28/25 21:22 Last Infusion: 01/28/25 21:40 Dose: Infused Documented By: Admin: 01/28/25 20:43 Dose: 1,000 mls/hr Documented By: CHRISTIAN Vital Signs Vital signs: Vital Signs - 8 hr 01/28/25 19:59 01/28/25 19:59 01/28/25 20:00 Pulse Rate 103 H 101 H Respiratory Rate 20 14 Blood Pressure 151/67 H Pulse Oximetry 97 97 Oxygen Delivery Method Room Air 01/28/25 20:00 01/28/25 20:30 01/28/25 20:31 Pulse Rate 100 H 103 H Respiratory Rate 22 22 Blood Pressure 146/66 H Pulse Oximetry 94 Oxygen Delivery Method 01/28/25 20:31 01/28/25 21:00 01/28/25 21:00 Pulse Rate 97 H Respiratory Rate 21 Blood Pressure 116/61 149/65 H Pulse Oximetry 93 Oxygen Delivery Method 01/28/25 21:30 01/28/25 21:30 01/28/25 22:00 Pulse Rate 97 H Respiratory Rate 18 Blood Pressure 147/68 H 144/63 H Pulse Oximetry 99 Oxygen Delivery Method 01/28/25 22:00 01/28/25 22:30 01/28/25 22:30 Pulse Rate 99 H 101 H Respiratory Rate 16 19 Blood Pressure 150/65 H Pulse Oximetry 97 96 Oxygen Delivery Method 01/28/25 23:00 01/28/25 23:00 01/28/25 23:30 Pulse Rate 98 H 96 H Respiratory Rate 23 20 Blood Pressure 137/62 Pulse Oximetry 95 95 Oxygen Delivery Method 01/28/25 23:31 01/28/25 23:31 01/29/25 00:00 Pulse Rate 96 H 91 H Respiratory Rate 22 20 Blood Pressure 160/68 H Pulse Oximetry 96 96 Oxygen Delivery Method Room Air Room Air 01/29/25 00:00 01/29/25 00:30 01/29/25 00:31 Pulse Rate 97 H 99 H Respiratory Rate 34 H 30 H Blood Pressure 145/65 H Pulse Oximetry 95 95 Oxygen Delivery Method Room Air Room Air 01/29/25 00:31 01/29/25 01:00 01/29/25 01:00 Pulse Rate 87 Respiratory Rate 21 Blood Pressure 142/65 H 142/66 H Pulse Oximetry 96 Oxygen Delivery Method Room Air MDM - Weakness <Ken Marinelli MD - Last Filed: 01/28/25 23:30> Medical Records Attestation: I reviewed the patient's medical records. Lab Data Attestation: I reviewed the patient's lab results. 01/28/25 20:10 01/28/25 20:10 Labs: Lab Results 01/28/25 01/28/25 01/28/25 Range/Units 20:10 20:30 23:15 WBC 13.4 H (4.5-11.0) X10^3/uL RBC 4.18 (4.0-5.2) X10^6/uL Hgb 11.1 L (12.0-16.0) g/dL Hct 33.7 L (36-46) % MCV 80.7 (80-100) fL MCH 26.5 (26-34) PG MCHC 32.8 (30-36) % RDW 15.4 H (11.6-14.8) % Plt Count 480 H (150-400) X10^3/uL Neut % (Auto) 84.2 H (50-75) % Lymph % (Auto) 6.4 L (25-40) % Lyman % (Auto) 9.1 (3-14) % Eos % (Auto) 0.0 L (2-4) % Baso % (Auto) 0.3 (0-2) % Neut # (Auto) 39701 H (9697-4303) /uL Lymph # (Auto) 900 L (9598-6612) /uL Lyman # (Auto) 1200 H (0-900) /uL Eos # (Auto) 0 (0-450) /uL Baso # (Auto) 0 (0-100) /uL Sodium 132 L (137-145) mmol/L Potassium 4.1 (3.4-5.1) mmol/L Chloride 101 (98-107) mmol/L Carbon Dioxide 17 L (22-32) mmol/L BUN 10 (7-17) mg/dL Creatinine 0.78 (0.52-1.04) mg/dL Estimated GFR > 60 (>60) mL/min BUN/Creatinine Ratio 12.8 (6-22) Glucose 109 H (70-99) mg/dL Lactate 1.3 (0.7-2.1) mmol/L Calcium 8.9 (8.4-10.2) mg/dL Magnesium 1.7 (1.6-2.3) mg/dL Total Bilirubin 0.8 (0.2-1.3) mg/dL AST 20 (14-36) IU/L ALT 10 (<35) IU/L Alkaline Phosphatase 86 (38-126) U/L Total Protein 7.4 (6.3-8.2) g/dL Albumin 4.2 (3.5-5.0) g/dL Globulin 3.2 (1.7-4.1) g/dL Albumin/Globulin Ratio 1.3 (1.0-2.8) Procalcitonin 0.607 H (<0.5) ng/mL Urine Color Yellow Urine Appearance Clear Urine pH 5.5 (4.5-8.0) Ur Specific Confluence <=1.005 (1.000-1.035) Urine Protein Negative (Negative) Urine Glucose (UA) Negative (Negative) g/dL Urine Ketones 1+ H (NEGATIVE) Urine Occult Blood Trace-intact (Negative) Urine Nitrate Negative (Negative) Urine Bilirubin Negative (NEGATIVE) Urine Urobilinogen 0.2 (0.2) E.U./dL Ur Leukocyte Esterase Negative (NEGATIVE) Urine RBC 0-1/hpf (0-5/HPF) Urine WBC None seen (0-5/HPF) Ur Squamous Epith Cells 1-5 /hpf (0-5/HPF) Ur Transition Epith Cell 0-1/hpf (0-5/HPF) Ur Renal Epithelial Cell 0-1/hpf (0-1/HPF) Urine Bacteria None seen (None) Ur Culture Indicated? Cult not indicated Vol Urine Centrifuged 10ml (spun) Chlamy pneumoniae PCR Not detected (Not Detect) Adenovirus (PCR) Not detected (Not Detect) B. pertussis DNA (PCR) Not detected (Not Detect) B.parapertussis DNA PCR Not detected (Not Detecte) Coronavirus OC43 (PCR) Not detected (Not Detect) Coronavirus HKU1 (PCR) Not detected (Not Detect) Coronavirus 229E (PCR) Not detected (Not Detect) SARS-CoV-2 (PCR) Not detected (Not Detecte) Coronavirus NL63 (PCR) Not detected (Not Detect) Human Metapneumovir PCR Not detected (Not Detect) Influenza Type A (PCR) Not detected (Not Detect) Influenza Type B (PCR) Not detected (Not Detect) M. pneumoniae (PCR) Not detected (Not Detect) Parainfluenza 1 (PCR) Not detected (Not Detect) Parainfluenza 2 (PCR) Not detected (Not Detect) Parainfluenza 3 (PCR) Not detected (Not Detect) Parainfluenza 4 (PCR) Not detected (Not Detect) RSV (PCR) Not detected (Not Detect) Entero/Rhino (PCR) Not detected (Not Detect) MDM Narrative Medical decision making narrative: I re-examined the patient and she is feeling better after hydration and initially agreed to be discharged home but then later told the nurses she did not want to go home and felt too weak to care for herself at home. No next plan is to check her urinalysis and a road test. 23:20 Patient care transferred to Dr. Beckford at the change of shift with disposition pending. <Yelena Beckford, DO - Last Filed: 01/29/25 02:01> Lab Data Labs: Lab Results 01/28/25 01/28/25 01/28/25 Range/Units 20:10 20:30 23:15 WBC 13.4 H (4.5-11.0) X10^3/uL RBC 4.18 (4.0-5.2) X10^6/uL Hgb 11.1 L (12.0-16.0) g/dL Hct 33.7 L (36-46) % MCV 80.7 (80-100) fL MCH 26.5 (26-34) PG MCHC 32.8 (30-36) % RDW 15.4 H (11.6-14.8) % Plt Count 480 H (150-400) X10^3/uL Neut % (Auto) 84.2 H (50-75) % Lymph % (Auto) 6.4 L (25-40) % Lyman % (Auto) 9.1 (3-14) % Eos % (Auto) 0.0 L (2-4) % Baso % (Auto) 0.3 (0-2) % Neut # (Auto) 63915 H (5232-1267) /uL Lymph # (Auto) 900 L (6969-8214) /uL Lyman # (Auto) 1200 H (0-900) /uL Eos # (Auto) 0 (0-450) /uL Baso # (Auto) 0 (0-100) /uL Sodium 132 L (137-145) mmol/L Potassium 4.1 (3.4-5.1) mmol/L Chloride 101 (98-107) mmol/L Carbon Dioxide 17 L (22-32) mmol/L BUN 10 (7-17) mg/dL Creatinine 0.78 (0.52-1.04) mg/dL Estimated GFR > 60 (>60) mL/min BUN/Creatinine Ratio 12.8 (6-22) Glucose 109 H (70-99) mg/dL Lactate 1.3 (0.7-2.1) mmol/L Calcium 8.9 (8.4-10.2) mg/dL Magnesium 1.7 (1.6-2.3) mg/dL Total Bilirubin 0.8 (0.2-1.3) mg/dL AST 20 (14-36) IU/L ALT 10 (<35) IU/L Alkaline Phosphatase 86 (38-126) U/L Total Protein 7.4 (6.3-8.2) g/dL Albumin 4.2 (3.5-5.0) g/dL Globulin 3.2 (1.7-4.1) g/dL Albumin/Globulin Ratio 1.3 (1.0-2.8) Procalcitonin 0.607 H (<0.5) ng/mL Urine Color Yellow Urine Appearance Clear Urine pH 5.5 (4.5-8.0) Ur Specific Confluence <=1.005 (1.000-1.035) Urine Protein Negative (Negative) Urine Glucose (UA) Negative (Negative) g/dL Urine Ketones 1+ H (NEGATIVE) Urine Occult Blood Trace-intact (Negative) Urine Nitrate Negative (Negative) Urine Bilirubin Negative (NEGATIVE) Urine Urobilinogen 0.2 (0.2) E.U./dL Ur Leukocyte Esterase Negative (NEGATIVE) Urine RBC 0-1/hpf (0-5/HPF) Urine WBC None seen (0-5/HPF) Ur Squamous Epith Cells 1-5 /hpf (0-5/HPF) Ur Transition Epith Cell 0-1/hpf (0-5/HPF) Ur Renal Epithelial Cell 0-1/hpf (0-1/HPF) Urine Bacteria None seen (None) Ur Culture Indicated? Cult not indicated Vol Urine Centrifuged 10ml (spun) Chlamy pneumoniae PCR Not detected (Not Detect) Adenovirus (PCR) Not detected (Not Detect) B. pertussis DNA (PCR) Not detected (Not Detect) B.parapertussis DNA PCR Not detected (Not Detecte) Coronavirus OC43 (PCR) Not detected (Not Detect) Coronavirus HKU1 (PCR) Not detected (Not Detect) Coronavirus 229E (PCR) Not detected (Not Detect) SARS-CoV-2 (PCR) Not detected (Not Detecte) Coronavirus NL63 (PCR) Not detected (Not Detect) Human Metapneumovir PCR Not detected (Not Detect) Influenza Type A (PCR) Not detected (Not Detect) Influenza Type B (PCR) Not detected (Not Detect) M. pneumoniae (PCR) Not detected (Not Detect) Parainfluenza 1 (PCR) Not detected (Not Detect) Parainfluenza 2 (PCR) Not detected (Not Detect) Parainfluenza 3 (PCR) Not detected (Not Detect) Parainfluenza 4 (PCR) Not detected (Not Detect) RSV (PCR) Not detected (Not Detect) Entero/Rhino (PCR) Not detected (Not Detect) MDM Narrative Medical decision making narrative: I re-examined the patient and she is feeling better after hydration and initially agreed to be discharged home but then later told the nurses she did not want to go home and felt too weak to care for herself at home. No next plan is to check her urinalysis and a road test. 23:20 Patient care transferred to Dr. Beckford at the change of shift with disposition pending. 01/28/25 Dr. Beckford: [id number] patient signed out to myself by Dr. Burkett. patient is seen and evaluated by myself. States she has been feeling little bit lightheaded, generally weak, she states she feels similar to when she has a UTI and pneumonia in the past. She notes she has had a cough for proximally 2 months she has had white discolored rated phlegm, no hemoptysis. She denies any chest pain or pressure. No syncope. She has not had any nausea or vomiting. She notes little bit of constipation today she took some extra-strength Colace and had diarrhea following that is several times. She denies any urinary symptoms. No new numbness tingling or lateralizing weakness. Workup thus far shows a white count of 13.4, hemoglobin 11.1, platelets are 480, predominance of neutrophils. Chemistries shows sodium of 132 CO2 of 17, electrolytes are otherwise appropriate with normal creatinine glucose is 109 LFTs are normal. Procalcitonin is 0.607. Lactate is 1.3 urinalysis shows 1+ ketones trace blood 1 red cell no white cells 1-5 squamous, 1 transitional 1 renal epithelial. Respiratory panel is negative. Exam: On exam patient's heart rate is regular, lungs sounds slightly coarse but no crackles, wheezes or rales. Patient is able to speak in full sentences no tachypnea appreciated or accessory muscle use. No swelling of bilateral lower extremities abdomen is soft and tender. Patient received a L of fluids, oral antibiotics. Patient has a penicillin allergy noted but it has unknown reaction to patient. Patient did ambulate to the bathroom with a walker unassisted. Chest xray: Multifocal right lung consolidation was prominent middle and lower lobes. CURB-65, 1 point. Discussed with the patient about keeping for observation she was initially reluctant to return home but after discussion she would like a to discharge home. We will start oral antibiotics here tonight with return precautions discussed with the patient and friend at bedside. All questions answered. Patient had first dose of oral antibiotic in departent. Discharge Plan Departure Patient Disposition: Home Clinical Impression: General weakness, Pneumonia Instructions: DI for Pneumonia -- Adult Activity Restrictions/Additional Instructions: Your workup today shows a multifocal pneumonia on the left side. Please take oral antibiotics as prescribed. Prescription was sent to [facility] in [place]. Please return if you develop fevers, new chills, new or worsening chest pain or shortness of breath, any passing out, new swelling of your extremities, persistent vomiting or any other new or concerning changes. Prescriptions: New amoxicillin-pot clavulanate 875-125 mg tablet 1 tab PO BID Qty: 20 0RF azithromycin 250 mg tablet See Rx Instructions .ROUTE .COMPLEX Qty: 6 0RF Rx Instructions: For 250 mg dose pack: take 500 mg today (day 1), then 250 mg for 4 days (days 2-5) No Action levothyroxine 75 mcg tablet 75 mcg PO DAILY Qty: 270 3RF hyoscyamine sulfate 0.125 mg tablet 0.125 mg PO DAILY PRN (Reason: dyspepsia) Qty: 90 0RF losartan 100 mg tablet 100 mg PO DAILY Qty: 90 3RF medroxyprogesterone [Provera] 5 mg tablet 5 mg PO DAILY Qty: 90 3RF estradiol 1 mg tablet 1 mg PO DAILY Qty: 90 3RF methocarbamol 750 mg tablet 750 - 1,500 mg PO Q6H PRN (Reason: muscle spasm) Qty: 120 5RF amlodipine 10 mg tablet 10 mg PO DAILY Qty: 90 3RF atorvastatin 10 mg tablet 10 mg PO QPM Qty: 90 3RF duloxetine 60 mg capsule,delayed release(DR/EC) 60 mg PO DAILY Qty: 90 3RF naloxone 4 mg/actuation spray,non-aerosol 4 mg intranasal Q3M dicyclomine 10 mg capsule 10 mg PO BID PRN (Reason: GI sx) Qty: 15 2RF celecoxib 100 mg capsule 100 mg PO BID PRN (Reason: pain) Qty: 180 3RF methadone 5 mg tablet 5 mg PO QID Qty: 180 0RF methadone 5 mg tablet 5 mg PO QID Qty: 180 0RF pregabalin 100 mg capsule 100 mg PO TID Qty: 90 5RF methadone 5 mg tablet 7.5 mg PO QID Qty: 180 0RF (DME) Parking Permit... See Rx Instructions .Route .MEDSUPPLY Qty: 1 0RF Rx Instructions: As directed pantoprazole 40 mg tablet,delayed release (DR/EC) 40 mg PO BID Qty: 180 3RF cevimeline 30 mg Capsule 1 cap PO TID Referrals: Lucas Anton MD [Primary Care Provider, Internal Medicine] Stand Alone Forms: Patient Portal/API
[2025-01-28 23:24] LABS: Appearance Urine UA CLEAR; Bilirubin Urine UA NEGATIVE (NEGATIVE); Color Urine UA YELLOW; Glucose Urine UA NEGATIVE (Negative); Ketones Urine UA 1+ (NEGATIVE); Leukocyte Esterase Urine UA NEGATIVE (NEGATIVE); Nitrite Urine UA NEGATIVE (Negative); Occult Blood Urine UA TRACE-INTACT (Negative); Protein Urine UA NEGATIVE (Negative); Specific Gravity Urine UA <=1.005 (1.000-1.035); Urobilinogen Urine UA 0.2 E.U./dL (0.2)
--- NOTE | 2025-01-28 23:32 | PC.NURSE ---
Pt ambulated to bathroom w/FWW. No c/o SOB, CP or dizziness. Pt reported feeling tired once back to [facility]. notified.
[2025-01-28 23:34] LABS: pH Urine UA 5.5 (4.5-8.0)
[2025-01-28 23:35] LABS: Culture Indicated Urine Cult Not Indicated
--- NOTE | 2025-01-28 23:37 | DI.RAD.S_ITS ---
PROCEDURE: XR CHEST 1V INDICATIONS: cough x 2 months, feels similar to when she had pneumonia TECHNIQUE: One view of the chest was acquired. COMPARISON: [facility], CR, XR CHEST 1V, 10/03/2024, 15:02. [facility], CR, XR CHEST 1V, 08/17/2021, 11:41. FINDINGS: Surgical changes and devices: None. Lungs and pleura: Multifocal right lung consolidation most prominent in the middle and lower lobes. Possible small right pleural effusion. No pneumothorax. The left lung is overall clear without focal consolidation. Mediastinum: Mediastinal contours appear normal. Heart size is normal. Bones and chest wall: No suspicious bony lesions. Overlying soft tissues appear unremarkable. IMPRESSION: Multifocal right lung consolidation most prominent in the middle and lower lobes. Dictated by: Alfa Kim M.D. on 01/29/2025 at 0:15 Approved by: Alfa Kim M.D. on 01/29/2025 at 0:17
[2025-01-29] VITALS: BP 145/65; PULSE 91; RESP 20; O2SAT 96
--- NOTE | 2025-01-29 00:05 | PC.NURSE ---
Imaging at bedside
[2025-01-29 00:30] VITALS: PULSE 97; RESP 34; O2SAT 95
[2025-01-29 00:31] VITALS: BP 142/65; PULSE 99; RESP 30; O2SAT 95
[2025-01-29 01:00] VITALS: BP 142/66; PULSE 87; RESP 21; O2SAT 96
[2025-01-29] MEDS: AZITHROMYCIN 250 MG TABLET 500 MG PO (01:11)
[2025-01-29] MEDS: AMOXICILLIN/CLAV 875/125 MG 1 TAB PO (01:11)
== END 2025-01-29 01:36 | disposition home or self-care (01) ==
PROVIDERS: Emergency Medicine; Emergency Provider Emergency Medicine; PCP Internal Medicine
DX: J18.9 Pneumonia, unspecified organism (principal); R53.1 Weakness; R42 Dizziness and giddiness
CPT/HCPCS: 71045; 80053; 81001; 83605; 83735; 84145; 85025; 87633; 96360; 99284; J7030

== ENCOUNTER 2025-02-02 09:34 | Inpatient (IN) | payer MEDICARE, OTHER, SELFPAY ==
[2024-10-03 18:57] VITALS: BMI 28.3
[2025-02-02] VITALS (8 sets, daily range): BP systolic 150–186; BP diastolic 7–106; PULSE 54–82; RESP 16–22; TEMP 36.4–37; O2SAT 95–100; BMI 25.7
--- NOTE | 2025-02-02 09:38 | ED.GENADULT ---
HPI - General Adult General Chief complaint: Weakness Stated complaint: Weakness Time Seen by Provider: 02/02/25 09:38 History of Present Illness HPI narrative: 84-year-old with hypertension, dyslipidemia, hypothyroidism,chronic pain issues, GERD and anxiety/depressionseen in the department on 01/28 diagnosed with pneumonia sent home on oral antibiotics feels she is not improving, increased PVCs increasing weakness and returns with medics for further evaluation. There was a discussion of hospitalization at that time. Chest x-ray showed right middle and lower lobe pneumonia. She was discharged home on Augmentin. Full respiratory panel at that time was negative. Related Data Home Medications ?Medication ?Instructions ?Recorded ?Confirmed cevimeline 30 mg capsule 1 cap PO TID 06/05/20 01/05/25 naloxone 4 mg/actuation nasal spray 4 mg intranasal Q3M 11/13/22 01/05/25 Previous Rx's ?Medication ?Instructions ?Recorded dicyclomine 10 mg capsule 10 mg PO BID PRN GI sx #15 caps 07/22/23 Parking Permit... #1 ea 11/05/23 levothyroxine 75 mcg tablet 75 mcg PO DAILY #270 tabs 02/02/24 pantoprazole 40 mg tablet,delayed 40 mg PO BID #180 tabs 02/03/24 release hyoscyamine sulfate 0.125 mg tablet 0.125 mg PO DAILY PRN dyspepsia 03/01/24 #90 tabs losartan 100 mg tablet 100 mg PO DAILY #90 tabs 04/28/24 celecoxib 100 mg capsule 100 mg PO BID PRN pain #180 caps 05/10/24 estradiol 1 mg tablet 1 mg PO DAILY #90 tabs 08/17/24 medroxyprogesterone 5 mg tablet 5 mg PO DAILY #90 tabs 08/17/24 (Provera) methocarbamol 750 mg tablet 750 - 1,500 mg (1 - 2 x 750 mg) PO 09/07/24 Q6H PRN muscle spasm #120 tabs amlodipine 10 mg tablet 10 mg PO DAILY #90 tabs 10/26/24 methadone 5 mg tablet 5 mg PO QID #180 tabs 12/09/24 methadone 5 mg tablet 5 mg PO QID #180 tabs 12/09/24 pregabalin 100 mg capsule 100 mg PO TID #90 caps 12/09/24 methadone 5 mg tablet 7.5 mg (1.5 x 5 mg) PO QID #180 01/05/25 tabs atorvastatin 10 mg tablet 10 mg PO QPM #90 tabs 01/22/25 duloxetine 60 mg capsule,delayed 60 mg PO DAILY #90 caps 01/22/25 release amoxicillin 875 mg-potassium 1 tab PO BID #20 tabs 01/29/25 clavulanate 125 mg tablet azithromycin 250 mg tablet See Rx Instructions PO .COMPLEX #6 01/29/25 tabs Allergies Allergy/AdvReac Type Severity Reaction Status Date / Time lidocaine Allergy Severe swelling Verified 01/28/25 20:17 amitriptyline Allergy Mild Rash Verified 01/28/25 20:17 bupropion (From Wellbutrin) Allergy Mild Rash Verified 01/28/25 20:17 hydroxychloroquine (From Allergy Mild Rash Verified 01/28/25 20:17 Plaquenil) lisinopril Allergy Mild Rash Verified 01/28/25 20:17 nystatin Allergy Mild Rash Verified 01/28/25 20:17 venlafaxine (From Effexor) Allergy Mild Rash Verified 01/28/25 20:17 cyclobenzaprine (From Allergy Unknown Verified 01/28/25 20:17 Flexeril) fluoride AdvReac Severe Vomiting Verified 01/28/25 20:17 hyoscyamine AdvReac Severe stomach Verified 01/28/25 20:17 cramps gabapentin AdvReac Intermediate dysphoria Verified 01/28/25 20:17 metronidazole AdvReac Intermediate GI upset Verified 01/28/25 20:17 tizanidine AdvReac Mild dry mouth Verified 01/28/25 20:17 hyoscyamine AdvReac Intermediate Uncoded 01/28/25 20:17 iron sucrose AdvReac Unknown Uncoded 01/28/25 20:17 Review of Systems Review of Systems Narrative: Pertinent positive and negative findings as per HPI Patient History Medical History Abdominal pain Acquired hypothyroidism Anemia (~2017) Anxiety Arthritis Back pain Change in bowel habits Chicken pox Chronic low back pain Chronic, continuous use of opioids Constipation Curvature of spine DDD (degenerative disc disease) Depression Depression, major, recurrent Diarrhea Do not resuscitate Early satiety Edema Esophageal dysphagia Essential hypertension Foot pain (~2019) GERD without esophagitis Irritable bowel syndrome with diarrhea Measles Menopausal syndrome Mixed hyperlipidemia Muscle pain Polyneuropathy, unspecified Primary osteoarthritis involving multiple joints Right rotator cuff tendonitis Vaginal itching Surgical History Anesthesia H/O right knee surgery (~2019) H/O tubal ligation History of bilateral tubal ligation History of cataract removal with insertion of prosthetic lens History of colonoscopy (~2018) History of esophagogastroduodenoscopy (EGD) Family History Unknown Breast cancer Father Diabetes mellitus Stroke Alcoholism Smoker Mother Diabetes mellitus History of heart disease Arthritis Brother Mental health problem Alcoholism Smoker Sister Arthritis Social History household members: none alcohol intake: never substance use type: does not use alcohol intake frequency: holidays/special occasions only Exam Initial Vital Signs Initial Vital Signs: Vital Signs Temperature 97.6 F 02/02/25 09:40 Pulse Rate 54 L 02/02/25 09:40 Respiratory Rate 16 02/02/25 09:40 Blood Pressure 186/87 H 02/02/25 09:40 Pulse Oximetry 99 02/02/25 09:40 Oxygen Delivery Method Room Air 02/02/25 09:40 General: Pale, frail, appears globally weak but not acutely toxic HEENT: Moist mucous membranes, normal sclera with reactive pupils, Respiratory: Lungs with rhonchi in the right base and middle lobes Cardiac: Regular rate and rhythm no murmurs no bruits Abdomen: Soft, nontender, no rebound or guarding, no flank pain Skin: Pale but perfused Neurologic: Globally weak but otherwise Grossly neurologically intact with no obvious asymmetries or abnormalities Extremities: No trauma, no lower extremity edema Psych: Cooperative, appropriate insight and affect Course Orders Ordered: ED Orders 02/02/25 10:21 Venous Blood Gas Routine 02/02/25 11:00 Blood Culture Stat 02/02/25 12:18 Urinalysis and Microscopic Stat Acetaminophen (Acetaminophen 325 Mg Tablet) 650 mg PO Q6H PRN PRN Reason: Fever/Mild Pain (1-3) Amlodipine Besylate (Amlodipine 5 Mg Tablet) 10 mg PO DAILY ANUPAM Atorvastatin Calcium (Atorvastatin 20 Mg Tablet) 10 mg PO QPM ANUPAM Celecoxib (Celecoxib 100 Mg Capsule) 100 mg PO BID PRN PRN Reason: pain Dicyclomine HCl (Dicyclomine 10 Mg Capsule) 10 mg PO BID PRN PRN Reason: GI sx Duloxetine HCl (Duloxetine 30 Mg Capsule.Dr) 60 mg PO DAILY [facility] Enoxaparin Sodium (Enoxaparin 40 Mg/0.4 Ml Syringe) 40 mg SUBCUT DAILY [facility] Hyoscyamine (Hyoscyamine 0.125 Mg Tablet) 0.125 mg PO DAILY PRN PRN Reason: Dyspepsia Piperacillin Sod/Tazobactam (Sod 3.375 gm/ Sodium Chloride) 100 mls @ 25 mls/hr IV Q8H [facility] Levothyroxine Sodium (Levothyroxine 75 Mcg Tablet) 75 mcg PO DAILY [facility] Losartan Potassium (Losartan 50 Mg Tablet) 100 mg PO DAILY [facility] Methadone HCl (Methadone Intensol 10 Mg/Ml Oral.Conc) 7.5 mg PO QID [facility] Last Admin: 02/02/25 19:04 Dose: 7.5 mg Naloxone HCl (Naloxone 0.4 Mg/Ml Vial) 0.2 mg IV Q2MIN PRN PRN Reason: Opiate Reversal Non-Formulary Medication (Cevimeline) 1 cap PO TID [facility] Non-Formulary Medication (Estradiol) 1 mg PO DAILY [facility] Non-Formulary Medication (Medroxyprogesterone [Provera]) 5 mg PO DAILY [facility] Non-Formulary Medication (Methadone) 7.5 mg PO QID [facility] Non-Formulary Medication (Methocarbamol) 500 mg PO Q6H PRN PRN Reason: muscle spasm Non-Formulary Medication (Pregabalin) 100 mg PO TID [facility] Pantoprazole Sodium (Pantoprazole Dr 40 Mg Tablet) 40 mg PO BID [facility] Discontinued Medications Sodium Chloride (Normal Saline 0.9%) 1,000 mls @ 1,000 mls/hr IV BOLUS ONE Stop: 02/02/25 10:43 Last Infusion: 02/02/25 12:50 Dose: Infused Documented By: Admin: 02/02/25 11:30 Dose: 1,000 mls/hr Documented By: XOCHILT Piperacillin Sod/Tazobactam (Sod 4.5 gm/ Sodium Chloride) 100 mls @ 200 mls/hr IV STAT ONE Stop: 02/02/25 09:45 Last Infusion: 02/02/25 12:05 Dose: Infused Documented By: Admin: 02/02/25 11:29 Dose: 200 mls/hr Documented By: XOCHILT Non-Formulary Medication (Atorvastatin) 10 mg PO QPM ANUPAM Vital Signs Vital signs: Vital Signs - 8 hr 02/02/25 13:00 02/02/25 15:28 02/02/25 15:42 Pulse Rate 79 77 78 Respiratory Rate 20 22 18 Blood Pressure 165/74 H 176/106 H 173/7 H Pulse Oximetry 97 98 97 Oxygen Delivery Method Room Air Room Air Room Air 02/02/25 16:00 02/02/25 17:00 Pulse Rate 77 80 Respiratory Rate 20 18 Blood Pressure 179/77 H 168/83 H Pulse Oximetry 95 97 Oxygen Delivery Method Room Air Room Air Medical Decision Making Lab Data 02/02/25 10:17 02/02/25 10:17 Labs: Lab Results 02/02/25 02/02/25 02/02/25 Range/Units 10:17 10:21 12:18 WBC 12.3 H (4.5-11.0) X10^3/uL RBC 5.30 H (4.0-5.2) X10^6/uL Hgb 13.7 (12.0-16.0) g/dL Hct 41.9 (36-46) % MCV 79.1 L (80-100) fL MCH 25.9 L (26-34) PG MCHC 32.7 (30-36) % RDW 15.5 H (11.6-14.8) % Plt Count 674 H (150-400) X10^3/uL Neut % (Auto) 69.6 (50-75) % Lymph % (Auto) 18.9 L (25-40) % [place] % (Auto) 10.4 (3-14) % Eos % (Auto) 0.3 L (2-4) % Baso % (Auto) 0.8 (0-2) % Neut # (Auto) 8500 H (5370-7219) /uL Lymph # (Auto) 2300 (1646-4643) /uL [place] # (Auto) 1300 H (0-900) /uL Eos # (Auto) 0 (0-450) /uL Baso # (Auto) 100 (0-100) /uL VBG pH 7.44 H (7.33-7.43) VBG pCO2 35.3 L (45-50) mmHg VBG pO2 28 L (35-45) mmHg VBG HCO3 24 (24-28) mmol/L VBG Total CO2 23 L (24-29) mmol/L VBG O2 Saturation 55 L (70-75) % VBG Base Excess 0.0 (0-4) mmol/L Sodium 136 L (137-145) mmol/L Potassium 3.3 L (3.4-5.1) mmol/L Chloride 100 (98-107) mmol/L Carbon Dioxide 22 (22-32) mmol/L BUN 11 (7-17) mg/dL Creatinine 0.82 (0.52-1.04) mg/dL Estimated GFR > 60 (>60) mL/min BUN/Creatinine Ratio 13.4 (6-22) Glucose 112 H (70-99) mg/dL Lactate 1.2 (0.7-2.1) mmol/L Calcium 9.1 (8.4-10.2) mg/dL Total Bilirubin 0.4 (0.2-1.3) mg/dL AST 20 (14-36) IU/L ALT 13 (<35) IU/L Alkaline Phosphatase 84 (38-126) U/L Total Creatine Kinase 34 (30-135) U/L Troponin I < 0.012 (0.01-0.034) ng/mL NT-Pro-B Natriuret Pep 2670 H (<450) pg/mL Total Protein 7.3 (6.3-8.2) g/dL Albumin 4.1 (3.5-5.0) g/dL Globulin 3.2 (1.7-4.1) g/dL Albumin/Globulin Ratio 1.3 (1.0-2.8) Procalcitonin 0.127 (<0.5) ng/mL Urine Color Yellow Urine Appearance Clear Urine pH 7.0 (4.5-8.0) Ur Specific [place] <=1.005 (1.000-1.035) Urine Protein Trace H (Negative) Urine Glucose (UA) Negative (Negative) g/dL Urine Ketones 1+ H (NEGATIVE) Urine Occult Blood Negative (Negative) Urine Nitrate Negative (Negative) Urine Bilirubin Negative (NEGATIVE) Urine Urobilinogen 0.2 (0.2) E.U./dL Ur Leukocyte Esterase Trace H (NEGATIVE) Urine RBC None seen (0-5/HPF) Urine WBC 0-1/hpf (0-5/HPF) Ur Squamous Epith Cells 1-5 /hpf (0-5/HPF) Ur Transition Epith Cell 1-5/hpf (0-5/HPF) Ur Renal Epithelial Cell 1-5/hpf H (0-1/HPF) Urine Bacteria None seen (None) Ur Culture Indicated? Cult not indicated Vol Urine Centrifuged 10ml (spun) MDM Narrative Medical decision making narrative: CC: Weakness, persistent coughing after outpatient treatment for right lower lobe pneumonia Complicating co-morbidities: Currently on treatment for pneumonia, depression, hypothyroidism, hypertension, chronic pain on methadone Data collected from: patient Social determinants of health that may influence the patients condition: Patient has been living independently Medical records reviewed: ER notes from January 29 are reviewed. She was discharged home on Augmentin and azithromycin after discussion of potential inpatient stay. Differential considered: Pneumonia, neoplastic process, pulmonary embolism, sepsis Exam documented above, pertinent findings include: Week but able to cooperate. Right sided rhonchi. Cardiac abdominal exams are benign Lab Test results independently reviewed as above. Pertinent findings: CBC shows a white count of 12.3, no significant anemia Chemistries slightly low potassium at 3.3. Normal renal function Troponin is not elevated ProBNP is elevated at 2670 Procalcitonin was elevated 5 days ago and is coming down Lactic acid is not elevated Independently reviewed EKG: Sinus rhythm at a rate of 78, PVCs with episodes of bigeminy noticed on telemetry. EKG does not show acute ischemic changes Imaging studies independently reviewed: Chest x-ray on January 28 showed multifocal right lung consolidation in the middle and right lower lobes. With the worsening symptoms CT angiogram was ordered today and shows: No pulmonary embolus, chronic interstitial changes worse since 2000 worsening in the right base compared to September of 2024. Superimposed airspace disease such as pneumonia including bacterial fungal and mycobacterial etiology can be considered. Recommended interval therapy and CT follow up in 3 months. There is no discussion of any type of neoplastic process appreciated Consultations: Patient has a POLST form that indicates she is DNR comfort measures however she is still living independently at home Treatments: 1 L of fluid, Zosyn antibiotics Re-evaluations: Patient is feeling somewhat better, she has no oxygen requirements still is weak enough that she is having trouble getting out of bed independently Discussion: 84-year-old woman with right-sided multifocal pneumonia seen initially on November 28 admission offered at that time but declined she has been taking Augmentin and azithromycin at home and feels that her coughing and overall weakness or getting significantly worse. She is not showing signs of sepsis at this point she is not requiring oxygen, her weakness is progressive CT scan was done and showed chronic interstitial changes and presumed superimposed airspace disease consistent with pneumonia. She was given Zosyn in the emergency department. She is not coughing enough to produce any sputum. She had a full respiratory panel done on the that was unremarkable and not repeated today. She is also found to have slight heart failure and may benefit from Lasix. At this point she is hemodynamically stable, not showing overt signs of significant volume overload and I am not going to continue with either fluids or Lasix. We will restart her methadone at 7.5 mg q.i.d.. Due to her overall weakness and presumed failed outpatient antibiotic treatment for her right-sided pneumonia I am going to recommend hospitalization with which she completely agrees today. Discharge Plan Departure Patient Disposition: Home Clinical Impression: Weakness Pneumonia Qualifiers: Pneumonia type: due to unspecified organism Congestive heart failure Qualifiers: Heart failure type: unspecified Heart failure chronicity: unspecified Qualified Code(s): I50.9 - Heart failure, unspecified
--- NOTE | 2025-02-02 09:44 | DI.CT.S_ITS ---
PROCEDURE: CT ANGIO CHEST PE PROTOCOL INDICATIONS: persistent dyspnea TECHNIQUE: After the administration of intravenous contrast, 2 mm thick sections acquired from the pulmonary apices to the posterior costophrenic angles. 3-dimensional maximum intensity projection (MIP) coronal and sagittal reformats were then acquired through the thorax. For radiation dose reduction, the following was used: automated exposure control, adjustment of mA and/or kV according to patient size. COMPARISON: [facility], CT, CT CHEST ABD PEL W CON, 06/01/2020, 9:32. [facility], CT, CT ABDOMEN PELVIS W CON, 10/03/2024, 16:05. FINDINGS: Image quality: Diagnostic. Pulmonary arteries: Pulmonary arteries are normal in size, and demonstrate no intraluminal filling defects to suggest central pulmonary embolism. Lower Neck: No enlarged lymph nodes. Thyroid: No thyroid nodules which require sonographic follow up, per consensus guidelines. Axillae: No enlarged lymph nodes. Chest Wall: Unremarkable. Bones: Unremarkable. Lungs and Pleura: There is chronic interstitial changes identified within the lungs including reticular opacities. The appearance appears more prominent in the right base when compared to 10/03/2024. In addition, scattered areas of micro nodularity including ground-glass appearing foci are present in the right lung most prominent in the upper lobe. Heart: Heart size is enlarged. No pericardial effusion. Thoracic Vessels: No aortic aneurysm. Mediastinum and [place]: No enlarged lymph nodes. Esophagus: No wall thickening. Prominent hiatal hernia. Upper Abdomen: Visualized upper abdomen solid organs and bowel loops appear normal. IMPRESSION: No pulmonary embolus. Overall appearance of chronic interstitial changes demonstrating interval worsening since 2020 as well as worsening in the right base compared to 10/03/2024. Superimposed airspace disease such as pneumonia as well as etiology including fungal or mycobacterial should be considered given presence of ground-glass nodules. Recommend interval therapy and CT follow-up in 3 months. Dictated by: Mary Wyatt M.D. on 02/02/2025 at 10:53 Approved by: Mary Wyatt M.D. on 02/02/2025 at 10:57
--- NOTE | 2025-02-02 09:45 | EKG_ITS ---
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
[2025-02-02 10:25] LABS: Base Excess VBG 0.0 mmol/L (0-4); HCO3 VBG 24 mmol/L (24-28); Oxygen Saturation VBG 55 % (70-75); PCO2 VBG 35.3 mmHg (45-50); PO2 VBG 28 mmHg (35-45); Total CO2 VBG 23 mmol/L (24-29); pH VBG 7.44 (7.33-7.43)
[2025-02-02 10:49] LABS: Add Manual Diff / Slide Review NO; Hematocrit 41.9 % (36-46); Hemoglobin 13.7 g/dL (12.0-16.0); Lymphocytes Absolute Auto 2300 /uL (1100-4500); Mean Corpuscular HGB Conc 32.7 % (30-36); Mean Corpuscular Hemoglobin 25.9 PG (26-34); Mean Corpuscular Volume 79.1 fL (80-100); Platelet Count 674 X10^3/uL (150-400)
[2025-02-02 11:03] LABS: Lactate (Lactic Acid) 1.2 mmol/L (0.7-2.1)
[2025-02-02 11:04] LABS: Alanine Aminotransferase 13 IU/L (<35); Albumin 4.1 g/dL (3.5-5.0); Albumin Globulin Ratio 1.3 (1.0-2.8); Alkaline Phosphatase 84 U/L (38-126); Blood Urea Nitrogen 11 mg/dL (7-17); Calcium 9.1 mg/dL (8.4-10.2); Carbon Dioxide 22 mmol/L (22-32); Chloride 100 mmol/L (98-107); Estimated Glomerular Filt Rate > 60 mL/min (>60); Globulin 3.2 g/dL (1.7-4.1); Glucose 112 mg/dL (70-99); HEMOLYSIS < 15 (0-50); Potassium 3.3 mmol/L (3.4-5.1); Sodium 136 mmol/L (137-145); Total Protein 7.3 g/dL (6.3-8.2)
[2025-02-02 11:06] LABS: Creatine Kinase 34 U/L (30-135)
[2025-02-02 11:14] LABS: NT-proBNP (BNP-Adult 18+) 2670 pg/mL (<450)
[2025-02-02 11:17] LABS: Troponin I < 0.012 ng/mL (0.01-0.034)
[2025-02-02 11:20] LABS: Procalcitonin 0.127 ng/mL (<0.5)
[2025-02-02] MEDS: PIPERACILLIN/TAZO 4.5 GM in SODIUM CHLORIDE 0.9% 100 ML IV (11:29)
[2025-02-02] MEDS: SODIUM CHLORIDE 0.9% 1,000 ML 1000 ML IV (11:30)
[2025-02-02 12:53] LABS: Appearance Urine UA CLEAR; Bilirubin Urine UA NEGATIVE (NEGATIVE); Color Urine UA YELLOW; Glucose Urine UA NEGATIVE (Negative); Ketones Urine UA 1+ (NEGATIVE); Leukocyte Esterase Urine UA TRACE (NEGATIVE); Nitrite Urine UA NEGATIVE (Negative); Occult Blood Urine UA NEGATIVE (Negative); Protein Urine UA TRACE (Negative); Specific Gravity Urine UA <=1.005 (1.000-1.035); Urobilinogen Urine UA 0.2 E.U./dL (0.2)
[2025-02-02 12:55] LABS: pH Urine UA 7.0 (4.5-8.0)
[2025-02-02 13:02] LABS: Culture Indicated Urine Cult Not Indicated
--- NOTE | 2025-02-02 19:02 | PM.HP.IH.1 ---
History of Present Illness History of Present Illness Date Patient Seen: 02/02/25 Time Patient Seen: 18:40 Chief complaint: Weakness Narrative: 84-year-old woman under the primary care of Dr. Lucas Anton was seen in this hospital's emergency department on 01/28/2025 with generalized weakness, cough, poor oral intake and generalized failure to thrive over 1-2 weeks, admitting up to 2 months she is been progressively getting weaker with chronic cough. She was found to have a dense right lower lobe infiltrate and started on antibiotics. She was offered hospital admission but declined and decided to go home. He had a progressive ongoing weakness a friend urged her to go to the emergency department, where she is seen and profoundly weak, and admitted for further management and evaluation. She was started on IV Zosyn in the emergency department for possible nosocomial pneumonia given recent exposure. She ran out of her chronic methadone 7.5 mg q.i.d. last week which she is on for palliative management of chronic back pain due to her inability to present to the outpatient office for routine chronic pain follow-up. Past medical history: See below Medications: See below Exam: GENERAL: This is a well-nourished, well-developed patient, in no apparent distress, appears weak, stating considerable pain. HEAD: Atraumatic. Normocephalic. No temporal or scalp tenderness. EYES: Pupils equal round and reactive. Extraocular motions intact. No scleral icterus. No injection or drainage. ENT: Mucous membranes pink and moist. NECK: Trachea midline. No JVD, bruits or lymphadenopathy. Supple, nontender, no meningeal signs. CARDIOVASCULAR: Regular rate and rhythm without murmurs, gallops, or rubs. RESPIRATORY: Clear to auscultation. GASTROINTESTINAL: Abdomen soft, non-tender, nondistended. EXTREMITIES: No clubbing, cyanosis, or edema. BACK: Nontender without deformity or crepitance. No flank tenderness. NEUROLOGIC: Alert, oriented, speech fluent, full upper and lower motor strength, no focal deficits evident. DERMATOLOGIC: No rashes or skin lesions. Chest xray 01/28/2025: Multifocal right lung consolidation most prominent in the middle and lower lobes. Chest CTA 02/02/2025: No pulmonary embolus. Overall appearance of chronic interstitial changes demonstrating interval worsening since 2020 as well as worsening in the right base compared to 10/03/2024. Superimposed airspace disease such as pneumonia as well as etiology including fungal or mycobacterial should be considered given presence of ground-glass nodules. Recommend interval therapy and CT follow-up in 3 months. EKG: Sinus rhythm with frequent PVCs, at 78 beats per minute, left atrial enlargement, septal Q-waves Impression: 1. Nosocomial pneumonia. 2. Generalized weakness and failure to thrive due to 1. 3. Chronic back pain, on palliative methadone therapy. 4. Irritable bowel syndrome with diarrhea. 5. GERD. 6. Hypertension. 7. Hyperlipidemia 8. Hypothyroidism. 9. Depression. 10. Anxiety. 11. Polyneuropathy Plan: -admit to hospitalist inpatient -IV Zosyn 3.375 mg IV q.8 hours -consult PT and OT -consult discharge planning, may require assisted facility placement -continue routine home methadone dosing -continue routine home medications DVT prophylaxis: Subcutaneous enoxaparin Code status: Do not resuscitate. She has a close friend who was involved with surrogate decision making. COUNT INCLUDES THE [facility] Medical History Abdominal pain Acquired hypothyroidism Anemia (~2017) Anxiety Arthritis Back pain Change in bowel habits Chicken pox Chronic low back pain Chronic, continuous use of opioids Constipation Curvature of spine DDD (degenerative disc disease) Depression Depression, major, recurrent Diarrhea Do not resuscitate Early satiety Edema Esophageal dysphagia Essential hypertension Foot pain (~2019) GERD without esophagitis Irritable bowel syndrome with diarrhea Measles Menopausal syndrome Mixed hyperlipidemia Muscle pain Polyneuropathy, unspecified Primary osteoarthritis involving multiple joints Right rotator cuff tendonitis Vaginal itching Surgical History Anesthesia H/O right knee surgery (~2019) H/O tubal ligation History of bilateral tubal ligation History of cataract removal with insertion of prosthetic lens History of colonoscopy (~2018) History of esophagogastroduodenoscopy (EGD) Family History Unknown Breast cancer Father Diabetes mellitus Stroke Alcoholism Smoker Mother Diabetes mellitus History of heart disease Arthritis Brother Mental health problem Alcoholism Smoker Sister Arthritis Social History household members: none alcohol intake: never substance use type: does not use Meds Home Medications and Allergies Home Medications ?Medication ?Instructions ?Recorded ?Confirmed ?Type cevimeline 30 mg capsule 1 cap PO TID 06/05/20 01/05/25 History naloxone 4 mg/actuation nasal spray 4 mg intranasal Q3M 11/13/22 01/05/25 History dicyclomine 10 mg capsule 10 mg PO BID PRN GI sx #15 caps 07/22/23 01/05/25 Rx Parking Permit... #1 ea 11/05/23 12/09/24 Rx levothyroxine 75 mcg tablet 75 mcg PO DAILY #270 tabs 02/02/24 01/05/25 Rx pantoprazole 40 mg tablet,delayed 40 mg PO BID #180 tabs 02/03/24 01/05/25 Rx release hyoscyamine sulfate 0.125 mg tablet 0.125 mg PO DAILY PRN dyspepsia 03/01/24 01/05/25 Rx #90 tabs losartan 100 mg tablet 100 mg PO DAILY #90 tabs 04/28/24 01/05/25 Rx celecoxib 100 mg capsule 100 mg PO BID PRN pain #180 caps 05/10/24 01/05/25 Rx estradiol 1 mg tablet 1 mg PO DAILY #90 tabs 08/17/24 01/05/25 Rx medroxyprogesterone 5 mg tablet 5 mg PO DAILY #90 tabs 08/17/24 01/05/25 Rx (Provera) methocarbamol 750 mg tablet 750 - 1,500 mg (1 - 2 x 750 mg) PO 09/07/24 01/05/25 Rx Q6H PRN muscle spasm #120 tabs amlodipine 10 mg tablet 10 mg PO DAILY #90 tabs 10/26/24 01/05/25 Rx methadone 5 mg tablet 5 mg PO QID #180 tabs 12/09/24 01/05/25 Rx methadone 5 mg tablet 5 mg PO QID #180 tabs 12/09/24 01/05/25 Rx pregabalin 100 mg capsule 100 mg PO TID #90 caps 12/09/24 01/05/25 Rx methadone 5 mg tablet 7.5 mg (1.5 x 5 mg) PO QID #180 01/05/25 01/05/25 Rx tabs atorvastatin 10 mg tablet 10 mg PO QPM #90 tabs 01/22/25 Rx duloxetine 60 mg capsule,delayed 60 mg PO DAILY #90 caps 01/22/25 Rx release amoxicillin 875 mg-potassium 1 tab PO BID #20 tabs 01/29/25 Rx clavulanate 125 mg tablet azithromycin 250 mg tablet See Rx Instructions PO .COMPLEX #6 01/29/25 Rx tabs Allergies Allergy/AdvReac Type Severity Reaction Status Date / Time lidocaine Allergy Severe swelling Verified 01/28/25 20:17 amitriptyline Allergy Mild Rash Verified 01/28/25 20:17 bupropion (From Wellbutrin) Allergy Mild Rash Verified 01/28/25 20:17 hydroxychloroquine (From Allergy Mild Rash Verified 01/28/25 20:17 Plaquenil) lisinopril Allergy Mild Rash Verified 01/28/25 20:17 nystatin Allergy Mild Rash Verified 01/28/25 20:17 venlafaxine (From Effexor) Allergy Mild Rash Verified 01/28/25 20:17 cyclobenzaprine (From Allergy Unknown Verified 01/28/25 20:17 Flexeril) fluoride AdvReac Severe Vomiting Verified 01/28/25 20:17 hyoscyamine AdvReac Severe stomach Verified 01/28/25 20:17 cramps gabapentin AdvReac Intermediate dysphoria Verified 01/28/25 20:17 metronidazole AdvReac Intermediate GI upset Verified 01/28/25 20:17 tizanidine AdvReac Mild dry mouth Verified 01/28/25 20:17 hyoscyamine AdvReac Intermediate Uncoded 01/28/25 20:17 iron sucrose AdvReac Unknown Uncoded 01/28/25 20:17 Review of Systems Review of Systems ROS: Yes All systems reviewed with the patient and are negative except as otherwise documented Exam Vital Signs (past 8 hours): - 02/02/25 13:00 02/02/25 15:28 02/02/25 15:42 Pulse Rate 79 77 78 Respiratory Rate 20 22 18 Blood Pressure 165/74 H 176/106 H 173/7 H Pulse Oximetry 97 98 97 Oxygen Delivery Method Room Air Room Air Room Air 02/02/25 16:00 02/02/25 17:00 Pulse Rate 77 80 Respiratory Rate 20 18 Blood Pressure 179/77 H 168/83 H Pulse Oximetry 95 97 Oxygen Delivery Method Room Air Room Air Oxygen Delivery Method Room Air Objective Labs 02/02/25 10:17 02/02/25 10:17 Labs: Laboratory Results - last 24 hr 02/02/25 02/02/25 02/02/25 10:17 10:21 12:18 WBC 12.3 H RBC 5.30 H Hgb 13.7 Hct 41.9 MCV 79.1 L MCH 25.9 L MCHC 32.7 RDW 15.5 H Plt Count 674 H Neut % (Auto) 69.6 Lymph % (Auto) 18.9 L Harvey % (Auto) 10.4 Eos % (Auto) 0.3 L Baso % (Auto) 0.8 Neut # (Auto) 8500 H Lymph # (Auto) 2300 Harvey # (Auto) 1300 H Eos # (Auto) 0 Baso # (Auto) 100 VBG pH 7.44 H VBG pCO2 35.3 L VBG pO2 28 L VBG HCO3 24 VBG Total CO2 23 L VBG O2 Saturation 55 L VBG Base Excess 0.0 Sodium 136 L Potassium 3.3 L Chloride 100 Carbon Dioxide 22 BUN 11 Creatinine 0.82 Estimated GFR > 60 BUN/Creatinine Ratio 13.4 Glucose 112 H Lactate 1.2 Calcium 9.1 Total Bilirubin 0.4 AST 20 ALT 13 Alkaline Phosphatase 84 Total Creatine Kinase 34 Troponin I < 0.012 NT-Pro-B Natriuret Pep 2670 H Total Protein 7.3 Albumin 4.1 Globulin 3.2 Albumin/Globulin Ratio 1.3 Procalcitonin 0.127 Urine Color Yellow Urine Appearance Clear Urine pH 7.0 Ur Specific [place] <=1.005 Urine Protein Trace H Urine Glucose (UA) Negative Urine Ketones 1+ H Urine Occult Blood Negative Urine Nitrate Negative Urine Bilirubin Negative Urine Urobilinogen 0.2 Ur Leukocyte Esterase Trace H Urine RBC None seen Urine WBC 0-1/hpf Ur Squamous Epith Cells 1-5 /hpf Ur Transition Epith Cell 1-5/hpf Ur Renal Epithelial Cell 1-5/hpf H Urine Bacteria None seen Ur Culture Indicated? Cult not indicated Vol Urine Centrifuged 10ml (spun) Assessment & Plan Time-Based Coding :: [TOTAL MINUTES] spent with patient and on the chart (including review of chart, obtaining history, exam, reviewing outside data, placing orders, documenting exam and treatment plan, and counseling patient) on [DATE]. Quality MIPS - Admit I confirm the patient?s Advance Care Plan is present, Code status is documented, Surrogate decision maker is in patient?s record [If Yes, STOP here]: Yes [facility] - Meds 'Current medications' to include all prescriptions, [id number] products, herbals, cannabis/cannabidiol products, and vitamin/mineral/dietary (nutritional) supplements. I have utilized all available resources to obtain, update, or review the patient?s current medications. [If Yes, STOP here]: Yes [employer] Machine [employer] Automatic Document charge(s): No Charge Codes Initial inpatient/observation care: [id number]
[2025-02-02] MEDS: METHADONE INTENSOL 10 MG/ML ORAL.CONC 7.5 MG PO (19:04)
[2025-02-02] MEDS: PIPERACILLIN/TAZO 3.375 GM in SODIUM CHLORIDE 0.9% 100 ML IV (20:18)
[2025-02-02] MEDS: PANTOPRAZOLE DR 40 MG TABLET PO (21:01)
[2025-02-02] MEDS: CELECOXIB 100 MG CAPSULE PO (21:01)
[2025-02-02] MEDS: DICYCLOMINE 10 MG CAPSULE PO (21:01)
[2025-02-02] MEDS: PREGABALIN 25 MG CAPSULE 100 MG PO (21:02)
[2025-02-03] MEDS: ACETAMINOPHEN 325 MG TABLET 650 MG PO ×3 (00:06→18:59)
[2025-02-03 03:00] VITALS: BP 130/65; PULSE 69; RESP 16; TEMP 37.4; O2SAT 97
[2025-02-03] MEDS: KETOROLAC 30 MG/ML VIAL IV (03:14)
[2025-02-03] MEDS: PIPERACILLIN/TAZO 3.375 GM in SODIUM CHLORIDE 0.9% 100 ML IV ×3 (03:15→18:59)
[2025-02-03 08:00] VITALS: BP 139/72
[2025-02-03] MEDS: LOSARTAN 50 MG TABLET 100 MG PO (08:00)
[2025-02-03] MEDS: ENOXAPARIN 40 MG/0.4 ML SYRINGE SUBCUT (08:01)
[2025-02-03] MEDS: LEVOTHYROXINE 75 MCG TABLET PO (08:01)
[2025-02-03] MEDS: medroxyPROGESTERone 10 MG TABLET 5 MG PO (08:01)
[2025-02-03] MEDS: PANTOPRAZOLE DR 40 MG TABLET PO ×2 (08:03→20:15)
[2025-02-03] MEDS: CELECOXIB 100 MG CAPSULE PO ×2 (08:03→21:27)
[2025-02-03 08:04] VITALS: BP 139/72; PULSE 65; RESP 14; TEMP 36.4; O2SAT 100
[2025-02-03] MEDS: DICYCLOMINE 10 MG CAPSULE PO (08:04)
[2025-02-03] MEDS: HYOSCYAMINE 0.125 MG TABLET PO (08:04)
[2025-02-03] MEDS: PREGABALIN 25 MG CAPSULE 100 MG PO ×3 (09:36→20:15)
[2025-02-03] MEDS: METHADONE INTENSOL 10 MG/ML ORAL.CONC 7.5 MG PO ×4 (09:42→20:15)
--- NOTE | 2025-02-03 10:42 | OT.IP.EVAL ---
Past Medical History (Last Reviewed 02/02/25 @ 19:03 by Lucas Anton MD) Abdominal pain Acquired hypothyroidism Anemia (~2018) Anxiety Arthritis Back pain Change in bowel habits Chicken pox Chronic low back pain Chronic, continuous use of opioids Constipation Curvature of spine DDD (degenerative disc disease) Depression Depression, major, recurrent Diarrhea Do not resuscitate Early satiety Edema Esophageal dysphagia Essential hypertension Foot pain (~2019) GERD without esophagitis Irritable bowel syndrome with diarrhea Measles Menopausal syndrome Mixed hyperlipidemia Muscle pain Polyneuropathy, unspecified Primary osteoarthritis involving multiple joints Right rotator cuff tendonitis Vaginal itching Surgical History (Last Reviewed 02/02/25 @ 19:03 by Lucas Anton MD) Anesthesia H/O right knee surgery (~2019) H/O tubal ligation History of bilateral tubal ligation History of cataract removal with insertion of prosthetic lens History of colonoscopy (~2018) History of esophagogastroduodenoscopy (EGD) Occupational Therapy Inpatient Evaluation/Re-Eval M1 OT IP Prior Functional Status Start: 02/03/25 10:21 Freq: Status: Active Protocol: Document 02/03/25 09:45 SYED (Rec: 02/03/25 10:41 [facility] Desktop) Medical Review Prior Functional Status Medical History Yes Reviewed Communication Pt is able to make her needs known Mobility and Gait Pt amb with 4WW. Pt reported that she amb outdoors regularly prior to 01/28 Activities of Daily Pt was I with BADLs, cooking, medication mgmt, light Living and IADL's housework, and assisting in grocery shopping. Prior Functional Pt has someone to clean her home 2x/mo Level (Other details ) Social History Household Members none Living Arrangements House Home Environment Standard Height Toilet,Walk in Shower,Ramp Home Equipment Four Wheel Walker,Shower Seat without Backrest,Edger Operator, Grab Bars Near Toilet,Grab Bars In Shower Additional Social Pt reports she has four good friends who check in on History Comment her regularly. M2 OT-IP Current Condition Start: 02/03/25 10:21 Freq: Status: Active Protocol: Document 02/03/25 09:45 SYED (Rec: 02/03/25 10:41 [facility] Desktop) Occupational Therapy Current Condition Current Condition Evaluation Date 02/03/25 Treatment Diagnosis pneumonia, failure to thrive, decreased self care Diagnosis Onset Date 02/02/25 M3 OT- IP Subjective and Pain Start: 02/03/25 10:21 Freq: Status: Active Protocol: Document 02/03/25 09:45 SYED (Rec: 02/03/25 10:41 [facility]- Subjective Occupational Therapy Visit Type Type Initial Evaluation Visit Start Time 09:45 Visit Stop Time 10:15 Occupational Therapy Visit Comments Patient Comments Pt was up in chair on entrance of OT and agreeable to participating in OT eval. Patient/Caregiver To get enough strength so I can take care of myself. Goals OT Pain Assessment Pain Present Pain Present Denied Pain M4 OT- IP ADL's Start: 02/03/25 10:21 Freq: Status: Active Protocol: Document 02/03/25 09:45 SYED (Rec: 02/03/25 10:41 [facility] OT [id number] Comments OT Self-Feeding not a meal time Comments OT ADL-Grooming General Evaluation Grooming Ability Standby Assistance Areas Needing Retrieving/Set-up of Grooming Items Assistance Comments OT Grooming Comments Pt leans heavily on the counter with one UE while brushing her hair. OT ADL-Oral Care General Eval Oral Care Ability Standby Assistance Areas of Assistance Retrieving/Set-Up of Items Comments Oral Care Comments Pt leans heavily on counter with B UEs while performing oral hygiene. OT ADL-Dressing General Eval Lower Body Dressing Standby Assistance Ability Areas Needing Socks Assistance Comments OT Dressing Comments Pt dons/doffs socks using crossed leg position. OT ADL-Toileting Comments OT Toileting declined Comments OT ADL-Bathing Comments OT Bathing Comments not observed M5 OT- IP IADL's Start: 02/03/25 10:21 Freq: Status: Active Protocol: Document 02/03/25 09:45 SYED (Rec: 02/03/25 10:41 [facility]) OT-Instrumental Activities of Daily Living Deficits IADL Deficits No Deficits Identified Home Safety Awareness Awareness of Need Good Awareness for Assistance at Home Ability to Problem Able to Problem Solve Solve Emergency Situations Medication Management Medication No Deficits Identified Management Money Management Money Management No Deficits Identified Meal Preparation Meal Preparation May benefit from assist due to activity intolerance for Comments short period of time. Filler In Filler In Caregiver Provides Assist Driving Driving Caregiver Provides Assist M6 OT- IP Functional Cognition Start: 02/03/25 10:21 Freq: Status: Active Protocol: Document 02/03/25 09:45 SINDYONEIDADELMA (Rec: 02/03/25 10:41 [facility] Desktop) Cognitive Factors Limiting Selfcare Function Cognitive Ability Level of Alertness Alert Patient Orientation Name,Place,Situation Attention Span Capable of Focused Attention,Capable of Sustained Ability Attention Ability to Follow Able to Follow One Step Commands,Able to Follow Multi- Commands Step Commands Memory Description No Deficits Noted Safety Awareness No Deficits Noted Problem Solving No deficits Noted Ability OT- Vision and Hearing OT- Hearing Assessment OT- Hearing WFL Assessment OT- Vision Assessment Visual Acuity WFL Vision Assessment Uses a magnifier for fine print Comments M7 OT- IP Mobility and Balance Start: 02/03/25 10:21 Freq: Status: Active Protocol: Document 02/03/25 09:45 MICHAELBILLIEONEIDADELMA (Rec: 02/03/25 10:41 [facility] Desktop) OT-Transfer Assessment Sit to and From Stand Sit to and from Standby Assistance Stand Transfers Transfer Ability Contact Guard Assistance Technique Transfer Destination Chair Devices Transfer Assistive Gait Belt,Front Wheeled Walker Devices Comments Mobility Comments BP 112/61, HR 65, O2 sat on RA 95. Pt uses UE to push up to stand. Pt amb with FWW to sink for sink side ADLs and returns to recliner. Pt with decreased safety awareness during tf, not reaching back with UEs and instead plopping into the seat. OT- Gait Assessment Gait Gait Assistance Standby Assistance,Contact Guard Assist Required: Distance (Feet) 20 Assistive Devices Assistive Device Gait Belt,Front Wheeled Walker Comments Gait Ability Pt amb with FWW to sink and back for BADLs with SBA to Comments CGA. Pt performs amb slowly with somewhat forward flexed posture. OT- Balance Assessment Sitting Balance and Reactions Static Sitting Normal Balance Ability Dynamic Sitting Good Balance Ability Standing Balance and Reactions Static Standing Good Balance Ability Dynamic Standing Fair Balance Ability M8 OT- IP Objective Assessments Start: 02/03/25 10:21 Freq: Status: Active Protocol: Document 02/03/25 09:45 MICHAELBILLIEONEIDADELMA (Rec: 02/03/25 10:41 [facility] Desktop) OT Gross Range of Motion Upper Extremity Range of Motion Assessment Bilaterally Impaired ROM Impairments AROM R shoulder ~60, L ~120. Arthritic changes to B hands with R>L. OT Strength Upper Extremity Strength Assessment Bilaterally Impaired Shoulder L3+, R NT Elbow L flex/ext 4-; R flex 3+, ext 4- Hand B 4 Hand Business Performance Analyst Strength Hand Dominance Right OT- Coordination Assessment Comments Coordination thumb to fingertips intact B Comments OT-Muscle Tone Assessment Muscle Tone WNL Yes OT Sensation Assessment Comments Summary Comments No sensory deficits noted Edema Edema Absent M9 OT- IP Assessment and Plan Start: 02/03/25 10:21 Freq: Status: Active Protocol: Document 02/03/25 09:45 [facility] (Rec: 02/03/25 10:41 [facility] Desktop) OT Summary Assessment and Plan Potential Rehabilitation Good Potential Analytic Complexity Low at Evaluation Summary OT Impairments Range of Motion,Strength,Balance,Functional Mobility, Grooming,Dressing,Toileting,Bathing,Toilet Transfers, Shower Transfers,Activity Tolerance Progress Towards Progressing Toward Goals Goals Assessment Summary Pt is an 84 yo F who was brought to the ED on 01/28 with c/o weakness, cough, and failure to thrive. She was found to have pneumonia and declined being admitted to the hospital and was dc home. On 02/02 she returned to the ED due to progressive weakness. She was admitted for treatment of pneumonia. Pt lives alone and was I with all BADLs and amb daily outside prior to 01/28 at baseline. She presents with activity intolerance, muscle weakness, decreased AROM, impaired BADLs, and decreased functional mobility. Skilled OT services are appropriate to address these deficits and promote return to PLOF. Recommend dc home with HH when medically stable. Goals Grooming Goal Independent Dressing Goal Independent Toileting Goal Independent Bathing Goal Independent Toilet Transfer Goal Independent Shower Transfer Goal Independent Days to Meet Goals 5 Frequency of Treatment Other frequency 5x/wk Treatment Plan OT Treatment Plan ADL Training,Functional Mobility,Therapeutic Exercises, Patient/Family Education,Discharge Planning Discharge Recommendations OT Discharge Home,Home Health Recommendations Transportation Needs Private Vehicle at Discharge
--- NOTE | 2025-02-03 10:53 | PT.IIE ---
Surgical History (Last Reviewed 02/02/25 @ 19:03 by Lucas Anton MD) Anesthesia H/O right knee surgery (~2019) H/O tubal ligation History of bilateral tubal ligation History of cataract removal with insertion of prosthetic lens History of colonoscopy (~2018) History of esophagogastroduodenoscopy (EGD) Medical History (Last Reviewed 02/02/25 @ 19:03 by Lucas Anton MD) Abdominal pain Acquired hypothyroidism Anemia (~2017) Anxiety Arthritis Back pain Change in bowel habits Chicken pox Chronic low back pain Chronic, continuous use of opioids Constipation Curvature of spine DDD (degenerative disc disease) Depression Depression, major, recurrent Diarrhea Do not resuscitate Early satiety Edema Esophageal dysphagia Essential hypertension Foot pain (~2019) GERD without esophagitis Irritable bowel syndrome with diarrhea Measles Menopausal syndrome Mixed hyperlipidemia Muscle pain Polyneuropathy, unspecified Primary osteoarthritis involving multiple joints Right rotator cuff tendonitis Vaginal itching Physical Therapy Inpatient Evaluation/Re-Eval M1 PT IP Prior Functional Status Start: 02/03/25 12:21 Freq: Status: Active Protocol: Document 02/03/25 12:21 NW (Rec: 02/03/25 12:33 NW [id number]) Medical Review Prior Functional Status Medical History Yes Reviewed Communication Pt is able to make her needs known Mobility and Gait Pt amb with 4WW. Pt reported that she amb outdoors regularly prior to 01/28 Activities of Daily Pt was I with BADLs, cooking, medication mgmt, light Living and IADL's housework, and assisting in grocery shopping. Prior Functional Pt has someone to clean her home 2x/mo Level (Other details ) Social History Household Members none Living Arrangements House Home Environment Walk in Shower,Ramp Home Equipment Four Wheel Walker,Grab Bars In Shower Additional Social Adjustable bed History Comment M2 PT-IP Current Condition Start: 02/03/25 12:21 Freq: Status: Active Protocol: Document 02/03/25 12:21 NW (Rec: 02/03/25 12:33 NW [id number]) Physical Therapy Current Condition Current Condition Evaluation Date 02/03/25 Treatment Diagnosis Pneumonia, Weakness Onset Date 02/02/25 M3 PT-IP Subjective Start: 02/03/25 12:21 Freq: Status: Active Protocol: Document 02/03/25 12:21 NW (Rec: 02/03/25 12:33 NW [id number]) Subjective Physical Therapy Visit Type Type Initial Evaluation Visit Start Time 10:33 Visit Stop Time 10:53 Physical Therapy Visit Comments Patient Comments Pt lives alone with a good social support system of friends who assist as able and needed around the house and will community errands. Pt did come to the ER on and later went home with a dx of pneumonia. Patient Goals To return home M4 PT-IP Mobility and Gait Start: 02/03/25 12:21 Freq: Status: Active Protocol: Document 02/03/25 12:21 NW (Rec: 02/03/25 12:33 NW [id number]) PT-Bed Mobility Assessment Supine to Sit Supine to Sit Independent PT-Transfer Assessment Sit to and From Stand Sit to and from Standby Assistance Stand Equipment Transfer Assistive Gait Belt,Front Wheeled Walker Device Transfers Transfer Destination Chair Transfer Technique Stand Step Pivot Transfer Ability Level of Assist Standby Assistance Comments Mobility Comments Vitals remain stable with no drop in oxygen or signs of exertion. Gait Assessment Gait Gait Assistance Contact Guard Assist Required: Distance (Feet) 40 Able to Maintain Yes Weight Bearing Status During Gait Assistive Devices Assistive Device Gait Belt,Front Wheeled Walker Gait Deviations General Gait Pattern Within Normal Limits Comments Gait Comments Performed in single bout. Good rosangela and velocity with adequate AD management. No signs of exertion of dyspnea. Stair Climbing Assessment Comments Stair Climbing not applicable Comments PT-Balance Assessment Sitting Balance and Reactions Static Sitting Normal Balance Ability Dynamic Sitting Normal Balance Ability Standing Balance and Reactions Static Standing Good Balance Ability Dynamic Standing Fair Balance Ability Device Used fww M5 PT-IP Objective Assessments Start: 02/03/25 12:21 Freq: Status: Active Protocol: Document 02/03/25 12:21 NW (Rec: 02/03/25 12:33 NW [id number]) Orientation Orientation/Cognition Level of Alertness Alert Orientation Name,Age,Birthday,Month,Date,Year,Day of Week,Place, Situation Gross Range of Motion Lower Extremity ROM Assessment Within Functional Limits Strength Lower Extremity Strength Assessment Within Functional Limits Sensation Assessment Sensation Gross Sensation WNL M7 PT-IP Assessment and Plan Start: 02/03/25 12:21 Freq: Status: Active Protocol: Document 02/03/25 12:21 NW (Rec: 02/03/25 12:33 NW [id number]) PT Summary Assessment and Plan Potential Rehabilitation Excellent Potential Status of Condition Stable at Evaluation Summary Impairments Strength,Transfers,Gait,Activity Tolerance Progress Towards Progressing Toward Goals Goals Assessment Summary Juan is a 84 yr old female admitted for pneumonia after going home from the ED on 01/28 with the same diagnosis. Pt states at baseline pt is able to ambulate with 4WW community distances at will and has had progressive weakness over the last week that had her return to the hospital. Pt is independent with bed mobility, SBA with transfers with FWW, and CGA for gait for a single bout of 40 ft with FWW. Pt demonstrates no signs of dyspnea and maintains WNL vitals, but reports fatigue with evaluation. Education given on importance of exercise snacks throughout day to increase activity tolerance and time spent in the chair to allow for posterior rib cage expansion due to accessory muscle use with breathing. Recommending home health upon discharge to assist with returning pt to [facility]. Goals Gait Goal Standby Assistance Gait Distance 100 Days to Meet Goals 1 Frequency of Treatment Frequency Of Once a Day Treatment Treatment Plan Physical Therapy Gait Training,Therapeutic Exercise,Discharge Planning Treatment Plan Other improve activity tolerance. Recommendations and Next Treatment Focus Precautions Other Precautions no falls reported, did not perform assessment secondary to fatigue. Weight Bearing Status Weight Bearing Weight Bear as Tolerated Status Recommendations To Nursing Amount of Assist 1 Person Assist Needed Discharge Recommendations PT Discharge Home,Home with Assistance,Home Health Recommendations Other Discharge Pt has friend support system to assist as needed. Recommendations Equipment Needed for none Home Before Discharge - PT assist 1
--- NOTE | 2025-02-03 12:09 | CM.DANOTE ---
Initial DCP Assessment Note. Review EMR and PT Interview. Met with patient at bedside to discuss discharge needs.PT is alert x 4 sitting up in chair. No acute distress. Independent with walker. does not drive. Lives alone. Friend, Francesca, helps with driving: market and appointments. Payor:??[facility] PCP: ? Summary & Plan: 84 y/o female arrived to the ED via EMS c/o weakness. Admitted OBS. Dx. PNA. Plan: IV abx. PT eval. Discharge Planning/Care Management CM Discharge Assessment Start: 02/03/25 12:06 Freq: Status: Active Protocol: Document 02/03/25 12:07 (Rec: 02/03/25 12:09 [id number]) Discharge Planning Assessment Assigned Discharge Gilda Caro RN CM Steam Oven Operator Provider Dr. Anton Advance Directives? Yes: Yes; POLST Advance Directives Yes on File History Provided By Patient Prior Living House Arrangements Household Members none Type of Relies on Others transporation used prior to admit Comment Friend, Francesca Soto ph#[phone] Independent with ADL Yes: with walker 's Is patient alert and Yes oriented? Needs Assistance Home Chores / Shopping With Caregiver for No Another DME Already Rented / FWW / Walker Owned Comment TBD Barriers to No Discharge Transportation Friend, Francesca, does not drive at night. Arrangement Additional Comment TBD Review Status In Process Please Provide Date 02/03/25 Initial DC Assessment Was Performed Next Review Type Continued Stay Review
[2025-02-03 12:17] VITALS: BP 109/60; PULSE 75; RESP 14; TEMP 37; O2SAT 97
--- NOTE | 2025-02-03 14:39 | PM.PN.1 ---
Subjective Subjective Interval history: Subjective 84-year-old female who presented with a 1-2 week history of generalized weakness, cough, poor oral intake and generalized failure to thrive. She reports that over the last 2 months she has been getting progressively weaker with chronic cough. The patient was seen in the emergency room on 01/28/2025 but at that time decided to go home. She re-presented to the emergency room on 02/03/2025 and was found to have pneumonia, concern for nosocomial pneumonia and was started on IV Zosyn. In addition, the patient is chronically on methadone 7.5 mg q.i.d. but ran out of this medication 1 week ago. Objective Vitals reviewed and unremarkable Alert and oriented, well nourished, well developed, no acute distress Oropharynx moist Clear to auscultation Regular rate and rhythm without murmurs Soft, nontender, nondistended, positive bowel sounds Warm without edema Neuro grossly nonfocal but globally weak Pleasant cooperative Imaging-chest x-ray with multifocal right lung consolidation primarily in the middle and lower lobes. CTA of the chest with chronic patient changes worse since 2020. There is superimposed airspace disease. Laboratory-white blood cells 12.3, platelets 674, neutrophils elevated at 8500 but decreased from admission, potassium 3.3, BNP 2670, blood cultures no growth to date A&P Pneumonia, community-acquired On admission, the patient was covered for nosocomial pneumonia. However she has not been admitted here since September of 2024. She was in the emergency room 1 evening but unlikely to have nosocomial process from that visit. Leukocytosis resolving patient feels slightly better. -discontinue Zosyn -start ceftriaxone and azithromycin -incentive spirometry -Mucinex and Tessalon for symptom management -titrate oxygen as needed Generalized weakness and failure to thrive Likely due to acute infection; a component of the weakness may be due to the fact that the patient ran out of methadone a week ago and has been dealing with increased pain. -PT/OT -care management for discharge planning Chronic back pain, on methadone and buprenorphine -continue usual outpatient medication Hypertension Hyperlipidemia Hypothyroidism Depression Anxiety GERD Irritable bowel syndrome, diarrhea predominant Polyneuropathy All clinically stable. - Continue usual outpatient medications. Exam Vital Signs (past 8 hours): - 02/03/25 08:00 02/03/25 08:04 02/03/25 12:17 Temperature 97.5 F L 98.6 F Pulse Rate 65 75 Respiratory Rate 14 14 Blood Pressure 139/72 139/72 109/60 Pulse Oximetry 100 97 Oxygen Flow Rate 0 0 Oxygen Delivery Method Room Air Oxygen Flow Rate 0 Objective Labs 02/02/25 10:17 02/02/25 10:17 PFS Medical History Abdominal pain Acquired hypothyroidism Anemia (~2017) Anxiety Arthritis Back pain Change in bowel habits Chicken pox Chronic low back pain Chronic, continuous use of opioids Constipation Curvature of spine DDD (degenerative disc disease) Depression Depression, major, recurrent Diarrhea Do not resuscitate Early satiety Edema Esophageal dysphagia Essential hypertension Foot pain (~2019) GERD without esophagitis Irritable bowel syndrome with diarrhea Measles Menopausal syndrome Mixed hyperlipidemia Muscle pain Polyneuropathy, unspecified Primary osteoarthritis involving multiple joints Right rotator cuff tendonitis Vaginal itching Surgical History Anesthesia H/O right knee surgery (~2019) H/O tubal ligation History of bilateral tubal ligation History of cataract removal with insertion of prosthetic lens History of colonoscopy (~2018) History of esophagogastroduodenoscopy (EGD) Family History Unknown Breast cancer Father Diabetes mellitus Stroke Alcoholism Smoker Mother Diabetes mellitus History of heart disease Arthritis Brother Mental health problem Alcoholism Smoker Sister Arthritis Social History household members: none alcohol intake: never substance use type: does not use Assessment & Plan Time-Based Coding :: 40 minutes spent with patient and on the chart (including review of chart, obtaining history, exam, reviewing outside data, placing orders, documenting exam and treatment plan, and counseling patient) on [DATE].
[2025-02-03] MEDS: POTASSIUM CHLORIDE 20 MEQ TAB PO (15:52)
[2025-02-03 16:00] VITALS: BP 151/54; PULSE 61; RESP 16; TEMP 36.1; O2SAT 99
[2025-02-03] MEDS: ATORVASTATIN 20 MG TABLET 10 MG PO (17:11)
[2025-02-03 20:00] VITALS: BP 160/55; PULSE 73; RESP 16; TEMP 36.6; O2SAT 98
[2025-02-03] MEDS: DOXYCYCLINE HYCLATE 100 MG TABLET PO (20:15)
[2025-02-04] VITALS: BP 130/55; PULSE 71; RESP 18; TEMP 36.3; O2SAT 97
[2025-02-04] MEDS: PIPERACILLIN/TAZO 3.375 GM in SODIUM CHLORIDE 0.9% 100 ML IV (03:16)
[2025-02-04 04:00] VITALS: BP 148/54; PULSE 67; RESP 17; TEMP 36.2; O2SAT 94
[2025-02-04] MEDS: LEVOTHYROXINE 75 MCG TABLET PO (04:53)
[2025-02-04 05:39] LABS: Add Manual Diff / Slide Review NO; Hematocrit 32.0 % (36-46); Hemoglobin 10.9 g/dL (12.0-16.0); Lymphocytes Absolute Auto 2900 /uL (1100-4500); Mean Corpuscular HGB Conc 34.2 % (30-36); Mean Corpuscular Hemoglobin 26.9 PG (26-34); Mean Corpuscular Volume 78.6 fL (80-100); Platelet Count 611 X10^3/uL (150-400)
[2025-02-04 05:49] LABS: Blood Urea Nitrogen 16 mg/dL (7-17); Calcium 7.7 mg/dL (8.4-10.2); Carbon Dioxide 21 mmol/L (22-32); Chloride 105 mmol/L (98-107); Estimated Glomerular Filt Rate 58 mL/min (>60); Glucose 86 mg/dL (70-99); HEMOLYSIS < 15 (0-50); Potassium 3.4 mmol/L (3.4-5.1); Sodium 133 mmol/L (137-145)
--- NOTE | 2025-02-04 07:36 | PM.DS.IH.1 ---
History of Present Illness History of Present Illness Date Patient Seen: 02/04/25 Time Patient Seen: 07:20 Chief complaint: Weakness Narrative: 84-year-old woman under the primary care of Dr. Lucas Anton was seen in this hospital's emergency department on 01/28/2025 with generalized weakness, cough, poor oral intake and generalized failure to thrive over 1-2 weeks, admitting up to 2 months she is been progressively getting weaker with chronic cough. She was found to have a dense right lower lobe infiltrate and started on antibiotics. She was offered hospital admission but declined and decided to go home. He had a progressive ongoing weakness a friend urged her to go to the emergency department, where she is seen and profoundly weak, and admitted for further management and evaluation. She was started on IV Zosyn in the emergency department for possible nosocomial pneumonia given recent exposure. She ran out of her chronic methadone 7.5 mg q.i.d. last week which she is on for palliative management of chronic back pain due to her inability to present to the outpatient office for routine chronic pain follow-up. Plan: -admit to hospitalist inpatient -IV Zosyn 3.375 mg IV q.8 hours -consult PT and OT -consult discharge planning, may require [facility] facility [facility] -continue routine home methadone dosing -continue routine home medications DVT prophylaxis: Subcutaneous enoxaparin Code status: Do not resuscitate. She has a close friend who was involved with surrogate decision making. Discharge Providers Provider Date of admission: 02/02/25 21:32 Discharge Date: 02/04/25 Primary care physician: Lucas Anton MD Consults: 02/02/25 18:57 Consult to Discharge Planning Routine Comment: Consult to Occupational Therapy Evaluate & Treat Comment: Physician Instructions: Evaluate and treat Consult to Physical Therapy Evaluate & Treat Comment: Physician Instructions: Evaluate and Treat Discharge provider: Lucas Anton MD Summary Hospital Course Discharge Diagnosis: 1. Community-acquired pneumonia. 2. Generalized weakness and failure to thrive due to 1. 3. Chronic back pain, on palliative methadone therapy. 4. Irritable bowel syndrome with diarrhea. 5. GERD. 6. Hypertension. 7. Hyperlipidemia 8. Hypothyroidism. 9. Depression. 10. Anxiety. 11. Polyneuropathy Hospital Course: The patient was admitted and treated with broad-spectrum antibiotics for community-acquired pneumonia. Cultures returned showing no growth at the time of discharge. She was able to ambulate in hallway with a walker with Physical and Occupational therapy, and discharge home was recommended with home health given her significant improvement over the course of her hospitalization. She was continued on her routine home medications otherwise. No other issues arose. Status at Discharge Cognitive/behavioral status at discharge: oriented Functional status at discharge: uses cane/walker Overall status at discharge: patient is progressing back to baseline Time Spent with Patient Time spent: Less than 30 minutes Exam Vital Signs (past 8 hours): - 02/04/25 00:00 02/04/25 04:00 Temperature 97.4 F L 97.2 F L Pulse Rate 71 67 Respiratory Rate 18 17 Blood Pressure 130/55 L 148/54 H Pulse Oximetry 97 94 Oxygen Flow Rate 0 0 Oxygen Delivery Method Room Air Oxygen Flow Rate 0 Narrative Exam Narrative: GENERAL: This is a well-nourished, well-developed patient, in no apparent distress. EYES: Pupils equal round and reactive. Extraocular motions intact. No scleral icterus. No injection or drainage. ENT: Mucous membranes pink and moist. NECK: Trachea midline. No JVD, bruits or lymphadenopathy. Supple, nontender, no meningeal signs. CARDIOVASCULAR: Regular rate and rhythm without murmurs, gallops, or rubs. RESPIRATORY: Clear to auscultation. GASTROINTESTINAL: Abdomen soft, non-tender, nondistended. EXTREMITIES: No clubbing, cyanosis, or edema. NEUROLOGIC: Alert, oriented, speech fluent, full upper and lower motor strength, no focal deficits evident. DERMATOLOGIC: No rashes or skin lesions. Objective Labs 02/04/25 04:42 02/04/25 04:42 Labs: Laboratory Results - last 24 hr 02/04/25 04:42 WBC 10.4 RBC 4.07 Hgb 10.9 L Hct 32.0 L MCV 78.6 L MCH 26.9 MCHC 34.2 RDW 15.4 H Plt Count 611 H Neut % (Auto) 51.6 Lymph % (Auto) 27.7 [place] % (Auto) 8.7 Eos % (Auto) 9.6 H Baso % (Auto) 2.4 H Neut # (Auto) 5400 Lymph # (Auto) 2900 [place] # (Auto) 900 Eos # (Auto) 1000 H Baso # (Auto) 300 H Sodium 133 L Potassium 3.4 Chloride 105 Carbon Dioxide 21 L BUN 16 Creatinine 0.97 Estimated GFR 58 L BUN/Creatinine Ratio 16.5 Glucose 86 Calcium 7.7 L PFSH Medical History Abdominal pain Acquired hypothyroidism Anemia (~2017) Anxiety Arthritis Back pain Change in bowel habits Chicken pox Chronic low back pain Chronic, continuous use of opioids Constipation Curvature of spine DDD (degenerative disc disease) Depression Depression, major, recurrent Diarrhea Do not resuscitate Early satiety Edema Esophageal dysphagia Essential hypertension Foot pain (~2019) GERD without esophagitis Irritable bowel syndrome with diarrhea Measles Menopausal syndrome Mixed hyperlipidemia Muscle pain Polyneuropathy, unspecified Primary osteoarthritis involving multiple joints Right rotator cuff tendonitis Vaginal itching Surgical History Anesthesia H/O right knee surgery (~2019) H/O tubal ligation History of bilateral tubal ligation History of cataract removal with insertion of prosthetic lens History of colonoscopy (~2018) History of esophagogastroduodenoscopy (EGD) Family History Unknown Breast cancer Father Diabetes mellitus Stroke Alcoholism Smoker Mother Diabetes mellitus History of heart disease Arthritis Brother Mental health problem Alcoholism Smoker Sister Arthritis Social History household members: none alcohol intake: never substance use type: does not use Discharge Plan Discharge Plan Patient Disposition: Home Provider Discharge Comment: Followup with Dr. Anton next week Discharge orders & Medications Prescriptions: New cefuroxime axetil 500 mg tablet 500 mg PO BID Qty: 10 0RF Continued levothyroxine 75 mcg tablet 75 mcg PO DAILY Qty: 270 3RF hyoscyamine sulfate 0.125 mg tablet 0.125 mg PO DAILY PRN (Reason: dyspepsia) Qty: 90 0RF losartan 100 mg tablet 100 mg PO DAILY Qty: 90 3RF medroxyprogesterone [Provera] 5 mg tablet 5 mg PO DAILY Qty: 90 3RF estradiol 1 mg tablet 1 mg PO DAILY Qty: 90 3RF methocarbamol 750 mg tablet 750 - 1,500 mg PO Q6H PRN (Reason: muscle spasm) Qty: 120 5RF amlodipine 10 mg tablet 10 mg PO DAILY Qty: 90 3RF atorvastatin 10 mg tablet 10 mg PO QPM Qty: 90 3RF duloxetine 60 mg capsule,delayed release(DR/EC) 60 mg PO DAILY Qty: 90 3RF naloxone 4 mg/actuation spray,non-aerosol 4 mg intranasal Q3M Patient Comments: PRN dicyclomine 10 mg capsule 10 mg PO BID PRN (Reason: GI sx) Qty: 15 2RF celecoxib 100 mg capsule 100 mg PO BID PRN (Reason: pain) Qty: 180 3RF pregabalin 100 mg capsule 100 mg PO TID Qty: 90 5RF methadone 5 mg tablet 7.5 mg PO QID Qty: 180 0RF pantoprazole 40 mg tablet,delayed release (DR/EC) 40 mg PO BID Qty: 180 3RF cevimeline 30 mg Capsule 1 cap PO TID Discontinued methadone 5 mg tablet 5 mg PO QID Qty: 180 0RF amoxicillin-pot clavulanate 875-125 mg tablet 1 tab PO BID Qty: 20 0RF azithromycin 250 mg tablet See Rx Instructions .ROUTE .COMPLEX Qty: 6 0RF Rx Instructions: For 250 mg dose pack: take 500 mg today (day 1), then 250 mg for 4 days (days 2-5) Follow up/Referrals: Lucas Anton MD [Primary Care Provider, Internal Medicine] Diet/Activity/Treatments Diet: Regular Skin/Wound/Dressing Care Report to your healthcare provider any signs of infection, such as:: chills, fever, night sweats and increased pain Visit Report/Discharge Packet Stand Alone Forms: Patient Portal/API, Stroke Signs & Symptoms Discharge Data Primary Care Provider: Lucas Anton V Quality MIPS - Admit I confirm the patient?s Advance Care Plan is present, Code status is documented, Surrogate decision maker is in patient?s record [If Yes, STOP here]: Yes MIPS - Meds 'Current medications' to include all prescriptions, [id number] products, herbals, cannabis/cannabidiol products, and vitamin/mineral/dietary (nutritional) supplements. I have utilized all available resources to obtain, update, or review the patient?s current medications. [If Yes, STOP here]: Yes MIPS - DC The patient has a history of heart transplant or Left Ventricular Assist Device (LVAD). If yes, STOP here.: No The patient has current or prior documentation of left ventricular ejection fraction (LVEF) less than or equal to 40%, or moderate or severely depressed left ventricular systolic function.: No A. The patient was prescribed or already taking an Angiotensin-Converting Enzyme (DANTE) Inhibitor, or Angiotensin Receptor Michelle (ARB).: Yes B. The patient was prescribed or already taking a beta-michelle. [If Yes to Both A & B, STOP here]: No Patient not prescribed/taking DANTE or ARB, no reason given.: No Patient not prescribed/taking beta-michelle, no reason given.: No PROFEE Charge Codes Discharge inpatient/observation: [id number]
[2025-02-04 08:00] VITALS: BP 149/77; PULSE 67; RESP 16; TEMP 36.6; O2SAT 98
[2025-02-04] MEDS: METHADONE INTENSOL 10 MG/ML ORAL.CONC 7.5 MG PO (08:44)
[2025-02-04] MEDS: PREGABALIN 25 MG CAPSULE 100 MG PO (08:44)
[2025-02-04] MEDS: POTASSIUM CHLORIDE 20 MEQ TAB 40 MEQ PO (08:44)
[2025-02-04 08:45] VITALS: BP 149/77; PULSE 67
[2025-02-04] MEDS: LOSARTAN 50 MG TABLET 100 MG PO (08:45)
[2025-02-04] MEDS: PANTOPRAZOLE DR 40 MG TABLET PO (08:45)
[2025-02-04] MEDS: DOXYCYCLINE HYCLATE 100 MG TABLET PO (08:45)
--- NOTE | 2025-02-04 10:25 | PT.IPTN ---
Current Diagnoses Pneumonia, unspecified organism (02/02/25) Physical Therapy Treatment Note M2 PT-IP Current Condition Start: 02/03/25 12:21 Freq: Status: Active Protocol: Document 02/03/25 12:21 NW (Rec: 02/03/25 12:33 NW [id number]) Physical Therapy Current Condition Current Condition Evaluation Date 02/03/25 Treatment Diagnosis Pneumonia, Weakness Onset Date 02/02/25 M3 PT-IP Subjective Start: 02/03/25 12:21 Freq: Status: Active Protocol: Document 02/04/25 10:25 DLM (Rec: 02/04/25 10:42 DLM [id number]) Subjective Physical Therapy Visit Type Type Treatment Note Visit Start Time 09:55 Visit Stop Time 10:25 Notes 30 min Number of KOSHER INSPECTOR Visits 0 Physical Therapy Visit Comments Patient Comments She feels better today. Patient Goals Discharge home Therapy Pain Assessment Pain When Pain Assessed During Mobility Pain Present Pain Present Denied Pain M4 PT-IP Mobility and Gait Start: 02/03/25 12:21 Freq: Status: Active Protocol: Document 02/04/25 10:25 DLM (Rec: 02/04/25 10:42 DLM [id number]) PT-Transfer Assessment Sit to and From Stand Sit to and from Independent,Use of Upper Extremities Stand Equipment Transfer Assistive Gait Belt,Front Wheeled Walker Device Transfers Transfer Destination Chair Transfer Technique Stand Step Pivot Transfer Ability Level of Assist Independent Comments Mobility Comments Pt sitting up in recliner today. She wants to stay up to get ready to go home. Gait Assessment Gait Gait Assistance Independent Required: Distance (Feet) 300 Assistive Devices Assistive Device Gait Belt,Front Wheeled Walker Gait Deviations General Gait Pattern Within Normal Limits Comments Gait Comments No shortness of breath with gait, no complaints by pt Stair Climbing Assessment Comments Stair Climbing ramp at home Comments PT-Balance Assessment Sitting Balance and Reactions Static Sitting Normal Balance Ability Dynamic Sitting Normal Balance Ability Standing Balance and Reactions Static Standing Good Balance Ability Dynamic Standing Good Balance Ability Device Used FWW M5 PT-IP Objective Assessments Start: 02/03/25 12:21 Freq: Status: Active Protocol: Document 02/03/25 12:21 NW (Rec: 02/03/25 12:33 NW [id number]) Orientation Orientation/Cognition Level of Alertness Alert Orientation Name,Age,Birthday,Month,Date,Year,Day of Week,Place, Situation Gross Range of Motion Lower Extremity ROM Assessment Within Functional Limits Strength Lower Extremity Strength Assessment Within Functional Limits Sensation Assessment Sensation Gross Sensation WNL M6 PT-IP Treatment Start: 02/03/25 12:21 Freq: Status: Active Protocol: Document 02/04/25 10:25 DLM (Rec: 02/04/25 10:42 DLM [id number]) Physical Therapy Treatment Exercises Exercises Ankle Pumps,Seated Knee Flexion/Extension Education Education Provided Safety Other Treatments Other Treatment Additional ex: seated hip flexion and sit-stand with UE Performed support Educated pt to gradually increase her activity at home M7 PT-IP Assessment and Plan Start: 02/03/25 12:21 Freq: Status: Active Protocol: Document 02/04/25 10:25 DLM (Rec: 02/04/25 10:42 DLM [id number]) PT Summary Assessment and Plan Summary Progress Towards Safe For Discharge,Goals Met Goals Assessment Summary Juan reports feeling much better today. She tolerated increased activity this visit. No shortness of breath and no cough. She was able to ambulate increased distances in the [place] with safe use of FWW. She met her therapy goals. Continue to recommend home with support of her friend and home health to assist with her functional recovery and assess fall risks at home. Frequency of Treatment Frequency Of Discharge Treatment Recommendations To Nursing Amount of Assist Standby Assistance Needed Discharge Recommendations PT Discharge Home with Assistance,Home Health Recommendations Other Discharge friend supports her, her friend ambulates with Fww Recommendations - PT assist 1
--- NOTE | 2025-02-04 11:21 | CM.DPC ---
HH order sent to [facility] .
--- NOTE | 2025-02-04 11:55 | PT.IPTN ---
Current Diagnoses Pneumonia, unspecified organism (02/02/25) Physical Therapy Treatment Note M2 PT-IP Current Condition Start: 02/03/25 12:21 Freq: Status: Active Protocol: Document 02/03/25 12:21 NW (Rec: 02/03/25 12:33 NW [id number]) Physical Therapy Current Condition Current Condition Evaluation Date 02/03/25 Treatment Diagnosis Pneumonia, Weakness Onset Date 02/02/25 M3 PT-IP Subjective Start: 02/03/25 12:21 Freq: Status: Active Protocol: Document 02/04/25 10:25 DLM (Rec: 02/04/25 10:42 DLM [id number]) Subjective Physical Therapy Visit Type Type Treatment Note Visit Start Time 09:55 Visit Stop Time 10:25 Notes 30 min Number of PERSONAL LINES AGENT Visits 0 Physical Therapy Visit Comments Patient Comments She feels better today. Patient Goals Discharge home Therapy Pain Assessment Pain When Pain Assessed During Mobility Pain Present Pain Present Denied Pain M4 PT-IP Mobility and Gait Start: 02/03/25 12:21 Freq: Status: Active Protocol: Document 02/04/25 10:25 DLM (Rec: 02/04/25 10:42 DLM [id number]) PT-Transfer Assessment Sit to and From Stand Sit to and from Independent,Use of Upper Extremities Stand Equipment Transfer Assistive Gait Belt,Front Wheeled Walker Device Transfers Transfer Destination Chair Transfer Technique Stand Step Pivot Transfer Ability Level of Assist Independent Comments Mobility Comments Pt sitting up in recliner today. She wants to stay up to get ready to go home. Gait Assessment Gait Gait Assistance Independent Required: Distance (Feet) 300 Assistive Devices Assistive Device Gait Belt,Front Wheeled Walker Gait Deviations General Gait Pattern Within Normal Limits Comments Gait Comments No shortness of breath with gait, no complaints by pt Stair Climbing Assessment Comments Stair Climbing ramp at home Comments PT-Balance Assessment Sitting Balance and Reactions Static Sitting Normal Balance Ability Dynamic Sitting Normal Balance Ability Standing Balance and Reactions Static Standing Good Balance Ability Dynamic Standing Good Balance Ability Device Used FWW M5 PT-IP Objective Assessments Start: 02/03/25 12:21 Freq: Status: Active Protocol: Document 02/03/25 12:21 NW (Rec: 02/03/25 12:33 NW [id number]) Orientation Orientation/Cognition Level of Alertness Alert Orientation Name,Age,Birthday,Month,Date,Year,Day of Week,Place, Situation Gross Range of Motion Lower Extremity ROM Assessment Within Functional Limits Strength Lower Extremity Strength Assessment Within Functional Limits Sensation Assessment Sensation Gross Sensation WNL M6 PT-IP Treatment Start: 02/03/25 12:21 Freq: Status: Active Protocol: Document 02/04/25 10:25 DLM (Rec: 02/04/25 10:42 DLM [id number]) Physical Therapy Treatment Exercises Exercises Ankle Pumps,Seated Knee Flexion/Extension Education Education Provided Safety Other Treatments Other Treatment Additional ex: seated hip flexion and sit-stand with UE Performed support Educated pt to gradually increase her activity at home M7 PT-IP Assessment and Plan Start: 02/03/25 12:21 Freq: Status: Active Protocol: Document 02/04/25 10:25 DLM (Rec: 02/04/25 10:42 DLM [id number]) PT Summary Assessment and Plan Summary Progress Towards Safe For Discharge,Goals Met Goals Assessment Summary Juan reports feeling much better today. She tolerated increased activity this visit. No shortness of breath and no cough. She was able to ambulate increased distances in the [place] with safe use of FWW. She met her therapy goals. Continue to recommend home with support of her friend and home health to assist with her functional recovery and assess fall risks at home. Frequency of Treatment Frequency Of Discharge Treatment Recommendations To Nursing Amount of Assist Standby Assistance Needed Discharge Recommendations PT Discharge Home with Assistance,Home Health Recommendations Other Discharge friend supports her, her friend ambulates with Fww Recommendations - PT assist 1
--- NOTE | 2025-02-04 13:57 | PC.NURSE ---
Pt discharged home on home health at 1135, escorted off floor in wheelchair accompanied by friend and hospital staff. IV removed, discharge teaching completed including new medications, follow up appointment and worsening symptoms. Patient left the floor with all belongings.
== END 2025-02-04 11:45 | disposition home health service (06) | DRG 195 ==
LOC: ED 18:26 → AC 18:50 → LABOR 02-03 00:30 → AC 02-03 14:52
PROVIDERS: Internal Medicine Infectious Disease; Admitting Provider Internal Medicine; Emergency Provider Emergency Medicine; PCP Internal Medicine; Referring Provider Emergency Medicine; Visit Provider Internal Medicine
DX: J18.9 Pneumonia, unspecified organism (principal); G89.29 Other chronic pain; M54.9 Dorsalgia, unspecified; R53.1 Weakness; R62.7 Adult failure to thrive; K58.0 Irritable bowel syndrome with diarrhea; K21.9 Gastro-esophageal reflux disease without esophagitis; E78.5 Hyperlipidemia, unspecified; E03.9 Hypothyroidism, unspecified; F32.A Depression, unspecified; I11.0 Hypertensive heart disease with heart failure; I50.9 Heart failure, unspecified; F41.9 Anxiety disorder, unspecified; G62.9 Polyneuropathy, unspecified; Z79.891 Long term (current) use of opiate analgesic; Z79.890 Hormone replacement therapy
CPT/HCPCS: 36415; 71275; 80048; 80053; 81001; 82550; 82805; 83605; 83880; 84145; 84484; 85025; 87040; 93005; 96365; 97110; 97116; 97161; 97165; 97530; 99284; J0696; J1650; J1885; J2543; J7030; J7050; Q9967